=== PATIENT | male | born 1945 | race Caucasian/White ===

== ENCOUNTER 2020-05-05 20:43 | Inpatient (IN) | payer MEDICARE, OTHER, SELFPAY ==
[2020-05-05 20:50] VITALS: BP 176/57; PULSE 72; RESP 20; TEMP 38; O2SAT 95; BMI 30.8
--- NOTE | 2020-05-05 21:05 | CT_ITS ---
EXAMINATION: CT ABDOMEN AND PELVIS WITHOUT CONTRAST CLINICAL INFORMATION: LLQ pain ? diverticulitis with perforation . COMPARISON: Prior studies including the 04/14/2015 CT scan. TECHNIQUE: Multidetector volumetric imaging was performed from the superior aspect of the liver through the pubic symphysis without contrast per request. Sagittal and coronal reformatted images were obtained on the technologist workstation. This CT examination was performed using dose optimization techniques as appropriate, variously including the following: *Automated exposure control *Adjustment of mA and/or kV according to patient size (this includes techniques or standardized protocols for targeted exams where dose is matched to indication/reason for exam; i.e. extremities or head) *Use of iterative reconstruction technique DLP: 688 mGy-cm. FINDINGS: LUNG BASES: The visualized lung bases are unremarkable. Small hiatal hernia LIVER, GALLBLADDER, BILIARY TREE: The non-contrast liver is normal in size, shape, and attenuation. No focal hepatic lesion or biliary ductal dilatation is present. Gallbladder surgically absent PANCREAS: Atrophic SPLEEN: Unremarkable. ADRENAL GLANDS: Unremarkable. KIDNEYS AND URETERS: The kidneys are normal in size, shape, and attenuation. No hydronephrosis, hydroureter, or calculi seen. No perinephric stranding. BLADDER: Decompressed. GASTROINTESTINAL TRACT: Extensive colonic diverticulosis more so in the sigmoid colon. No obstructive changes are noted. There is abnormal appearance to the right lower quadrant/cecum. Although this area is decompressed but does appear to be wall thickening extending to an abnormal appearing thickened appendix that had a more normal appearance on the 2015 study. This appendix is very ill-defined currently measures up to 1.6 cm in diameter with surrounding likely complex fluid. This difficult to assess on this noncontrast study. There is free fluid seen elsewhere in the abdomen and pelvis more so in the dependent portion of the pelvis ABDOMINAL WALL: Small fat-containing hiatal hernia. There is a soft tissue nodule within this hernia possibly representing a Sister Myrtle José nodule. This nodule was not seen on the 2015 study LYMPHOVASCULAR STRUCTURES: Again there is diffuse bulky adenopathy within the root of the mesentery extending to the mesenteric fat. There is also adenopathy in the retroperitoneum periaortic and pericaval locations. The bulk of the adenopathy appears similar to the prior study suggesting a more chronic indolent process. Vascular calcification within the aorta iliac system. PELVIC VISCERA: Incidental prostatic calcifications OSSEUS STRUCTURES: Multiple degenerative changes in the spine. 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 CT/CT abdomen pelvis wo con IMPRESSION: This is an unusual study. There is bulky mesenteric and retroperitoneal adenopathy as noted on the 2015 study. In the acute setting leukemia/lymphoma would be suspected with this appearance and distribution however this has been present since 2015 suggesting possible indolent process although low-grade lymphoma/leukemia would be suspected. Interestingly the spleen does not appear to be enlarged. Although some of the changes in the periappendiceal/right lower quadrant region could be related to the patient's underlying diffuse adenopathy I'm more concerned that there is a ill-defined appendiceal mass now with periappendiceal stranding and complex fluid. This area had a more normal appearance on the 2015 study. This is difficult to define further on this study without intravenous contrast. I would recommend repeating the CT scan of the abdomen and pelvis with both oral and IV contrast to evaluate this further. There is a small fat-containing periumbilical hernia that does contain a new 1 cm nodule which was not present on the 2015 study. This nodule could represent a Sister Myrtle Kumar nodule which can be seen in the setting of underlying abdominal malignancy. Clinical correlation recommended. Likely biopsy of this nodule will be needed. This critical result was discussed with Dr. Copeland at 05/05/2020 10:11 PM and it was ascertained that the content and urgency of the report was understood at the time of direct communication.
--- NOTE | 2020-05-05 21:05 | ECG_ITS ---
Test Reason : AFIB Blood Pressure : / mmHG Vent. Rate : 076 BPM Atrial Rate : 080 BPM P-R Int : 000 ms QRS Dur : 098 ms QT Int : 362 ms P-R-T Axes : 000 -42 046 degrees QTc Int : 407 ms Rhythm shows atrial flutter with variable block with occasional Premature ventricular complexes Left axis deviation Abnormal ECG When compared with ECG of 18-APR-2019 23:18, Rhythm shows atrial flutter with variable block has replaced Atrial fibrillation Premature ventricular complexes are new \ Referred By: Burton Copeland Electronically Signed By:KAYLEN DOHERTY MD
--- NOTE | 2020-05-05 21:06 | ED.ABDPAIN ---
HPI - Abdominal Pain General Chief Complaint: Abdominal Pain Stated Complaint: ABDOMINAL PAIN Time Seen by Provider: 05/05/20 20:55 Source: patient Mode of arrival: ambulatory Limitations: no limitations History of Present Illness HPI narrative: patient with history of diverticulitis in the past on Eliquis for AFib was doing okay until yesterday morning when he woke up and went to bathroom noticed sudden onset of pain in mid abdomen pain stayed throughout the day off and on did not feel hungry feel bloated got better a little bit today and just prior to arrival when she got up from the chair noticed severe pain mostly on the left lower quadrant also radiating to the right lower quadrant that brought to the ER. Patient denied nausea/vomiting did not eat much for last 48 hours MD elicited complaint: abdominal pain Pertinent past history: none Onset (ago): day(s) (2) Location: diffuse, RLQ and LLQ Severity: moderate Quality: dull Radiation: LLQ and RLQ Exacerbating factors: eating and movement Relieving factors: nothing Associated symptoms: anorexia Related Data Previous Rx's Medication Instructions Recorded hydrochlorothiazide 25 mg tablet 25 mg PO DAILY #90 tab 04/02/20 Allergies Allergy/AdvReac Type Severity Reaction Status Date / Time No Known Allergies Allergy Unverified 03/18/20 14:39 [No Known Allergies*] Review of Systems Review of Systems REVIEW OF SYSTEMS: Pertinent positives and negatives are stated above in the history. GEN: no fevers, chills, fatigue HEENT: no nasal congestion, sore throat, ear pain NEURO: no headache, dizziness, focal weakness PULM: no cough, shortness of breath CV: no chest pain, palpitations, LE edema ABD: no nausea, vomiting, diarrhea : no dysuria, urgency, frequency SKIN: no rash ROS otherwise negative x 10 Physical Exam Vital Signs: Vital Signs: Vital Signs Temp Pulse Resp BP Pulse Ox 05/05/20 22:29 80 20 167/64 H 96 05/05/20 20:50 100.4 F 72 20 176/57 H 95 Body Mass Index 30.8 VITAL SIGNS: Reviewed. GENERAL: Well developed, well nourished, in mild distress. HEAD: Normocephalic/atraumatic, EYES: PERRLA No pallor/icterus noted EARS: Ext canals without abnormality NOSE: Nares patent bilateral OROPHARYNX: Oral mucosa moist no oral lesions NECK: Supple, no adenopathy LUNGS: Normal breath sounds. No adventitious sounds or accessory muscle use CARDIOVASCULAR: Regular rate and rhythm without noted murmurs, no JVD or lower extremity edema. ABDOMEN: Soft, deep percussion tenderness LLQ and RLQ. No rigidity. + guarding. No palpable masses or hernias noted MUSCULOSKELETAL: No tenderness, deformities, EXTREMITIES: No cyanosis or edema. SKIN: no rashes, NEUROLOGIC: Alert and oriented x 3. 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 Case discussed with Dr. Leroy surgeon will evaluate the patient in the morning does not think is a surgical case at this time will admit the patient to medical service patient is not septic at this time MDM - Abdominal Pain Differential Diagnosis Differential diagnosis: Likely abdominal pain, acute appendicitis, diverticulitis and pancreatitis Medical Records Attestation: I reviewed the patient's medical records. Lab Data Attestation: I reviewed the patient's lab results. Result diagrams: 05/05/20 21:32 05/05/20 21:32 Labs: Lab Results 05/05/20 05/05/20 05/05/20 Range/Units 21:32 21:32 21:32 WBC 8.5 (4.8-10.8) X10*3/uL RBC 4.66 (4.60-5.80) X10*6/uL Hgb 15.5 (14.0-18.0) g/dl Hct 45.1 (42-52) % MCV 96.8 (80-98) fL MCH 33.3 H (27.0-33.0) pg MCHC 34.4 (31.0-36.0) g/dl RDW 12.9 (11.0-16.0) % Plt Count 165 (160-400) X10*3/uL MPV 9.4 (9.4-12.4) fL Immature Gran % (Auto) 0.2 (0.0-0.4) % Neut % (Auto) 89.7 H (45-73) % Lymph % (Auto) 4.0 L (20-40) % [place] % (Auto) 5.8 (2-11) % Eos % (Auto) 0.1 (0-4) % Baso % (Auto) 0.2 (0-2) % Lymph # (Auto) 0.3 L (1.2-4.9) X10*3/uL [place] # (Auto) 0.5 (0.1-1.2) X10*3/uL Eos # (Auto) 0.0 (0.0-0.4) X10*3/uL Baso # (Auto) 0.0 (0.0-0.2) X10*3/uL Abs Immat Gran (auto) 0.02 (0.00-0.03) X10*3/uL Absolute Neuts (auto) 7.6 (2.0-8.3) X10*3/uL Absolute Nucleated RBC 0.000 (0.0-0.012) X10*3/uL Nucleated RBC % (auto) 0.0 (0.0-0.2) /100WBC Smear Tech's Comments VERIFIED PT (10.8-13.0) SEC INR (0.9-1.1) APTT (24.1-38.0) SEC Sodium 141 (135-145) mmol/L Potassium 3.9 (3.3-5.1) mmol/l Chloride 99 (96-108) mmol/L Carbon Dioxide 31 H (22-29) mmol/L Anion Gap 15 (12-20) BUN 21 H (9-16) mg/dL Creatinine 0.83 (0.5-1.4) mg/dL Estim Creat Clear Calc 79.3 Estimated GFR > 60 Random Glucose 115 (60-115) mg/dL Lactic Acid 2.5 H* (0.5-2.0) mmol/L Calcium 9.4 (8.4-10.2) mg/dL Total Bilirubin 1.7 H (0.0-1.0) mg/dL AST 35 (5-37) U/L ALT 36 (0-40) U/L Alkaline Phosphatase 61 (39-117) U/L Total Protein 7.5 (6.5-8.0) g/dL Albumin 4.6 (3.5-5.0) g/dL Lipase 11 (8-78) U/L Urine Color Urine Appearance Urine pH (5.0-8.0) Ur Specific Louise (1.005-1.025) Urine Protein (NEG-TRACE) MG/DL Urine Glucose (UA) (NEG) MG/DL Urine Ketones (NEG) MG/DL Urine Blood (NEG) Urine Nitrite (NEG) Ur Leukocyte Esterase (NEG) Urine RBC (0) /HPF Urine WBC (0-4) /HPF Ur Squamous Epith Cells /LPF Calcium Oxalate Crystal /LPF Urine Bacteria /LPF 05/05/20 05/05/20 Range/Units 21:59 21:59 WBC (4.8-10.8) X10*3/uL RBC (4.60-5.80) X10*6/uL Hgb (14.0-18.0) g/dl Hct (42-52) % MCV (80-98) fL MCH (27.0-33.0) pg MCHC (31.0-36.0) g/dl RDW (11.0-16.0) % Plt Count (160-400) X10*3/uL MPV (9.4-12.4) fL Immature Gran % (Auto) (0.0-0.4) % Neut % (Auto) (45-73) % Lymph % (Auto) (20-40) % [place] % (Auto) (2-11) % Eos % (Auto) (0-4) % Baso % (Auto) (0-2) % Lymph # (Auto) (1.2-4.9) X10*3/uL [place] # (Auto) (0.1-1.2) X10*3/uL Eos # (Auto) (0.0-0.4) X10*3/uL Baso # (Auto) (0.0-0.2) X10*3/uL Abs Immat Gran (auto) (0.00-0.03) X10*3/uL Absolute Neuts (auto) (2.0-8.3) X10*3/uL Absolute Nucleated RBC (0.0-0.012) X10*3/uL Nucleated RBC % (auto) (0.0-0.2) /100WBC Smear Tech's Comments PT 18.0 H (10.8-13.0) SEC INR 1.5 H (0.9-1.1) APTT 32.1 (24.1-38.0) SEC Sodium (135-145) mmol/L Potassium (3.3-5.1) mmol/l Chloride (96-108) mmol/L Carbon Dioxide (22-29) mmol/L Anion Gap (12-20) BUN (9-16) mg/dL Creatinine (0.5-1.4) mg/dL Estim Creat Clear Calc Estimated GFR Random Glucose (60-115) mg/dL Lactic Acid (0.5-2.0) mmol/L Calcium (8.4-10.2) mg/dL Total Bilirubin (0.0-1.0) mg/dL AST (5-37) U/L ALT (0-40) U/L Alkaline Phosphatase (39-117) U/L Total Protein (6.5-8.0) g/dL Albumin (3.5-5.0) g/dL Lipase (8-78) U/L Urine Color YELLOW Urine Appearance HAZY Urine pH 7.5 (5.0-8.0) Ur Specific Louise 1.020 (1.005-1.025) Urine Protein NEG (NEG-TRACE) MG/DL Urine Glucose (UA) NEG (NEG) MG/DL Urine Ketones NEG (NEG) MG/DL Urine Blood 1+ H (NEG) Urine Nitrite NEG (NEG) Ur Leukocyte Esterase NEG (NEG) Urine RBC 10-14 H (0) /HPF Urine WBC 1-4 (0-4) /HPF Ur Squamous Epith Cells TRACE /LPF Calcium Oxalate Crystal 1+ /LPF Urine Bacteria TRACE /LPF Imaging Data CT scan - abdomen: Radiologist's impression: CT/CT abdomen pelvis wo con IMPRESSION: This is an unusual study. There is bulky mesenteric and retroperitoneal adenopathy as noted on the 2015 study. In the acute setting leukemia/lymphoma would be suspected with this appearance and distribution however this has been present since 2015 suggesting possible indolent process although low-grade lymphoma/leukemia would be suspected. Interestingly the spleen does not appear to be enlarged. Although some of the changes in the periappendiceal/right lower quadrant region could be related to the patient's underlying diffuse adenopathy I'm more concerned that there is a ill-defined appendiceal mass now with periappendiceal stranding and complex fluid. This area had a more normal appearance on the 2015 study. This is difficult to define further on this study without intravenous contrast. I would recommend repeating the CT scan of the abdomen and pelvis with both oral and IV contrast to evaluate this further. There is a small fat-containing periumbilical hernia that does contain a new 1 cm nodule which was not present on the 2015 study. This nodule could represent a Sister Myrtle Kumar nodule which can be seen in the setting of underlying abdominal malignancy. Clinical correlation recommended. Likely biopsy of this nodule will be needed. This critical result was discussed with Dr. Copeland at 05/05/2020 10:11 PM and it was ascertained that the content and urgency of the report was understood at the time of direct communication. Discharge Plan Discharge Clinical Impression: Abdominal pain Qualifiers: Abdominal location: generalized Qualified Code(s): R10.84 - Generalized abdominal pain Lymphoma Qualifiers: Lymphoma type: non-Hodgkin Non-Hodgkin lymphoma type: unspecified type Lymphoma site: intra-abdominal nodes Qualified Code(s): C85.93 - Non-Hodgkin lymphoma, unspecified, intra-abdominal lymph nodes Patient Disposition: Admitted As Inpatient [facility] Social History Social History Alcohol intake: current Alcohol intake frequency: 0-2 drinks per day Alcohol type: hard liquor Smoking Status: Former smoker Smoked in Last 30 Days: No Use of substances other than those prescribed or required for medical reasons: No Advance Directives: No Advance Directives Information Provided: Yes
[2020-05-05 21:44] LABS: Basophils Percent Auto 0.2 % (0-2); Eosinophils Percent Auto 0.1 % (0-4); Hematocrit 45.1 % (42-52); Hemoglobin 15.5 g/dl (14.0-18.0); Imm Gran Abs Auto 0.02 X10*3/uL (0.00-0.03); Imm Gran Pct Auto 0.2 % (0.0-0.4); Lymphocytes Absolute Auto 0.3 X10*3/uL (1.2-4.9); MANUAL DIFF FLAG SCAN; Mean Corpuscular HGB Conc 34.4 g/dl (31.0-36.0); Mean Corpuscular Hemoglobin 33.3 pg (27.0-33.0); Mean Corpuscular Volume 96.8 fL (80-98); Mean Platelet Volume 9.4 fL (9.4-12.4); Monocytes Absolute Auto 0.5 X10*3/uL (0.1-1.2); Monocytes Percent Auto 5.8 % (2-11); Neutrophils Absolute Auto 7.6 X10*3/uL (2.0-8.3); Neutrophils Percent Auto 89.7 % (45-73); Platelet Count 165 X10*3/uL (160-400); Red Blood Count 4.66 X10*6/uL (4.60-5.80); Red Cell Distribution Width 12.9 % (11.0-16.0); SCAN SMEAR FLAG 1; White Blood Count 8.5 X10*3/uL (4.8-10.8)
[2020-05-05 21:49] LABS: SLIDE REVIEW VERIFIED
[2020-05-05 22:03] LABS: Lactic Acid 2.5 mmol/L (0.5-2.0)
[2020-05-05 22:10] LABS: Glucose Urine UA NEG (NEG); Leukocyte Esterase Urine NEG (NEG); Nitrite Urine NEG (NEG); PH 7.5 (5.0-8.0); Urine Blood 1+ (NEG); Urine Ketones NEG (NEG); Urine Protein NEG (NEG-TRACE)
[2020-05-05 22:12] LABS: Appearance Urine HAZY; Color Urine YELLOW
[2020-05-05 22:17] LABS: Bacteria Urine TRACE /LPF; Calcium Oxalate Crystals Urine 1+ /LPF; Squamous Epithelial Cell Urine TRACE /LPF
[2020-05-05] MEDS: 0.9 % Sodium Chloride 1,000 ML 999 ML IVCONT ×2 (22:19)
[2020-05-05] MEDS: Piperacillin Sodium/Tazobactam 3.375 GM in 0.9 % Sodium Chloride 50 ML IV (22:26)
[2020-05-05 22:29] VITALS: BP 167/64; PULSE 80; RESP 20; O2SAT 96
[2020-05-05 22:30] LABS: Alanine Aminotransferase 36 U/L (0-40); Albumin Level 4.6 g/dL (3.5-5.0); Alkaline Phosphatase 61 U/L (39-117); Anion Gap 15 (12-20); Aspartate Amino Transferase 35 U/L (5-37); Bilirubin Total 1.7 mg/dL (0.0-1.0); Blood Urea Nitrogen 21 mg/dL (9-16); Calcium 9.4 mg/dL (8.4-10.2); Carbon Dioxide 31 mmol/L (22-29); Chloride 99 mmol/L (96-108); Creatinine Clr Calc Pharmacy 79.3; Estimated Glomerular Filt Rate > 60; Glucose Random 115 mg/dL (60-115); Lipase 11 U/L (8-78); Potassium 3.9 mmol/l (3.3-5.1); Sodium 141 mmol/L (135-145); Total Protein 7.5 g/dL (6.5-8.0)
[2020-05-05 22:50] LABS: INTERNATIONAL NORM RATIO 1.5 (0.9-1.1)
[2020-05-05 22:53] LABS: Partial Thromboplastin Time 32.1 SEC (24.1-38.0)
[2020-05-05 23:33] LABS: Reflex Lactate? Lactic Acid Added
--- NOTE | 2020-05-05 23:47 | PC.NURSE ---
pt was seen by the hospitalist and pt mentioned he wanted his girlfriend to take his wallet and his sanderson [phone] which was verified with pt with this rn and with [address] way. money and wallet handed over and counted infront of his girlfriend tiago [phone].
[2020-05-06] VITALS: BP 133/46; PULSE 78; RESP 18; O2SAT 98
--- NOTE | 2020-05-06 | CT_ITS ---
EXAMINATION: CT ABDOMEN AND PELVIS WITH CONTRAST CLINICAL INFORMATION: Abdominal mass. COMPARISON: CT abdomen and pelvis 04/14/2015 and 05/05/2020 TECHNIQUE: Multidetector volumetric images were obtained from the superior aspect of the liver through the pubic symphysis following administration 85 mL ofOmnipaque 350 intravenous contrast. Sagittal and coronal reformatted images were obtained on the technologist's workstation. Oral contrast: No This CT examination was performed using dose optimization techniques as appropriate, variously including the following: *Automated exposure control *Adjustment of mA and/or kV according to patient size (this includes techniques or standardized protocols for targeted exams where dose is matched to indication/reason for exam; i.e. extremities or head) *Use of iterative reconstruction technique DLP: 453 mGy-cm FINDINGS: LUNG BASES: The heart size is normal. Lung bases are clear. LIVER, GALLBLADDER, AND BILIARY TREE: The liver is normal in size, shape, and attenuation. There are punctate hypodensities seen in right lobe and right hepatic lobe presumed small cysts there are surgical clips in the right hepatic fossa from previous cholecystectomy. PANCREAS: There is minimal haziness seen surrounding the head and the uncinate process of the pancreas.. SPLEEN: Unremarkable. ADRENAL GLANDS: Unremarkable. KIDNEYS AND URETERS: The kidneys are normal in size, shape, and attenuation. No hydronephrosis, hydroureter, or calculi seen. No perinephric stranding. BLADDER: Unremarkable. GASTROINTESTINAL TRACT: There is colonic diverticulosis without any mural thickening and pericolic fat stranding to suspect any diverticulitis. There is contrast opacified small bowel loops there is mild mural thickening and periileal fluid collection likely from enteritis rest of the small bowel loops are normal caliber. The stomach is nondistended. Appendix measures 1.2 cm is transverse diameter on axial image 59/3. Mild fat stranding and fluid collection seen in the right paracolic gutter and surrounding appendix. ABDOMINAL WALL: Small umbilical hernia containing small nodule and intraperitoneal fat. LYMPH NODES: Again visualized is diffuse bulky retroperitoneal and extensive mesenteric lymphadenopathy seen in the upper airway study from yesterday similar to yesterday's exam. There is diffuse mesenteric haziness as well. VASCULAR: Mild left ischemic calcification of abdominal aorta without aneurysmal dilatation. PELVIC VISCERA: Unremarkable. OSSEOUS STRUCTURES: No lytic or sclerotic process seen. There is degenerative disc changes and vacuum disc phenomena throughout lumbar spine. No lytic process. CT/CT abdomen pelvis w con IMPRESSION: Diffuse bulky and retroperitoneal adenopathy suspicious for leukemic or lymphoma. There is diffuse mesenteric haziness including fluid and fat stranding surrounding the appendix is now measures 1.2 cm in diameter. Also visualized is mild mural thickening involving the distal ileum which could represent inflammatory or infectious etiology. Small umbilical hernia containing fat and nodule within. Consider CT-guided lymph node biopsy for further evaluation.
--- NOTE | 2020-05-06 00:49 | P.HPIM_ITS ---
History of Present Illness Date of Service: 05/06/20 Chief Complaint: abdominal pain 74 y/o male with PMHX of HTN, Non hodking lymphoma and Afib on eliquis who prsented from home c/o abdominal pain. Per history provided by the patient, for the past 1 day has been having intermittent abdominal pain, more located in the LUQ, 10/10 in intensity, that comes and goes, which started suddently with no precipitating events. Patient reports that has been tolerating diet with no problem, denies any chest pain, SOB, nausea, vomiting or fever. Patient is a poor historian but reports having a hx of non hodking lymphoma which is not currently on treatment as it has been stable over the years. On presentation to the ED, initial work up found to be unremarkable except for lactic acidosis of 2.5. CT adomen done shows evidence of periappendiceal mass and periumbilical nodule which are new compared to previous imaging done. General surgery consulted per ED consulted who suggested medicine admission and surgery for management of mass. Patient seen and evaluated at the bedside, laying down in bed in no acute distress. ROS as above otherwise negative. Physical exam elicits tenderness in the RLQ with no guarding. No palpable mass on evaluation. PMHX: HTN, afib on eliquis, non hodking lymphoma PSx: none Toxic habits: no hx of alcohol abuse, smoking or IVDA Review of Systems Gastrointestinal: Gastrointestinal: Reports other (abdominal pain) [facility] Functional capacity: independent ambulation Family history: reviewed and not pertinent Social History Alcohol intake: current Alcohol intake frequency: 0-2 drinks per day Alcohol type: hard liquor Smoking Status: Former smoker Smoked in Last 30 Days: No Use of substances other than those prescribed or required for medical reasons: No Advance Directives: No Advance Directives Information Provided: Yes Meds Allergies Allergy/AdvReac Type Severity Reaction Status Date / Time No Known Allergies Allergy Unverified 03/18/20 14:39 [No Known Allergies*] Home Medications Medication Instructions Recorded Confirmed Type Flonase 1 spray INTRANASAL DAILY PRN 05/05/20 05/06/20 History apixaban [Eliquis] 1 tab PO BID 05/05/20 05/05/20 History latanoprost 1 drp INTRAOCULAR DAILY 05/05/20 05/06/20 History latanoprost 1 drp OPHTHALMIC (EYE) BEDTIME 05/05/20 05/06/20 History lorazepam 0.5 mg PO DAILY PRN 05/05/20 05/06/20 History losartan 100 mg PO DAILY 05/05/20 05/06/20 History turmeric 1,000 mg PO DAILY 05/05/20 05/06/20 History Physical Exam Vital Signs and Narrative: Vital Signs: Last Vital Signs Temp 100.4 F 05/05/20 20:50 Pulse 80 05/05/20 22:29 Resp 20 05/05/20 22:29 BP 167/64 H 05/05/20 22:29 Pulse Ox 96 05/05/20 22:29 Body Mass Index 30.8 Const: General: cooperative, no acute distress and well developed Orientation/consciousness: oriented to person, oriented to place and oriented to time HENMT: Head: Yes normal to inspection Eyes: General: appearance normal, both eyes and all related structures Neck: Yes normal visual inspection Chest: Chest palpation & inspection: normal inspection of the chest Resp: Effort & Inspection: normal respiratory effort Cardio: Jugular venous distension: no JVD Rhythm: abnormal rhythm Heart sounds: S1 normal heart sound present and S2 normal heart sound present GI: Inspection: Yes normal to inspection Palpation (GI): Other GI palpation findings present (RLQ tenderness) Skin: General skin exam: no rashes or lesions noted Neuro: General: oriented to person, oriented to place and oriented to time Cognition (Neuro): normal cognition Results Labs Labs: Laboratory Tests 05/05/20 05/05/20 05/05/20 21:32 21:32 21:32 WBC 8.5 RBC 4.66 Hgb 15.5 Hct 45.1 MCV 96.8 MCH 33.3 H MCHC 34.4 RDW 12.9 Plt Count 165 MPV 9.4 Immature Gran % (Auto) 0.2 Neut % (Auto) 89.7 H Lymph % (Auto) 4.0 L [place] % (Auto) 5.8 Eos % (Auto) 0.1 Baso % (Auto) 0.2 Lymph # (Auto) 0.3 L [place] # (Auto) 0.5 Eos # (Auto) 0.0 Baso # (Auto) 0.0 Abs Immat Gran (auto) 0.02 Absolute Neuts (auto) 7.6 Absolute Nucleated RBC 0.000 Nucleated RBC % (auto) 0.0 Smear Tech's Comments VERIFIED PT INR APTT Sodium 141 Potassium 3.9 Chloride 99 Carbon Dioxide 31 H Anion Gap 15 BUN 21 H Creatinine 0.83 Estim Creat Clear Calc 79.3 Estimated GFR > 60 Random Glucose 115 Lactic Acid 2.5 H* Calcium 9.4 Total Bilirubin 1.7 H AST 35 ALT 36 Alkaline Phosphatase 61 Total Protein 7.5 Albumin 4.6 Lipase 11 Urine Color Urine Appearance Urine pH Ur Specific [place] Urine Protein Urine Glucose (UA) Urine Ketones Urine Blood Urine Nitrite Ur Leukocyte Esterase Urine RBC Urine WBC Ur Squamous Epith Cells Calcium Oxalate Crystal Urine Bacteria 05/05/20 05/05/20 21:59 21:59 WBC RBC Hgb Hct MCV MCH MCHC RDW Plt Count MPV Immature Gran % (Auto) Neut % (Auto) Lymph % (Auto) [place] % (Auto) Eos % (Auto) Baso % (Auto) Lymph # (Auto) [place] # (Auto) Eos # (Auto) Baso # (Auto) Abs Immat Gran (auto) Absolute Neuts (auto) Absolute Nucleated RBC Nucleated RBC % (auto) Smear Tech's Comments PT 18.0 H INR 1.5 H APTT 32.1 Sodium Potassium Chloride Carbon Dioxide Anion Gap BUN Creatinine Estim Creat Clear Calc Estimated GFR Random Glucose Lactic Acid Calcium Total Bilirubin AST ALT Alkaline Phosphatase Total Protein Albumin Lipase Urine Color YELLOW Urine Appearance HAZY Urine pH 7.5 Ur Specific [place] 1.020 Urine Protein NEG Urine Glucose (UA) NEG Urine Ketones NEG Urine Blood 1+ H Urine Nitrite NEG Ur Leukocyte Esterase NEG Urine RBC 10-14 H Urine WBC 1-4 Ur Squamous Epith Cells TRACE Calcium Oxalate Crystal 1+ Urine Bacteria TRACE Assessment and Plan (1) Lymphoma: Qualifiers: Lymphoma site: intra-abdominal nodes Lymphoma type: non-Hodgkin Non-Hodgkin lymphoma type: unspecified type Qualified Code(s): C85.93 - Non- Hodgkin lymphoma, unspecified, intra-abdominal lymph nodes Status: Acute Hx of nonhodking lymphoma. CT findings of periappendiceal mass which raises question for possible malignancy and periumbilical nodule Pain control serial abdominal exam diet as tolerated follow up CT with and without contrast for better evaluation of mass General surgery for evaluation in the am Hematology/Oncology consult in the am (2) Abdominal pain: Qualifiers: Abdominal location: generalized Qualified Code(s): R10.84 - Generalized abdominal pain Status: Acute as above (3) Hypertension: Status: Acute continue with home BP med (4) Afib: Status: Acute continue with eliquis home meds
[2020-05-06 01:20] LABS: ~Lactic Acid-LAB USE ONLY 1.8 mmol/L (0.5-2.0)
[2020-05-06 01:28] LABS: SARS COV2 PCR INHOUSE NEGATIVE (Negative)
--- NOTE | 2020-05-06 01:47 | PC.NURSE ---
pt is sitting in a chair at bedside. pt denies pain unless he is moving around
[2020-05-06 02:27] VITALS: BP 166/67; PULSE 87; RESP 19; TEMP 37; O2SAT 96
[2020-05-06 07:22] VITALS: BP 165/68; PULSE 71; RESP 18; TEMP 36.8; O2SAT 96
--- NOTE | 2020-05-06 09:20 | MHC.CM.PN ---
Addendum entered by Landy Oseguera 05/06/20 09:26: PCP IS JD WILKERSON Original Note: PATIENT LIVES ALONE. HE HAS A CANE THAT HE USES OCCASIONALLY. FULLY INDEPENDENT AND DRIVES SELF WHERE NEEDED. HCP IS ON FILE. A COPY HAS BEEN PRINTED OUT AND IS NOW IN CHART. PATIENT IS HOPING TO RETURN HOME WITH NO SERVICES. HE IS SCHEDULED FOR PROCEDURE TODAY. CASE MANAGEMENT FOLLOWING. IMM 05/06 IN CHART
[2020-05-06] MEDS: 0.9 % Sodium Chloride Flush 3 ML SYRINGE IVFLUSH (09:32)
--- NOTE | 2020-05-06 10:05 | PM.CNGS ---
History of Present Illness Consult details Narrative: 74-year-old male referred for a [place] appendiceal mass. He came in last night because of what he describes as mild abdominal pain diffusely for the past 2 days. He denies any nausea or vomiting. He had a CAT scan showing a nodule on the umbilicus is as well as a [place] appendiceal mass. His history significant for non-Hodgkin's lymphoma. He said he was being seen by an oncologist in [place] about 5 years ago because of this. He is not very good with the details but apparently is not on treatment anymore. He otherwise states has been doing well. He denies any night sweats or fevers. He does have tremors but he says he has had this for many years. Review of Systems Constitutional: Constitutional: Denies chills and Denies fever(s) Cardiovascular: Cardiovascular: Denies chest pain, Denies dyspnea and Denies dyspnea on exertion Respiratory: Respiratory: Denies cough, Denies dyspnea and Denies dyspnea on exertion Gastrointestinal: Gastrointestinal: Reports abdominal pain, Denies hematochezia and Denies change in bowel habits Genitourinary: Genitourinary: Denies hematuria and Denies difficulty urinating Musculoskeletal: Musculoskeletal: Denies back pain and Denies limited range of motion Neurologic: Denies focal weakness, Denies convulsions and Reports tremor(s) Psychiatric: Psychiatric: Denies depression and Denies mood swings PMFSH Past Medical History Medical History (Updated 05/06/20 @ 10:09 by Star Romano MD) Mass of appendix Functional capacity: independent ambulation Family History Family history: reviewed and not pertinent Social History Social History Household Members: None Housing: Apartment Do you presently have visiting nurse or other home services: No Alcohol intake: current Alcohol intake frequency: 0-2 drinks per day Alcohol type: hard liquor Smoking Status: Former smoker Smoked in Last 30 Days: No Use of substances other than those prescribed or required for medical reasons: No Have you been hit, kicked, punched, or otherwise hurt by someone within the past year? If so, by whom?: No Do you feel safe in your current relationship?: No Is there a partner from a previous relationship who is making you feel unsafe now?: No Are you made to feel afraid or neglected: No Advance Directives: Yes (Daughter) Advance Directives Information Provided: Yes Advance Directives on File: No Advance Directives Date on File: 05/06/20 Do you have thoughts of harming others: None Do you have a plan to hurt others: No Plan Recently lost weight without trying: No service: No Current occupational status: retired Meds Allergies Allergy/AdvReac Type Severity Reaction Status Date / Time No Known Allergies Allergy Unverified 03/18/20 14:39 [No Known Allergies*] Home Medications Medication Instructions Recorded Confirmed Type Flonase 1 spray INTRANASAL DAILY PRN 05/05/20 05/06/20 History apixaban [Eliquis] 1 tab PO BID 05/05/20 05/05/20 History latanoprost 1 drp INTRAOCULAR DAILY 05/05/20 05/06/20 History latanoprost 1 drp OPHTHALMIC (EYE) BEDTIME 05/05/20 05/06/20 History lorazepam 0.5 mg PO DAILY PRN 05/05/20 05/06/20 History losartan 100 mg PO DAILY 05/05/20 05/06/20 History turmeric 1,000 mg PO DAILY 05/05/20 05/06/20 History Physical Exam Vital Signs: Vital Signs: Vital Signs Temp Pulse Resp BP Pulse Ox 05/06/20 07:22 98.3 F 71 18 165/68 H 96 05/06/20 02:27 98.6 F 87 19 166/67 H 96 05/06/20 00:00 78 18 133/46 L 98 05/05/20 22:29 80 20 167/64 H 96 05/05/20 20:50 100.4 F 72 20 176/57 H 95 Body Mass Index 30.8 Const: General: comfortable and no acute distress Orientation/consciousness: patient oriented x3 Neck: Neck: Yes no lymphadenopathy Resp: Auscultation: clear to auscultation bilaterally Cardio: Rhythm: regular rhythm GI: Other: Vague mass on the umbilicus, nontender Palpation (GI): Soft to palpation, nontender and no guarding Neuro: General: patient oriented x3 Results Labs Result diagrams: 05/05/20 21:32 05/05/20 21:32 Labs: Abnormal lab results 05/05/20 05/05/20 05/05/20 Range/Units 21:32 21:32 21:32 MCH 33.3 H (27.0-33.0) pg Neut % (Auto) 89.7 H (45-73) % Lymph % (Auto) 4.0 L (20-40) % Lymph # (Auto) 0.3 L (1.2-4.9) X10*3/uL PT (10.8-13.0) SEC INR (0.9-1.1) Carbon Dioxide 31 H (22-29) mmol/L BUN 21 H (9-16) mg/dL Lactic Acid 2.5 H* (0.5-2.0) mmol/L Total Bilirubin 1.7 H (0.0-1.0) mg/dL Urine Blood (NEG) Urine RBC (0) /HPF 05/05/20 05/05/20 Range/Units 21:59 21:59 MCH (27.0-33.0) pg Neut % (Auto) (45-73) % Lymph % (Auto) (20-40) % Lymph # (Auto) (1.2-4.9) X10*3/uL PT 18.0 H (10.8-13.0) SEC INR 1.5 H (0.9-1.1) Carbon Dioxide (22-29) mmol/L BUN (9-16) mg/dL Lactic Acid (0.5-2.0) mmol/L Total Bilirubin (0.0-1.0) mg/dL Urine Blood 1+ H (NEG) Urine RBC 10-14 H (0) /HPF Short CBC 05/05/20 Range/Units 21:32 WBC 8.5 (4.8-10.8) X10*3/uL Hgb 15.5 (14.0-18.0) g/dl Hct 45.1 (42-52) % Plt Count 165 (160-400) X10*3/uL BMP 05/05/20 21:32 Sodium 141 Potassium 3.9 Chloride 99 Carbon Dioxide 31 H BUN 21 H Creatinine 0.83 Calcium 9.4 Liver Function 05/05/20 Range/Units 21:32 Total Bilirubin 1.7 H (0.0-1.0) mg/dL AST 35 (5-37) U/L ALT 36 (0-40) U/L Alkaline Phosphatase 61 (39-117) U/L Albumin 4.6 (3.5-5.0) g/dL Urine 05/05/20 Range/Units 21:59 Urine Color YELLOW Urine Appearance HAZY Urine pH 7.5 (5.0-8.0) Ur Specific [place] 1.020 (1.005-1.025) Urine Protein NEG (NEG-TRACE) MG/DL Urine Glucose (UA) NEG (NEG) MG/DL All other labs normal. Imaging Abdomen CT scan report/results: report reviewed and image reviewed Assessment and Plan (1) Mass of appendix: Status: Acute He has apparently been heel mass as described above. He also has a nodule on the umbilicus. In the light of his history of non-Hodgkin's lymphoma, I recurrence of the disease has to be ruled out. He is to undergo a repeat CAT scan with oral contrast today. I am going to review this with the radiologist. We will then discuss with the patient the next plan in his care. We may need to have a histopathologic diagnosis of the appendiceal mass via Interventional Radiology if need be. I will follow along while he is in the hospital.
--- NOTE | 2020-05-06 11:04 | MHC.CM.PN ---
PER PHYSICIAN ROUNDS, PLAN IS FOR BIOPSY OF ABDOMINAL MASS, FOLLOWED BY ONCOLOGY AND SURGICAL CONSULTS.
[2020-05-06] MEDS: Apixaban 5 MG TABLET PO (11:21)
[2020-05-06 11:22] VITALS: BP 163/63; PULSE 68
[2020-05-06] MEDS: Losartan Potassium 50 MG TABLET 100 MG PO (11:22)
[2020-05-06] MEDS: Barium Sulfate Oral (Vanilla) 450 ML ORAL.SUSP 900 ML PO (11:35)
[2020-05-06] MEDS: iohexoL 350 MG/ML 100 ML INFUS..BTL 85 ML IV (11:36)
--- NOTE | 2020-05-06 15:03 | PM.CNGS ---
History of Present Illness Consult details Consult date: 05/06/20 Reason for consult: abdominal pain Requesting physician: Abhinav Ferguson Narrative: Sean Carreno Jr LidaWilliam is a 74-year-old male patient presented to the emergency department with complaints of abdominal pain. The pain apparently began in the right upper quadrant and then became more diffuse. Pain did not seem to be associated with p.o. intake. Patient subsequently presented to the emergency department was noted to be tender in the right lower quadrant as well. Workup with a WBC was normal. CT of the abdomen however revealed diffuse mesenteric lymphadenopathy with thickening of the appendix apparent dilation of the appendix felt to be possibly due to lymphoma /leukemia. This morning the patient reports his abdominal pain is much improved and he has a appetite. He denies nausea or vomiting. He does have some pain when moving in bed. Review of Systems Constitutional: Constitutional: Denies chills, Denies fever(s), Denies headache(s) and Denies poor appetite ENT: Denies dizziness and Denies headache(s) Cardiovascular: Cardiovascular: Denies chest pain, Denies rapid heart rate, Denies palpitations and Denies slow heart rate Respiratory: Respiratory: Denies chest congestion, Denies cough, Denies pain on inspiration and Denies wheezing Gastrointestinal: Gastrointestinal: Reports abdominal pain, Denies bloating, Denies change in stool character, Denies constipation, Denies diarrhea, Denies nausea, Denies vomiting and Denies hematemesis Musculoskeletal: Musculoskeletal: Denies back pain, Denies arthralgias, Denies joint swelling and Denies numbness Integumentary/Breasts: Skin/Breast: Denies change in pigmentation, Denies erythema and Denies rash Neurologic: Denies confusion, Denies dizziness, Denies headache(s), Denies focal weakness, Denies numbness, Denies convulsions and Reports tremor(s) Psychiatric: Psychiatric: Denies anxiety, Denies confusion and Denies depression Endocrine: Endocrine: Denies palpitations Hematologic/Lymphatic: Hematologic/Lymphatic: Denies easy bleeding, Denies easy bruising and Denies lymphadenopathy Allergic/Immunologic: Allergic/Immunologic: Denies wheezing PMFSH Past Medical History Medical History (Updated 05/06/20 @ 15:07 by Sean Leroy MD) Afib Hypertension Lymphoma Mass of appendix Functional capacity: independent ambulation Family History Family history: reviewed and not pertinent Social History Social History Household Members: None Housing: Apartment Do you presently have visiting nurse or other home services: No Alcohol intake: current Alcohol intake frequency: 0-2 drinks per day Alcohol type: hard liquor Smoking Status: Former smoker Smoked in Last 30 Days: No Use of substances other than those prescribed or required for medical reasons: No Currently Displaying Signs/Symptoms of Drug Intoxication Withdrawal: No Have you been hit, kicked, punched, or otherwise hurt by someone within the past year? If so, by whom?: No Do you feel safe in your current relationship?: No Is there a partner from a previous relationship who is making you feel unsafe now?: No Are you made to feel afraid or neglected: No Advance Directives: Yes (Daughter) Advance Directives Information Provided: Yes Advance Directives on File: No Advance Directives Date on File: 05/06/20 Do you have thoughts of harming others: None Do you have a plan to hurt others: No Plan Recently lost weight without trying: No service: No Current occupational status: retired [employer] Allergies Allergy/AdvReac Type Severity Reaction Status Date / Time No Known Allergies Allergy Unverified 03/18/20 14:39 [No Known Allergies*] Home Medications Medication Instructions Recorded Confirmed Type Flonase 1 spray INTRANASAL DAILY PRN 05/05/20 05/06/20 History apixaban [Eliquis] 1 tab PO BID 05/05/20 05/05/20 History latanoprost 1 drp INTRAOCULAR DAILY 05/05/20 05/06/20 History latanoprost 1 drp OPHTHALMIC (EYE) BEDTIME 05/05/20 05/06/20 History lorazepam 0.5 mg PO DAILY PRN 05/05/20 05/06/20 History losartan 100 mg PO DAILY 05/05/20 05/06/20 History turmeric 1,000 mg PO DAILY 05/05/20 05/06/20 History Physical Exam Vital Signs: Vital Signs: Last Vital Signs Temp 98.3 F 05/06/20 07:22 Pulse 68 05/06/20 11:22 Resp 18 05/06/20 07:22 BP 163/63 H 05/06/20 11:22 Pulse Ox 96 05/06/20 07:22 Body Mass Index 30.8 Const: General: No confusion Nutritional Appearance: well nourished Orientation/consciousness: No confusion Eyes: Sclerae: sclerae normal EOM: EOMs intact bilaterally Neck: Neck: Yes normal visual inspection Resp: Effort & Inspection: normal respiratory effort, no cough and no respiratory distress Cardio: Jugular venous distension: no JVD Rate: regular rate Rhythm: regular rhythm GI: Inspection: Yes normal to inspection Palpation (GI): Soft to palpation, Tenderness to palpation present (GI) in the RLQ ( To deep palpation); with no rebound tenderness, no guarding, not rigid and no masses Percussion: Yes normal to percussion Auscultation: normal bowel sounds Skin: General skin exam: dry skin Rashes: no rashes Neuro: General: No confusion Extrem: General: Yes no clubbing, cyanosis or edema Right upper extremity: normal capillary refill Left upper extremity: full ROM Results Labs Result diagrams: 05/05/20 21:32 05/05/20 21:32 Labs: Abnormal lab results 05/05/20 05/05/20 05/05/20 Range/Units 21:32 21:32 21:32 MCH 33.3 H (27.0-33.0) pg Neut % (Auto) 89.7 H (45-73) % Lymph % (Auto) 4.0 L (20-40) % Lymph # (Auto) 0.3 L (1.2-4.9) X10*3/uL PT (10.8-13.0) SEC INR (0.9-1.1) Carbon Dioxide 31 H (22-29) mmol/L BUN 21 H (9-16) mg/dL Lactic Acid 2.5 H* (0.5-2.0) mmol/L Total Bilirubin 1.7 H (0.0-1.0) mg/dL Urine Blood (NEG) Urine RBC (0) /HPF 05/05/20 05/05/20 Range/Units 21:59 21:59 MCH (27.0-33.0) pg Neut % (Auto) (45-73) % Lymph % (Auto) (20-40) % Lymph # (Auto) (1.2-4.9) X10*3/uL PT 18.0 H (10.8-13.0) SEC INR 1.5 H (0.9-1.1) Carbon Dioxide (22-29) mmol/L BUN (9-16) mg/dL Lactic Acid (0.5-2.0) mmol/L Total Bilirubin (0.0-1.0) mg/dL Urine Blood 1+ H (NEG) Urine RBC 10-14 H (0) /HPF Short CBC 05/05/20 Range/Units 21:32 WBC 8.5 (4.8-10.8) X10*3/uL Hgb 15.5 (14.0-18.0) g/dl Hct 45.1 (42-52) % Plt Count 165 (160-400) X10*3/uL BMP 05/05/20 21:32 Sodium 141 Potassium 3.9 Chloride 99 Carbon Dioxide 31 H BUN 21 H Creatinine 0.83 Calcium 9.4 Liver Function 05/05/20 Range/Units 21:32 Total Bilirubin 1.7 H (0.0-1.0) mg/dL AST 35 (5-37) U/L ALT 36 (0-40) U/L Alkaline Phosphatase 61 (39-117) U/L Albumin 4.6 (3.5-5.0) g/dL Urine 05/05/20 Range/Units 21:59 Urine Color YELLOW Urine Appearance HAZY Urine pH 7.5 (5.0-8.0) Ur Specific [place] 1.020 (1.005-1.025) Urine Protein NEG (NEG-TRACE) MG/DL Urine Glucose (UA) NEG (NEG) MG/DL All other labs normal. CT of abdomen and pelvis with contrast 05/06/2020: IMPRESSION: Diffuse bulky and retroperitoneal adenopathy suspicious for leukemic or lymphoma. There is diffuse mesenteric haziness including fluid and fat stranding surrounding the appendix is now measures 1.2 cm in diameter. Also visualized is mild mural thickening involving the distal ileum which could represent inflammatory or infectious etiology. Small umbilical hernia containing fat and nodule within. Consider CT-guided lymph node biopsy for further evaluation. Assessment and Plan (1) Lymphoma: Qualifiers: Lymphoma site: intra-abdominal nodes Lymphoma type: non-Hodgkin Non-Hodgkin lymphoma type: unspecified type Qualified Code(s): C85.93 - Non-Hodgkin lymphoma, unspecified, intra-abdominal lymph nodes Status: Acute 74-year-old male patient presenting with abdominal pain found to have diffusely enlarged intra-abdominal including mesenteric lymph noted suggestive of lymphoma. Patient also has thickening of the appendix with a fluid-filled appendix which appears to be associated with the lymphadenopathy. Findings were felt to be consistent with lymphoma/leukemia. Patient feels much improved today with minimal abdominal pain. Patient may require further evaluation and treatment of the lymphadenopathy; I would be reluctant to treat the enlarged appendix. Agree with the oncology consultation. (2) Mass of appendix: Status: Acute
--- NOTE | 2020-05-06 16:22 | MHC.CM.PN ---
PATIENT DOES NOT WANT TO REMAIN FOR FURTHER TREATMENT/PROCEDURES/CONSULTS. HE IS STATING THAT HE WILL GO TO SEE HIS ONCOLOGIST. PATIENT IS LEAVING AGAINST MEDICAL ADVICE.
--- NOTE | 2020-05-06 16:23 | P.DS_ITS ---
DS: Providers Provider Date of admission: 05/06/20 00:49 Left AMA on 05/06/20 Primary care physician: Unknown Physician Consults: 05/06/20 02:36 Consult to Hematology / Oncology [place]ine [place] [facility] Reason for consultation: non hodking lymphoma Has provider been notified: No Consult to Physician Routine Consulting [place] [facility] [place] Reason for consultation: peiappendiceal mass Has provider been notified: Yes DS: Diagnosis Discharge Diagnosis (1) Lymphoma: Status: Acute (2) Mass of appendix: Status: Acute DS: Summary Hospital Course Hospital Course: This patient was admitted with abdominal pain and found to have Diffuse bulky and retroperitoneal adenopathy suspicious for leukemic or lymphoma. There is diffuse mesenteric haziness including fluid and fat stranding surrounding the appendix is now measures 1.2 cm in diameter. Also visualized is mild mural thickening involving the distal ileum which could represent inflammatory or infectious etiology. He was admitted for further work and evaluation including surgery and oncology evaluation. Unfortunately before he could be seen by Oncologist for suggestion on how to proceed with mass, he elected to leave citing he has his own oncologist Dr. Millan and prefer to have further evaluation by him. I could not convince to stay otherwise. He was wake, alert and oriented x 3 and had full command of his faculties. He understood that unless he get proper care and further evaluation and work up that he could jeorpardize his health and possibly even . I also advise to follow up with PCP in short period of time. RN Ely juárez was present during the conversation. Time Spent with Patient Time attestation: Total time spent providing and/or coordinating discharge services: Physical Exam Vital Signs: Vital Signs: Last Vital Signs Temp 98.3 F 05/06/20 07:22 Pulse 68 05/06/20 11:22 Resp 18 05/06/20 07:22 BP 163/63 H 05/06/20 11:22 Pulse Ox 96 05/06/20 07:22 Body Mass Index 30.8 DS: Data Data Completed and Pending Labs on day of discharge: 05/05/20 21:03 IV insert/maintain NOW 05/05/20 21:05 ECG 12 lead EKG Stat EKG Documentation DIRECTED CT abdomen pelvis wo con Stat 05/05/20 21:15 0.9 % Sodium Chloride [Ns] 1,000 ml IVCONT 999 mls/hr 05/05/20 21:32 Complete Blood Count Auto Diff Stat Comprehensive Met. Panel Stat Lactic Acid Stat Lipase Stat SLIDE REVIEW Stat 05/05/20 21:59 Partial Thromboplastin Time Stat Prothrombin Time INR Stat 05/05/20 22:15 0.9 % Sodium Chloride [Ns] 1,000 ml IVCONT 999 mls/hr 05/05/20 22:18 Piperacillin Sodium/Tazobactam [Zosyn] 3.375 gm 0.9 % Sodium Chloride [Ns] 50 ml IV ONCE 05/05/20 22:24 Piperacillin Sodium/Tazobactam [Zosyn] 3.375 gm IV .STK-MED ONE 05/05/20 23:11 SARS COV2 PCR INHOUSE Stat 05/05/20 23:33 ~Lactic Acid-LAB USE ONLY Stat 05/06/20 CT abdomen pelvis w con Stat 05/06/20 00:46 Transfer Order Routine 05/06/20 00:47 Code Status Routine 05/06/20 02:36 IV insert/maintain Q4HR Intake and Output QSHIFTE Vital Signs QSHIFT 05/06/20 08:00 0.9 % Sodium Chloride Flush [NS Flush] 3 ml IVFLUSH QSHIFT 05/06/20 09:00 Apixaban [Eliquis] 5 mg PO BID Losartan Potassium [Cozaar] 100 mg PO DAILY 05/06/20 11:35 Barium Sulfate Oral (Vanilla) [Readi-Cat 2 Smoothie (Vanilla)] 900 ml PO ONCE ONE iohexoL 350 MG/ML [Omnipaque 350 MG/ML] 85 ml IV ONCE ONE 05/06/20 21:00 Latanoprost 0.005 % Ophth Jennifer [Xalatan 0.005 % Oph Jennifer] 1 drop EYE-BOTH BEDTIME Laboratory Last Values WBC 8.5 X10*3/uL (4.8-10.8) 05/05/20 21:32 RBC 4.66 X10*6/uL (4.60-5.80) 05/05/20 21:32 Hgb 15.5 g/dl (14.0-18.0) 05/05/20 21:32 Hct 45.1 % (42-52) 05/05/20 21:32 MCV 96.8 fL (80-98) 05/05/20 21: MCH 33.3 pg (27.0-33.0) H 05/05/20 21:32 MCHC 34.4 g/dl (31.0-36.0) 05/05/20 21: RDW 12.9 % (11.0-16.0) 05/05/20 21:32 Plt Count 165 X10*3/uL (160-400) 05/05/20 21:32 MPV 9.4 fL (9.4-12.4) 05/05/20 21: Immature Gran % (Auto) 0.2 % (0.0-0.4) 05/05/20 21: Neut % (Auto) 89.7 % (45-73) H 05/05/20 21: Lymph % (Auto) 4.0 % (20-40) L 05/05/20 21:32 Young % (Auto) 5.8 % (2-11) 05/05/20 21: Eos % (Auto) 0.1 % (0-4) 05/05/20 21: Baso % (Auto) 0.2 % (0-2) 05/05/20 21:32 Lymph # (Auto) 0.3 X10*3/uL (1.2-4.9) L 05/05/20 21:32 Young # (Auto) 0.5 X10*3/uL (0.1-1.2) 05/05/20 21:32 Eos # (Auto) 0.0 X10*3/uL (0.0-0.4) 05/05/20 21:32 Baso # (Auto) 0.0 X10*3/uL (0.0-0.2) 05/05/20 21:32 Abs Immat Gran (auto) 0.02 X10*3/uL (0.00-0.03) 05/05/20 21: Absolute Neuts (auto) 7.6 X10*3/uL (2.0-8.3) 05/05/20 21: Absolute Nucleated RBC 0.000 X10*3/uL (0.0-0.012) 05/05/20 21: Nucleated RBC % (auto) 0.0 /100WBC (0.0-0.2) 05/05/20 21:32 Smear Tech's Comments VERIFIED 05/05/20 21:32 PT 18.0 SEC (10.8-13.0) H 05/05/20 21:59 INR 1.5 (0.9-1.1) H 05/05/20 21:59 APTT 32.1 SEC (24.1-38.0) 05/05/20 21:59 Sodium 141 mmol/L (135-145) 05/05/20 21:32 Potassium 3.9 mmol/l (3.3-5.1) 05/05/20 21:32 Chloride 99 mmol/L (96-108) 05/05/20 21:32 Carbon Dioxide 31 mmol/L (22-29) H 05/05/20 21:32 Anion Gap 15 (12-20) 05/05/20 21:32 BUN 21 mg/dL (9-16) H 05/05/20 21:32 Creatinine 0.83 mg/dL (0.5-1.4) 05/05/20 21:32 Estim Creat Clear Calc 79.3 05/05/20 21:32 Estimated GFR > 60 05/05/20 21:32 Random Glucose 115 mg/dL (60-115) 05/05/20 21:32 Lactic Acid 2.5 mmol/L (0.5-2.0) H* 05/05/20 21:32 Lactic Acid Fup @ 2Hr 1.8 mmol/L (0.5-2.0) 05/06/20 00:54 Calcium 9.4 mg/dL (8.4-10.2) 05/05/20 21:32 Total Bilirubin 1.7 mg/dL (0.0-1.0) H 05/05/20 21:32 AST 35 U/L (5-37) 05/05/20 21:32 ALT 36 U/L (0-40) 05/05/20 21:32 Alkaline Phosphatase 61 U/L (39-117) 05/05/20 21:32 Total Protein 7.5 g/dL (6.5-8.0) 05/05/20 21:32 Albumin 4.6 g/dL (3.5-5.0) 05/05/20 21:32 Lipase 11 U/L (8-78) 05/05/20 21:32 Urine Color YELLOW 05/05/20 21:59 Urine Appearance HAZY 05/05/20 21:59 Urine pH 7.5 (5.0-8.0) 05/05/20 21:59 Ur Specific [place] 1.020 (1.005-1.025) 05/05/20 21:59 Urine Protein NEG MG/DL (NEG-TRACE) 05/05/20 21:59 Urine Glucose (UA) NEG MG/DL (NEG) 05/05/20 21:59 Urine Ketones NEG MG/DL (NEG) 05/05/20 21:59 Urine Blood 1+ (NEG) H 05/05/20 21:59 Urine Nitrite NEG (NEG) 05/05/20 21:59 Ur Leukocyte Esterase NEG (NEG) 05/05/20 21:59 Urine RBC 10-14 /HPF (0) H 05/05/20 21:59 Urine WBC 1-4 /HPF (0-4) 05/05/20 21:59 Ur Squamous Epith Cells TRACE /LPF 05/05/20 21:59 Calcium Oxalate Crystal 1+ /LPF 05/05/20 21:59 Urine Bacteria TRACE /LPF 05/05/20 21:59 Coronavirus (PCR) NEGATIVE (Negative) 05/06/20 Unknown Preliminary micro results at discharge 05/05/20 21:59 Blood Culture - Preliminary Blood - Venous 05/05/20 21:32 Blood Culture - Preliminary Blood - Venous Discharge Plan Discharge Patient Disposition: Left Against Medical Advice Referrals: Physician,Unknown [Primary Care Provider] - Discharge Medications: No Action hydrochlorothiazide 25 mg tablet 25 mg PO DAILY Qty: 90 RF: 2 Eliquis 5 mg tablet 1 tab PO BID RF: 0 latanoprost 0.005 % drops 1 drp ophthalmic (eye) BEDTIME RF: 0 latanoprost drops 1 drp BEDTIME RF: 0 lorazepam 0.5 mg PO DAILY PRN (Reason: Anxiety) RF: 0 losartan 100 mg PO DAILY RF: 0 fluticasone propionate [Flonase] 50 mcg/actuation Brickeys,Suspension INTRANASAL RF: 0 Discharge Orders: Discharge Order (Routine); Ordered 05/06/20 Ordered By: Abhinav Ferguson Discharge Date/Time: 05/06/20 16:40 Care Plan Goals: To have work up of intraabdominal mass Health Concerns: intraabominal mass of unknown nature and concern of malignancy Plan of Treatment: You left against medical advise but advised to follow up with your primary care Doctor and your oncologist Dr. Millan as soon as possible
--- NOTE | 2020-05-06 16:38 | PC.NURSE ---
Pt spoke with Dr. Romano and Dr. Ferguson regarding not wanting to stay. BOth at bedside separate times to make pt aware of risks of leaving AMA> Pt wanted to see his own oncologist, pt to call office tomorrow. This RN further explained leaving AMA to pt and pt's . Pt still adament about leaving. Pt signed AMA form with 2 RN signature. IV removed, no issues.
--- NOTE | 2020-05-07 16:34 | P.DS_ITS ---
DS: Providers Provider Date of admission: 05/06/20 00:49 Primary care physician: Unknown Physician Consults: 05/06/20 02:36 Consult to Hematology / Oncology Routine Consulting Provider: [facility] [place] Oncology/Hematology Reason for consultation: non hodking lymphoma Has provider been notified: No Consult to Physician Routine Consulting Provider: [facility] [place] General Surgeons Reason for consultation: peiappendiceal mass Has provider been notified: Yes DS: Diagnosis Discharge Diagnosis (1) Lymphoma: Status: Acute (2) Mass of appendix: Status: Acute DS: Summary Hospital Course Hospital Course: This patient was admitted with abdominal pain and found to have Diffuse bulky and retroperitoneal adenopathy suspicious for leukemic or lymphoma. There is diffuse mesenteric haziness including fluid and fat stranding surrounding the appendix is now measures 1.2 cm in diameter. Also visualized is mild mural thickening involving the distal ileum which could represent inflammatory or infectious etiology. He was admitted for further work and evaluation including surgery and oncology evaluation. Unfortunately before he could be seen by Oncologist for suggestion on how to proceed with mass, he elected to leave citing he has his own oncologist Dr. Millan and prefer to have further evaluation by him. I could not convince to stay otherwise. He was wake, alert and oriented x 3 and had full command of his faculties. He understood that unless he get proper care and further evaluation and work up that he could jeorpardize his health and possibly even . I also advise to follow up with PCP in short period of time. RN Ely juárez was present during the conversation. Time Spent with Patient Time attestation: Total time spent providing and/or coordinating discharge services: Physical Exam Vital Signs: Vital Signs: Last Vital Signs Temp 98.3 F 05/06/20 07:22 Pulse 68 05/06/20 11:22 Resp 18 05/06/20 07:22 BP 163/63 H 05/06/20 11:22 Pulse Ox 96 05/06/20 07:22 Body Mass Index 30.8 DS: Data Data Completed and Pending Labs on day of discharge: 05/05/20 21:03 IV insert/maintain NOW 05/05/20 21:05 ECG 12 lead EKG Stat EKG Documentation DIRECTED CT abdomen pelvis wo con Stat 05/05/20 21:15 0.9 % Sodium Chloride [Ns] 1,000 ml IVCONT 999 mls/hr 05/05/20 21:32 Complete Blood Count Auto Diff Stat Comprehensive Met. Panel Stat Lactic Acid Stat Lipase Stat SLIDE REVIEW Stat 05/05/20 21:59 Partial Thromboplastin Time Stat Prothrombin Time INR Stat 05/05/20 22:15 0.9 % Sodium Chloride [Ns] 1,000 ml IVCONT 999 mls/hr 05/05/20 22:18 Piperacillin Sodium/Tazobactam [Zosyn] 3.375 gm 0.9 % Sodium Chloride [Ns] 50 ml IV ONCE 05/05/20 22:24 Piperacillin Sodium/Tazobactam [Zosyn] 3.375 gm IV .STK-MED ONE 05/05/20 23:11 SARS COV2 PCR INHOUSE Stat 05/05/20 23:33 ~Lactic Acid-LAB USE ONLY Stat 05/06/20 CT abdomen pelvis w con Stat 05/06/20 00:46 Transfer Order Routine 05/06/20 00:47 Code Status Routine 05/06/20 02:36 IV insert/maintain Q4HR Intake and Output QSHIFTE Vital Signs QSHIFT 05/06/20 08:00 0.9 % Sodium Chloride Flush [NS Flush] 3 ml IVFLUSH QSHIFT 05/06/20 09:00 Apixaban [Eliquis] 5 mg PO BID Losartan Potassium [Cozaar] 100 mg PO DAILY 05/06/20 11:35 Barium Sulfate Oral (Vanilla) [Readi-Cat 2 Smoothie (Vanilla)] 900 ml PO ONCE ONE iohexoL 350 MG/ML [Omnipaque 350 MG/ML] 85 ml IV ONCE ONE 05/06/20 21:00 Latanoprost 0.005 % Ophth Jennifer [Xalatan 0.005 % Oph Jennifer] 1 drop EYE-BOTH BEDTIME Laboratory Last Values WBC 8.5 X10*3/uL (4.8-10.8) 05/05/20 21:32 RBC 4.66 X10*6/uL (4.60-5.80) 05/05/20 21:32 Hgb 15.5 g/dl (14.0-18.0) 05/05/20 21:32 Hct 45.1 % (42-52) 05/05/20 21:32 MCV 96.8 fL (80-98) 05/05/20 21:32 MCH 33.3 pg (27.0-33.0) H 05/05/20 21: MCHC 34.4 g/dl (31.0-36.0) 05/05/20 21: RDW 12.9 % (11.0-16.0) 05/05/20 21:32 Plt Count 165 X10*3/uL (160-400) 05/05/20 21:32 MPV 9.4 fL (9.4-12.4) 05/05/20 21: Immature Gran % (Auto) 0.2 % (0.0-0.4) 05/05/20 21: Neut % (Auto) 89.7 % (45-73) H 05/05/20 21: Lymph % (Auto) 4.0 % (20-40) L 05/05/20 21:32 [place] % (Auto) 5.8 % (2-11) 05/05/20 21: Eos % (Auto) 0.1 % (0-4) 05/05/20 21: Baso % (Auto) 0.2 % (0-2) 05/05/20 21: Lymph # (Auto) 0.3 X10*3/uL (1.2-4.9) L 05/05/20 21: [place] # (Auto) 0.5 X10*3/uL (0.1-1.2) 05/05/20 21:32 Eos # (Auto) 0.0 X10*3/uL (0.0-0.4) 05/05/20 21: Baso # (Auto) 0.0 X10*3/uL (0.0-0.2) 05/05/20 21:32 Abs Immat Gran (auto) 0.02 X10*3/uL (0.00-0.03) 05/05/20 21: Absolute Neuts (auto) 7.6 X10*3/uL (2.0-8.3) 05/05/20 21: Absolute Nucleated RBC 0.000 X10*3/uL (0.0-0.012) 05/05/20 21: Nucleated RBC % (auto) 0.0 /100WBC (0.0-0.2) 11/04/20 21:32 Smear Tech's Comments VERIFIED 05/05/20 21:32 PT 18.0 SEC (10.8-13.0) H 05/05/20 21:59 INR 1.5 (0.9-1.1) H 05/05/20 21:59 APTT 32.1 SEC (24.1-38.0) 05/05/20 21:59 Sodium 141 mmol/L (135-145) 05/05/20 21:32 Potassium 3.9 mmol/l (3.3-5.1) 05/05/20 21:32 Chloride 99 mmol/L (96-108) 05/05/20 21:32 Carbon Dioxide 31 mmol/L (22-29) H 05/05/20 21:32 Anion Gap 15 (12-20) 05/05/20 21:32 BUN 21 mg/dL (9-16) H 05/05/20 21:32 Creatinine 0.83 mg/dL (0.5-1.4) 05/05/20 21:32 Estim Creat Clear Calc 79.3 05/05/20 21:32 Estimated GFR > 60 05/05/20 21:32 Random Glucose 115 mg/dL (60-115) 05/05/20 21:32 Lactic Acid 2.5 mmol/L (0.5-2.0) H* 05/05/20 21:32 Lactic Acid Fup @ 2Hr 1.8 mmol/L (0.5-2.0) 05/06/20 00:54 Calcium 9.4 mg/dL (8.4-10.2) 05/05/20 21:32 Total Bilirubin 1.7 mg/dL (0.0-1.0) H 05/05/20 21:32 AST 35 U/L (5-37) 05/05/20 21:32 ALT 36 U/L (0-40) 05/05/20 21:32 Alkaline Phosphatase 61 U/L (39-117) 05/05/20 21:32 Total Protein 7.5 g/dL (6.5-8.0) 05/05/20 21:32 Albumin 4.6 g/dL (3.5-5.0) 05/05/20 21:32 Lipase 11 U/L (8-78) 05/05/20 21:32 Urine Color YELLOW 05/05/20 21:59 Urine Appearance HAZY 05/05/20 21:59 Urine pH 7.5 (5.0-8.0) 05/05/20 21:59 Ur Specific [place] 1.020 (1.005-1.025) 05/05/20 21:59 Urine Protein NEG MG/DL (NEG-TRACE) 05/05/20 21:59 Urine Glucose (UA) NEG MG/DL (NEG) 05/05/20 21:59 Urine Ketones NEG MG/DL (NEG) 05/05/20 21:59 Urine Blood 1+ (NEG) H 05/05/20 21:59 Urine Nitrite NEG (NEG) 05/05/20 21:59 Ur Leukocyte Esterase NEG (NEG) 05/05/20 21:59 Urine RBC 10-14 /HPF (0) H 05/05/20 21:59 Urine WBC 1-4 /HPF (0-4) 05/05/20 21:59 Ur Squamous Epith Cells TRACE /LPF 05/05/20 21:59 Calcium Oxalate Crystal 1+ /LPF 05/05/20 21:59 Urine Bacteria TRACE /LPF 05/05/20 21:59 Coronavirus (PCR) NEGATIVE (Negative) 05/06/20 Unknown Preliminary micro results at discharge 05/05/20 21:59 Blood Culture - Preliminary Blood - Venous 05/05/20 21:32 Blood Culture - Preliminary Blood - Venous Discharge Plan Discharge Patient Disposition: Left Against Medical Advice Referrals: Physician,Unknown [Primary Care Provider] - Discharge Medications: No Action hydrochlorothiazide 25 mg tablet 25 mg PO DAILY Qty: 90 RF: 2 Eliquis 5 mg tablet 1 tab PO BID RF: 0 latanoprost 0.005 % drops 1 drp ophthalmic (eye) BEDTIME RF: 0 latanoprost drops 1 drp BEDTIME RF: 0 lorazepam 0.5 mg PO DAILY PRN (Reason: Anxiety) RF: 0 losartan 100 mg PO DAILY RF: 0 fluticasone propionate [Flonase] 50 mcg/actuation [place],Suspension INTRANASAL RF: 0 Discharge Orders: Discharge Order (Routine); Ordered 05/06/20 Ordered By: Abhinav Ferguson Discharge Date/Time: 05/06/20 16:40 Care Plan Goals: To have work up of intraabdominal mass Health Concerns: intraabominal mass of unknown nature and concern of malignancy Plan of Treatment: You left against medical advise but advised to follow up with your primary care Doctor and your oncologist Dr. Millan as soon as possible
== END 2020-05-06 16:40 | disposition left against medical advice (07) | DRG 842 ==
LOC: HO.ED 05-06 00:40 → HO.S3 05-06 01:30
PROVIDERS: Admitting Provider Internal Medicine; Emergency Provider Internal Medicine; Visit Provider Internal Medicine
DX: C85.93 Non-Hodgkin lymphoma, unspecified, intra-abdominal lymph nodes (principal); I10 Essential (primary) hypertension; I48.91 Unspecified atrial fibrillation; Z87.891 Personal history of nicotine dependence; Z20.828 Contact with and (suspected) exposure to other viral communicable diseases; Z79.01 Long term (current) use of anticoagulants; Z79.899 Other long term (current) drug therapy
CPT/HCPCS: 36415; 74176; 74177; 80053; 81001; 83605; 83690; 85025; 85610; 85730; 87040; 87076; 87185; 93005; 96361; 96365; 99285; J2543; Q9967; U0003

== ENCOUNTER 2020-05-07 07:39 | Inpatient (IN) | payer MEDICARE, OTHER, SELFPAY ==
[2020-05-07] VITALS (7 sets, daily range): BP systolic 109–188; BP diastolic 62–82; PULSE 72–98; RESP 12–22; TEMP 36.8–37.3; O2SAT 96–100; BMI 30.9
--- NOTE | 2020-05-07 07:42 | ED.WEAKNESS ---
HPI - Weakness General Chief complaint: Weakness Stated complaint: weakness Time Seen by Provider: 05/07/20 07:40 Source: patient, EMS and old records reviewed Mode of arrival: EMS Limitations: no limitations History of Present Illness HPI Narrative: admitted on 05/[address] scan of the abdomen revealed diffuse mesenteric lymphadenopathy with thickening of the appendix apparent dilation of the appendix felt to be possibly due to lymphoma /leukemia was seen by Medicine and Gen Surgery - DC yesterday given pain improved and referral to oncology MD Complaint: generalized weakness Onset (ago): day(s) (1) Duration: constant Location: generalized Migration: none Severity: moderate Quality: dull Relieving factors: none Exacerbating factors: movement Context: recent illness Associated symptoms: other (tried to get out of bed and just slipped down the side of the bed, no injury, did not strike head, was unable to get up, also c/o diffuse diarrhea since last night) Related Data Home Medications Medication Instructions Recorded Confirmed Flonase 1 spray INTRANASAL DAILY PRN 05/05/20 05/06/20 apixaban [Eliquis] 1 tab PO BID 05/05/20 05/05/20 latanoprost 1 drp INTRAOCULAR DAILY 05/05/20 05/06/20 latanoprost 1 drp OPHTHALMIC (EYE) BEDTIME 05/05/20 05/06/20 lorazepam 0.5 mg PO DAILY PRN 05/05/20 05/06/20 losartan 100 mg PO DAILY 05/05/20 05/06/20 turmeric 1,000 mg PO DAILY 05/05/20 05/06/20 Previous Rx's Medication Instructions Recorded hydrochlorothiazide 25 mg tablet 25 mg PO DAILY #90 tab 04/02/20 Allergies Allergy/AdvReac Type Severity Reaction Status Date / Time No Known Allergies Allergy Unverified 03/18/20 14:39 [No Known Allergies*] Review of Systems Review of Systems: Constitutional : No Weight loss, No Fever, No Chills ENT/Mouth : No sore throat, No Rhinorrhea Eyes: No Swelling, No Redness Cardiovascular : No Chest Pain, No SOB, NoEdema Respiratory : No Cough, No Sputum, No Wheezing Gastrointestinal : no Nausea, noVomiting, positive Diarrhea, positive abdominal Pain, No Hematochezia, No Melena Genitourinary : No Dysuria, No Urinary Frequency, No Hematuria, No Urgency Musculoskeletal : No joint pain, No Myalgias, No Joint Swelling Skin : No Skin Lesions, No rash Neuro : pos diffuse Weakness, No Numbness, No Dizziness, No Headache Psych : No Anxiety/Panic, No Depression Heme/Lymph: No Bruising, No Lymphadenopathy Endocrine : No Polyuria, No Polydipsia All other systems reviewed and are negative. [facility] Past Medical History Attestation statement: The following information was validated with the patient. Medical History (Updated 05/07/20 @ 10:34 by Rosemary Zuniga DO) Afib Hypertension Lymphoma Mass of appendix Social History Social History Household Members: None Housing: Apartment Alcohol intake: never Smoking Status: Former smoker Smoked in Last 30 Days: No Use of substances other than those prescribed or required for medical reasons: No Advance Directives: Yes Advance Directives on File: Yes Advance Directives Date on File: 05/06/20 service: No Current occupational status: retired Physical Exam Vital Signs: Vital Signs: Last Vital Signs Temp 98.9 F 05/07/20 07:43 Pulse 98 05/07/20 10:15 Resp 18 05/07/20 10:15 BP 109/72 05/07/20 10:15 Pulse Ox 100 05/07/20 10:15 Body Mass Index 30.9 Appearance: Alert. Oriented X3. No acute distress. Eyes: Pupils equal, round and reactive to light. ENT: Pharynx normal. Neck: Normal inspection. Neck supple. CVS: Normal heart rate and rhythm. Pulses normal. Respiratory: No respiratory distress. Breath sounds normal. Abdomen: Soft and nontender. Skin: Skin warm and dry. Normal skin color. Normal skin turgor. Extremities: No lower extremity edema. No calf ttp Neuro: Oriented X 3. No motor deficit. No sensory deficit. Course Course Course Narrative: will CT scan patient given increased WBC for any signs of actual appendiceal infection call from [place] - 05/05 08/03 cultures GNR will start on cefepime and admit to hospitalist MDM - Weakness MDM Narrative Medical decision making narrative: 74 yo male with hx of afib, HTN, recent CT scan on 05/05 for pain showing lymphadenopathy as well as appedix dilation felt that these changes were related to lymphoma at this time will need labs, EKG, denies GIB symptoms, dispo per results and findings Lab Data Result diagrams: 05/07/20 08:18 05/07/20 08:18 Labs: Lab Results 05/07/20 05/07/20 05/07/20 Range/Units 08:18 08:18 08:18 WBC 11.6 H (4.8-10.8) X10*3/uL RBC 4.38 L (4.60-5.80) X10*6/uL Hgb 14.5 (14.0-18.0) g/dl Hct 42.6 (42-52) % MCV 97.3 (80-98) fL MCH 33.1 H (27.0-33.0) pg MCHC 34.0 (31.0-36.0) g/dl RDW 12.9 (11.0-16.0) % Plt Count 127 L (160-400) X10*3/uL MPV 9.2 L (9.4-12.4) fL Immature Gran % (Auto) 0.8 H (0.0-0.4) % Neut % (Auto) 94.1 H (45-73) % Lymph % (Auto) 0.9 L (20-40) % [place] % (Auto) 4.0 (2-11) % Eos % (Auto) 0.0 (0-4) % Baso % (Auto) 0.2 (0-2) % Lymph # (Auto) 0.1 L (1.2-4.9) X10*3/uL [place]shaw # (Auto) 0.5 (0.1-1.2) X10*3/uL Eos # (Auto) 0.0 (0.0-0.4) X10*3/uL Baso # (Auto) 0.0 (0.0-0.2) X10*3/uL Abs Immat Gran (auto) 0.09 H (0.00-0.03) X10*3/uL Absolute Neuts (auto) 10.9 H (2.0-8.3) X10*3/uL Absolute Nucleated RBC 0.000 (0.0-0.012) X10*3/uL Nucleated RBC % (auto) 0.0 (0.0-0.2) /100WBC Smear Tech's Comments VERIFIED PT 23.0 H D (10.8-13.0) SEC INR 1.9 H (0.9-1.1) APTT 31.4 (24.1-38.0) SEC Sodium 137 (135-145) mmol/L Potassium 3.8 (3.3-5.1) mmol/l Chloride 99 (96-108) mmol/L Carbon Dioxide 26 (22-29) mmol/L Anion Gap 16 (12-20) BUN 21 H (9-16) mg/dL Creatinine 0.78 (0.5-1.4) mg/dL Estim Creat Clear Calc 84.6 Estimated GFR > 60 Random Glucose 123 H (60-115) mg/dL Lactic Acid (0.5-2.0) mmol/L Calcium 8.4 D (8.4-10.2) mg/dL Magnesium 2.0 (1.6-2.6) mg/dL Total Bilirubin 1.9 H (0.0-1.0) mg/dL Direct Bilirubin 0.7 H (0.0-0.5) mg/dL AST 43 H (5-37) U/L ALT 32 (0-40) U/L Alkaline Phosphatase 58 (39-117) U/L Troponin I High Sens (<3.5-35.0) ng/L Total Protein 7.1 (6.5-8.0) g/dL Albumin 4.1 (3.5-5.0) g/dL Lipase 8 (8-78) U/L 05/07/20 05/07/20 Range/Units 08:18 08:18 WBC (4.8-10.8) X10*3/uL RBC (4.60-5.80) X10*6/uL Hgb (14.0-18.0) g/dl Hct (42-52) % MCV (80-98) fL MCH (27.0-33.0) pg MCHC (31.0-36.0) g/dl RDW (11.0-16.0) % Plt Count (160-400) X10*3/uL MPV (9.4-12.4) fL Immature Gran % (Auto) (0.0-0.4) % Neut % (Auto) (45-73) % Lymph % (Auto) (20-40) % [place] % (Auto) (2-11) % Eos % (Auto) (0-4) % Baso % (Auto) (0-2) % Lymph # (Auto) (1.2-4.9) X10*3/uL [place] # (Auto) (0.1-1.2) X10*3/uL Eos # (Auto) (0.0-0.4) X10*3/uL Baso # (Auto) (0.0-0.2) X10*3/uL Abs Immat Gran (auto) (0.00-0.03) X10*3/uL Absolute Neuts (auto) (2.0-8.3) X10*3/uL Absolute Nucleated RBC (0.0-0.012) X10*3/uL Nucleated RBC % (auto) (0.0-0.2) /100WBC Smear Tech's Comments PT (10.8-13.0) SEC INR (0.9-1.1) APTT (24.1-38.0) SEC Sodium (135-145) mmol/L Potassium (3.3-5.1) mmol/l Chloride (96-108) mmol/L Carbon Dioxide (22-29) mmol/L Anion Gap (12-20) BUN (9-16) mg/dL Creatinine (0.5-1.4) mg/dL Estim Creat Clear Calc Estimated GFR Random Glucose (60-115) mg/dL Lactic Acid 2.0 (0.5-2.0) mmol/L Calcium (8.4-10.2) mg/dL Magnesium (1.6-2.6) mg/dL Total Bilirubin (0.0-1.0) mg/dL Direct Bilirubin (0.0-0.5) mg/dL AST (5-37) U/L ALT (0-40) U/L Alkaline Phosphatase (39-117) U/L Troponin I High Sens 51.0 H (<3.5-35.0) ng/L Total Protein (6.5-8.0) g/dL Albumin (3.5-5.0) g/dL Lipase (8-78) U/L ECG Data Attestation: I personally reviewed and interpreted this ECG as follows: ECG interpretation date: 05/07/20 ECG interpretation time: 08:08 Interpretation: Rate: 74 Rhythm: narrow regular [place]: left Normal QRS complex. ST T wave : nonspecific qTC: normal prior studies: artifact noted The study has been interpreted contemporaneously by me. . Discharge Plan Discharge Clinical Impression: Bacteremia Patient Disposition: Admitted As Inpatient Prescriptions: No Action hydrochlorothiazide 25 mg tablet 25 mg PO DAILY Qty: 90 RF: 2 Eliquis 5 mg tablet 1 tab PO BID RF: 0 Flonase 1 spray intranasal DAILY PRN (Reason: Allergy Symptoms) RF: 0 latanoprost 0.005 % drops 1 drp ophthalmic (eye) BEDTIME RF: 0 latanoprost drops 1 drp intraocular DAILY RF: 0 lorazepam 0.5 mg PO DAILY PRN (Reason: Anxiety) RF: 0 losartan 100 mg PO DAILY RF: 0 turmeric 1,000 mg PO DAILY RF: 0
--- NOTE | 2020-05-07 07:49 | ECG_ITS ---
Test Reason : WEAKNESS Blood Pressure : / mmHG Vent. Rate : 074 BPM Atrial Rate : 300 BPM P-R Int : 000 ms QRS Dur : 082 ms QT Int : 364 ms P-R-T Axes : 000 -28 009 degrees QTc Int : 404 ms Poor data quality Normal sinus rhythm Nonspecific T wave abnormality Left axis deviation Abnormal ECG When compared with ECG of 05-MAY-2020 22:05, Normal sinus rhythm has replaced Rhythm shows atrial flutter with variable block Premature ventricular complexes is no longer Present Referred By: Rosemary Zuniga Electronically Signed By:KAYLEN DOHERTY MD
--- NOTE | 2020-05-07 07:50 | XR_ITS ---
EXAMINATION: XR CHEST CLINICAL INFORMATION: Weakness COMPARISON: Previous chest x-ray January 2018 TECHNIQUE: Frontal view of the chest was obtained. FINDINGS: The cardiac and mediastinal contours are stable. The lung volumes are low. The lungs are clear. There is no pleural effusion or pneumothorax. There are degenerative changes of the spine and left shoulder. XR/XR chest 1V IMPRESSION: Low lung volumes. No evidence for acute disease in the chest.
[2020-05-07 08:33] LABS: Basophils Percent Auto 0.2 % (0-2); Hematocrit 42.6 % (42-52); Hemoglobin 14.5 g/dl (14.0-18.0); Imm Gran Abs Auto 0.09 X10*3/uL (0.00-0.03); Imm Gran Pct Auto 0.8 % (0.0-0.4); Lymphocytes Absolute Auto 0.1 X10*3/uL (1.2-4.9); Lymphocytes Percent Auto 0.9 % (20-40); MANUAL DIFF FLAG SCAN; Mean Corpuscular Hemoglobin 33.1 pg (27.0-33.0); Mean Corpuscular Volume 97.3 fL (80-98); Monocytes Absolute Auto 0.5 X10*3/uL (0.1-1.2); Neutrophils Absolute Auto 10.9 X10*3/uL (2.0-8.3); Neutrophils Percent Auto 94.1 % (45-73); Platelet Count 127 X10*3/uL (160-400); Red Blood Count 4.38 X10*6/uL (4.60-5.80); Red Cell Distribution Width 12.9 % (11.0-16.0); SCAN SMEAR FLAG 1; White Blood Count 11.6 X10*3/uL (4.8-10.8)
[2020-05-07 08:38] LABS: Mean Platelet Volume 9.2 fL (9.4-12.4)
--- NOTE | 2020-05-07 08:40 | CT_ITS ---
EXAMINATION: CT ABDOMEN AND PELVIS WITH CONTRAST CLINICAL INFORMATION: Worsening weakness/diarrhea and elevated white blood cell count. Evaluate appendix. COMPARISON: CT abdomen and pelvis 05/06/2020 and 05/05/2020. TECHNIQUE: Multidetector volumetric images were obtained from the superior aspect of the liver through the pubic symphysis following administration 85 mL of Omnipaque 350 intravenous contrast. Sagittal and coronal reformatted images were obtained on the technologist's workstation. Oral contrast: No This CT examination was performed using dose optimization techniques as appropriate, variously including the following: *Automated exposure control *Adjustment of mA and/or kV according to patient size (this includes techniques or standardized protocols for targeted exams where dose is matched to indication/reason for exam; i.e. extremities or head) *Use of iterative reconstruction technique DLP: 718 mGy-cm FINDINGS: LUNG BASES: There is bibasilar dependent atelectasis. The heart size is normal. LIVER, GALLBLADDER, AND BILIARY TREE: The liver is normal in size, shape, and attenuation. There are punctate hypodense, nonenhancing lesions in the caudate lobe measuring 8 mm and a right hepatic lobe lesion measuring 6 mm. The gallbladder has been surgically removed. PANCREAS: Unremarkable. SPLEEN: Unremarkable. ADRENAL GLANDS: Unremarkable. KIDNEYS AND URETERS: The kidneys are normal in size, shape, and attenuation. No hydronephrosis, hydroureter, or calculi are seen. No perinephric stranding. BLADDER: Unremarkable. GASTROINTESTINAL TRACT: There is diffuse colonic diverticulosis with mild mural thickening, prominent pericolic fat stranding suspicious for diverticulitis. There is a periileal fluid collection in the right lower quadrant with mild mural thickening of the terminal ileum similar to the previous study, likely enteritis or terminal ileitis. This results in mild proximal dilation of the jejunal loops. The stomach is nondistended. The appendix is not seen. ABDOMINAL WALL: Small umbilical hernia containing fat and a small nodule, similar to the last 2 exams. LYMPH NODES: There are diffuse mesenteric, retroperitoneal large lymph nodes. There are small retrocrural lymph nodes visualized as well. VASCULAR: Mild atherosclerotic changes of the abdominal aorta without aneurysmal dilatation. PELVIC VISCERA: The prostate gland is enlarged with peripheral prostate gland calcifications. OSSEOUS STRUCTURES: There are degenerative disc changes throughout the lumbar spine as described previously. There is mild spondylosis. No lytic process. CT/CT abdomen pelvis w con IMPRESSION: Abnormal mesenteric, retroperitoneal and retrocrural lymphadenopathy. Differential diagnosis may include infectious or inflammatory etiology. Diffuse sigmoid diverticulosis and mild mural thickening, slightly more obvious than the last exam, which could represent diverticulitis. No free air or free fluid is seen. There is a larger mesenteric haziness and fat seen extending from the right lower quadrant to the mid abdomen including thickening of the terminal ileum better seen on the previous study. This could represent enteritis. There is mild proximal small bowel prominence without significant distention. The composite findings of small bowel, colon, and mesenteric lymph nodes, mesenteric haziness likely represent inflammatory or infectious etiology such as Crohn's, enterocolitis, diverticulitis, lymphoma or carcinoid syndrome. Recommend clinical correlation. Results were discussed with Dr. Rosemary Zuniga in the ER at 10:25 AM.
[2020-05-07 08:47] LABS: INTERNATIONAL NORM RATIO 1.9 (0.9-1.1)
[2020-05-07 08:50] LABS: Partial Thromboplastin Time 31.4 SEC (24.1-38.0)
[2020-05-07 08:54] LABS: SLIDE REVIEW VERIFIED
[2020-05-07 09:10] LABS: Alanine Aminotransferase 32 U/L (0-40); Albumin Level 4.1 g/dL (3.5-5.0); Alkaline Phosphatase 58 U/L (39-117); Anion Gap 16 (12-20); Aspartate Amino Transferase 43 U/L (5-37); Bilirubin Direct 0.7 mg/dL (0.0-0.5); Bilirubin Total 1.9 mg/dL (0.0-1.0); Blood Urea Nitrogen 21 mg/dL (9-16); Calcium 8.4 mg/dL (8.4-10.2); Carbon Dioxide 26 mmol/L (22-29); Chloride 99 mmol/L (96-108); Creatinine Clr Calc Pharmacy 84.6; Estimated Glomerular Filt Rate > 60; Glucose Random 123 mg/dL (60-115); Lipase 8 U/L (8-78); Potassium 3.8 mmol/l (3.3-5.1); Sodium 137 mmol/L (135-145); Total Protein 7.1 g/dL (6.5-8.0)
[2020-05-07] MEDS: iohexoL 350 MG/ML 100 ML INFUS..BTL IV (09:59)
[2020-05-07] MEDS: cefEPime HCl 1 GM in 0.9 % Sodium Chloride 50 ML IV ×2 (10:56→21:36)
--- NOTE | 2020-05-07 11:13 | P.HPIM_ITS ---
History of Present Illness Date of Service: 05/07/20 Chief Complaint: lethargy, abdominal pain a 74 years old male with PMH of non-Hodgkin lymphoma, AFib on Eliquis, HTN among others who presented to the hospital complaining of increased weakness and abdominal pain. The patient was admitted yesterday to the hospital for the same problem but left AMA as he felt very overwhelmed and concerned. He came back to the hospital today complaining of increased weakness and a fall at home which was mechanical. He did not injure his head. Denies any fever, chills, chest pain, difficulty breathing or change in urine habits. A repeated CT scan of the abdomen showing periappendicular mass with lymph nodules. blood cultures reported to be growing gram-negative rods in 2 bottles Admitted for further evaluation treatment Review of Systems Review of Systems: No fever, chills , reports significant weakness No chest pain, palpitation No shortness of breath or coughing Mild generalized abdominal pain, nonausea or vomiting, no change in bowel habit No urinary symptoms No any rash or wounds PMFSH Medical History (Updated 05/07/20 @ 11:22 by Garth Ortiz MD) Afib Hypertension Lymphoma Mass of appendix Social History Household Members: None Housing: Apartment Alcohol intake: never Smoking Status: Former smoker Smoked in Last 30 Days: No Use of substances other than those prescribed or required for medical reasons: No Advance Directives: Yes Advance Directives on File: Yes Advance Directives Date on File: 05/06/20 service: No Current occupational status: retired Meds Allergies Allergy/AdvReac Type Severity Reaction Status Date / Time No Known Allergies Allergy Unverified 03/18/20 14:39 [No Known Allergies*] Home Medications Medication Instructions Recorded Confirmed Type apixaban [Eliquis] 1 tab PO BID 05/05/20 05/07/20 History latanoprost 1 drp BEDTIME 05/05/20 05/07/20 History latanoprost 1 drp OPHTHALMIC (EYE) BEDTIME 05/05/20 05/07/20 History lorazepam 0.5 mg PO DAILY PRN 05/05/20 05/07/20 History losartan 100 mg PO DAILY 05/05/20 05/07/20 History fluticasone propionate [Flonase] INTRANASAL 05/07/20 History Physical Exam Vital Signs and Narrative: Vital Signs: Last Vital Signs Temp 98.9 F 05/07/20 07:43 Pulse 98 05/07/20 10:15 Resp 18 05/07/20 10:15 BP 109/72 05/07/20 10:15 Pulse Ox 100 05/07/20 10:15 Body Mass Index 30.9 Constitutional : Alert, oriented, not in distress Neck : Normal inspection, Supple Cardiovascular : RRR, S1 S2, no lower extremity edema Respiratory : Good bilateral air entry, no crackles, wheezes or rhonchi Gastrointestinal: soft, lax, Normal bowel sounds, mild generalized tenderness more noted in the right lower quadrant, no surgical signs Skin : Warm/Dry, No rash Neurological : Alert & oriented x3, No focal deficit Results Labs Labs: Laboratory Tests 05/07/20 05/07/20 05/07/20 08:18 08:18 08:18 WBC 11.6 H RBC 4.38 L Hgb 14.5 Hct 42.6 MCV 97.3 MCH 33.1 H MCHC 34.0 RDW 12.9 Plt Count 127 L MPV 9.2 L Immature Gran % (Auto) 0.8 H Neut % (Auto) 94.1 H Lymph % (Auto) 0.9 L [place] % (Auto) 4.0 Eos % (Auto) 0.0 Baso % (Auto) 0.2 Lymph # (Auto) 0.1 L [place] # (Auto) 0.5 Eos # (Auto) 0.0 Baso # (Auto) 0.0 Abs Immat Gran (auto) 0.09 H Absolute Neuts (auto) 10.9 H Absolute Nucleated RBC 0.000 Nucleated RBC % (auto) 0.0 Smear Tech's Comments VERIFIED PT 23.0 H D INR 1.9 H APTT 31.4 Sodium 137 Potassium 3.8 Chloride 99 Carbon Dioxide 26 Anion Gap 16 BUN 21 H Creatinine 0.78 Estim Creat Clear Calc 84.6 Estimated GFR > 60 Random Glucose 123 H Lactic Acid Calcium 8.4 D Magnesium 2.0 Total Bilirubin 1.9 H Direct Bilirubin 0.7 H AST 43 H ALT 32 Alkaline Phosphatase 58 Troponin I High Sens Total Protein 7.1 Albumin 4.1 Lipase 8 05/07/20 05/07/20 08:18 08:18 WBC RBC Hgb Hct MCV MCH MCHC RDW Plt Count MPV Immature Gran % (Auto) Neut % (Auto) Lymph % (Auto) [place] % (Auto) Eos % (Auto) Baso % (Auto) Lymph # (Auto) [place] # (Auto) Eos # (Auto) Baso # (Auto) Abs Immat Gran (auto) Absolute Neuts (auto) Absolute Nucleated RBC Nucleated RBC % (auto) Smear Tech's Comments PT INR APTT Sodium Potassium Chloride Carbon Dioxide Anion Gap BUN Creatinine Estim Creat Clear Calc Estimated GFR Random Glucose Lactic Acid 2.0 Calcium Magnesium Total Bilirubin Direct Bilirubin AST ALT Alkaline Phosphatase Troponin I High Sens 51.0 H Total Protein Albumin Lipase Imaging Radiologist's Impressions: Impressions Chest X-Ray 05/07/20 07:50 IMPRESSION: Low lung volumes. No evidence for acute disease in the chest. Assessment and Plan (1) Bacteremia: Status: Acute (2) Afib: Status: Acute (3) Mass of appendix: Status: Acute (4) Lymphoma: Qualifiers: Lymphoma site: intra-abdominal nodes Lymphoma type: non-Hodgkin Non- Hodgkin lymphoma type: unspecified type Qualified Code(s): C85.93 - Non-Hodgkin lymphoma, unspecified, intra-abdominal lymph nodes Status: Acute (5) Hypertension: Status: Acute a 74 years old male with PMH of non-Hodgkin lymphoma, AFib on Eliquis, HTN among others who presented to the hospital complaining of increased weakness and abdominal pain. abdominal pain Suspected to be secondary to pancreatic mass concerning for lymphoma Pain medication is needed To get Oncology team for evaluation Consider biopsy the, might need to Hold anticoagulation bacteremia Two 2 bottles growing gram-negative rods possible source from the appendical her mass repeat blood cultures To give cefepime for now Physical deconditioning Fall Likely secondary to worsening illness, bacteremia To get physical therapy evaluation Atrial fibrillation Continue apixaban Hypertension continue losartan DVT PPX Eliquis
[2020-05-07 11:49] LABS: Glucose Urine UA NEG (NEG); Leukocyte Esterase Urine NEG (NEG); Nitrite Urine NEG (NEG); Specific Gravity - Urine <= 1.005 (1.005-1.025); Urine Blood 3+ (NEG); Urine Ketones 40 MG/DL (NEG); Urine Protein 2+ MG/DL (NEG-TRACE)
[2020-05-07 11:50] LABS: Appearance Urine HAZY; Color Urine YELLOW
[2020-05-07 11:54] LABS: WBC Urine 0 /HPF (0-4)
[2020-05-07 11:56] LABS: B Type Natriuretic Peptide 177 pg/mL (<100)
[2020-05-07 12:03] LABS: UACC CULT NO
[2020-05-07 12:22] LABS: SARS COV2 PCR INHOUSE NEGATIVE (Negative)
--- NOTE | 2020-05-07 12:38 | PC.NURSE ---
called to [facility] [place] for report
--- NOTE | 2020-05-07 12:56 | PM.HEMONCCN ---
Subjective - Subjective Primary Care Provider: Jeff Arreola MD HPI - Consult Narrative Reason for consult: concern for lymphoma. Narrative: Sean Hilton JR is a pleasant 74 year old gentleman, who was admitted here on 05/[address] scan of the abdomen revealed: Diffuse mesenteric lymphadenopathy with thickening of the appendix, apparent dilation of the appendix, felt to be possibly due to lymphoma /leukemia. He was seen by Medicine and Gen Surgery. He signed out AMA yesterday, given pain improved, even before seeing me. He presented to the ER again, today. He tried to get out of bed and just slipped down the side of the bed. No injury, did not strike head, was unable to get up. He complains of abdominal pain. Onset (ago): day(s) (1) Duration: constant Location: generalized Migration: none Severity: moderate Quality: dull Relieving factors: none Exacerbating factors: movement Context: recent illness Also c/o diffuse diarrhea since last night. Has had generalized weakness. Review of Systems - Constitutional Reports body ache(s), Reports fatigue, Reports lack of energy, Reports malaise, Reports weight loss, Denies fever(s) - Eyes Denies bulging eyes - Cardiovascular Denies chest pain at rest - Respiratory Denies chest congestion - Gastrointestinal Reports abdominal pain, Reports change in bowel habits - Musculoskeletal Reports back pain - Integumentary/Breasts Skin/Breast: Denies bleeding lesions - Neurologic Reports system reviewed and no additional complaints, except as documented - Psychiatric Reports anxiety - Endocrine Denies excessive sweating - Hematologic/Lymphatic Denies easy bruising - Allergic/Immunologic Denies GI upset with certain foods PMFSH Medical History: Medical History (Last Reviewed 05/10/20 @ 08:08 by Niesha Hernandez, PT) Afib Hypertension Lymphoma Mass of appendix Home Medications and Allergies Current Medications: Current Medications Generic Name Dose Route Start Last Admin Trade Name Freq PRN Reason Stop Dose Admin Pharmacy Consult 1 each 05/07/20 10:32 Consult Rx Perform Med Rec MISCELLANE ONCE PRN Consult order Home Medications Medication Instructions Recorded Confirmed Type Eliquis 1 tab PO BID 05/05/20 05/07/20 History latanoprost 1 drp BEDTIME 05/05/20 05/07/20 History latanoprost 1 drp OPHTHALMIC (EYE) BEDTIME 05/05/20 05/07/20 History lorazepam 0.5 mg PO DAILY PRN 05/05/20 05/07/20 History losartan 100 mg PO DAILY 05/05/20 05/07/20 History fluticasone propionate INTRANASAL 05/07/20 History Allergies Allergy/AdvReac Type Severity Reaction Status Date / Time No Known Allergies Allergy Unverified 03/18/20 14:39 [No Known Allergies*] Physical Exam Vital signs: Vital Signs Temp 98.3 F 05/07/20 12:39 Pulse 78 05/07/20 12:39 Resp 12 05/07/20 12:39 BP 162/62 H 05/07/20 12:39 Pulse Ox 96 05/07/20 12:39 Intake & Output 05/06/20 05/07/20 05/07/20 18:59 06:59 18:59 Intake Total 50 / 50 Balance 50 / 50 Intake: Intake, IV Amount 50 / 50 cefEPime HCl 1 gm In 0.9 % 50 / 50 Sodium Chloride 50 ml @ 100 mls /hr IV ONCE ONE Rx#:[id number] Other: Weight 87.09 kg Weight 87.09 kg - Constitutional Present: mild distress - Routine HEENT Exam Head: Present: normal inspection ENT: Present: mucous membranes moist - Routine Neck Exam Present: supple - Routine Respiratory Exam Present: CTAB - Routine Cardiovascular Exam Cardiovascular: Present: RRR, S1, S2 - Routine Abdominal Exam Present: soft, nontender - Routine Rectal Exam Patient deferred: digital exam - Routine Extremities Exam Present: nontender - Routine Skin Exam Present: intact - Routine Neurological Exam Present: alert, oriented X3 - Detailed Neurological Exam: Coma Scale Eye Opening: Spontaneous (4) Verbal Response: Oriented (5) Motor Response: Obeys commands (6) [place] Coma Scale Total: 15 - Routine Psychiatric Exam Present: depressed Hem/Onc Consult Result - Labs CBC & Chem 7: 05/11/20 05:43 05/11/20 05:43 Labs: Short CBC 05/07/20 Range/Units 08:18 WBC 11.6 H (4.8-10.8) X10*3/uL Hgb 14.5 (14.0-18.0) g/dl Hct 42.6 (42-52) % Plt Count 127 L (160-400) X10*3/uL BMP 05/07/20 08:18 Sodium 137 Potassium 3.8 Chloride 99 Carbon Dioxide 26 BUN 21 H Creatinine 0.78 Calcium 8.4 D Liver Function 05/07/20 Range/Units 08:18 Total Bilirubin 1.9 H (0.0-1.0) mg/dL Direct Bilirubin 0.7 H (0.0-0.5) mg/dL AST 43 H (5-37) U/L ALT 32 (0-40) U/L Alkaline Phosphatase 58 (39-117) U/L Albumin 4.1 (3.5-5.0) g/dL Urine 05/07/20 Range/Units 11:23 Urine Color YELLOW Urine Appearance HAZY Urine pH 7.0 (5.0-8.0) Ur Specific [place] <= 1.005 (1.005-1.025) Urine Protein 2+ H (NEG-TRACE) MG/DL Urine Glucose (UA) NEG (NEG) MG/DL Assessment and Plan (1) Lymphoma Status: Acute A 74 years old male with PMH of non-Hodgkin lymphoma, AFib on Eliquis, HTN, presented to the hospital, complaining of increased weakness and abdominal pain. He has been noted to have mesenteric thickening especially around the appendix and retroperitoneal adenopathy. DIFFERENTIAL DIAGNOSIS: 1. Lymphoma site: intra-abdominal nodes Lymphoma type: non-Hodgkin Non-Hodgkin lymphoma type: unspecified type Qualified Code(s): C85.93 - Non-Hodgkin lymphoma, unspecified, intra-abdominal lymph nodes Status: Acute 2. Carcinoma, involving appendix/colon. In addition, the patient has Bacteremia: Two 2 bottles growing gram-negative rods. Possible source from the appendiceal mass. He is on cefepime. To repeat blood cultures. DVT PPX Eliquis. PLAN: l reviewed the Cat scan images with the radiologist. There is retroperitoneal adenopathy and thickening of the omentum, especially around the appendix. The plan is to proceed with a biopsy of one of the retroperitoneal nodes. Will hold the Eliquis over the weekend. Further plan will be made based upon the exact finding and pathology. in the meantime I will check tumor markers including LDH and a CEA: 6.2. Thank you, cc: (2) Mass of appendix Status: Acute
--- NOTE | 2020-05-07 13:59 | PC.NURSE ---
report given to kathy on c
[2020-05-07] MEDS: 0.9 % Sodium Chloride Flush 3 ML SYRINGE IVFLUSH (15:24)
[2020-05-07] MEDS: 0.9 % Sodium Chloride 1,000 ML 60 ML IVCONT (15:24)
[2020-05-07] MEDS: Losartan Potassium 50 MG TABLET PO (16:36)
[2020-05-07] MEDS: hydroCHLOROthiazide 25 MG TABLET PO (16:36)
[2020-05-08] VITALS (8 sets, daily range): BP systolic 119–173; BP diastolic 67–84; PULSE 62–91; RESP 18–19; TEMP 36.1–37.3; O2SAT 93–98
[2020-05-08] MEDS: 0.9 % Sodium Chloride 1,000 ML 60 ML IVCONT (06:49)
[2020-05-08 07:15] LABS: Basophils Percent Auto 0.1 % (0-2); Hematocrit 42.7 % (42-52); Hemoglobin 14.5 g/dl (14.0-18.0); Imm Gran Abs Auto 0.07 X10*3/uL (0.00-0.03); Imm Gran Pct Auto 0.7 % (0.0-0.4); Lymphocytes Absolute Auto 0.3 X10*3/uL (1.2-4.9); Lymphocytes Percent Auto 3.1 % (20-40); MANUAL DIFF FLAG SCAN; Mean Corpuscular Hemoglobin 32.9 pg (27.0-33.0); Mean Corpuscular Volume 96.8 fL (80-98); Mean Platelet Volume 10.2 fL (9.4-12.4); Monocytes Absolute Auto 0.9 X10*3/uL (0.1-1.2); Monocytes Percent Auto 8.9 % (2-11); Neutrophils Absolute Auto 8.5 X10*3/uL (2.0-8.3); Neutrophils Percent Auto 87.2 % (45-73); Platelet Count 141 X10*3/uL (160-400); Red Blood Count 4.41 X10*6/uL (4.60-5.80); Red Cell Distribution Width 12.7 % (11.0-16.0); SCAN SMEAR FLAG 1; White Blood Count 9.8 X10*3/uL (4.8-10.8)
[2020-05-08 07:43] LABS: Anion Gap 15 (12-20); Blood Urea Nitrogen 25 mg/dL (9-16); Carbon Dioxide 24 mmol/L (22-29); Chloride 99 mmol/L (96-108); Creatinine Clr Calc Pharmacy 85.7; Estimated Glomerular Filt Rate > 60; Glucose Random 113 mg/dL (60-115); Potassium 3.2 mmol/l (3.3-5.1); Sodium 135 mmol/L (135-145)
[2020-05-08 08:01] LABS: SLIDE REVIEW VERIFIED
[2020-05-08] MEDS: 0.9 % Sodium Chloride Flush 3 ML SYRINGE IVFLUSH ×3 (08:28→23:23)
--- NOTE | 2020-05-08 09:21 | MHC.CM.PN ---
CM met with Patient.Patient lives alone in an apartment and he uses a cane PRN to assist with mobility.Patient's goal is to return home and CM has initiated and will follow for dc planning. IMM addressed with Patient and the original has been given to him and a copy has been placed on the chart. Patient's Daughter/Yamini Yuan is his HCP and PCP is Dr. Jeff Arreola.
[2020-05-08] MEDS: hydroCHLOROthiazide 25 MG TABLET PO (09:37)
[2020-05-08] MEDS: cefEPime HCl 1 GM in 0.9 % Sodium Chloride 50 ML IV (09:38)
[2020-05-08] MEDS: Losartan Potassium 50 MG TABLET 100 MG PO (09:38)
--- NOTE | 2020-05-08 16:36 | P.PNIM_ITS ---
Subjective Subjective Date of Service: 05/08/20 Interval History: the patient was seen and evaluated this morning Laying in bed, feels comfortable Denies any fever, chills or shortness of breath No reported other overnight events. Physical Exam Vital Signs: Vital Signs: Last Vital Signs Temp 98.3 F 05/08/20 15:29 Pulse 62 05/08/20 15:29 Resp 18 05/08/20 15:29 BP 154/80 H 05/08/20 15:29 Pulse Ox 94 05/08/20 15:29 Body Mass Index 30.9 Constitutional : Alert, oriented, not in distress Neck : Normal inspection, Supple Cardiovascular : RRR, S1 S2, no lower extremity edema Respiratory : Good bilateral air entry, no crackles, wheezes or rhonchi Gastrointestinal: soft, lax, Normal bowel sounds, mild generalized tenderness more noted in the right lower quadrant, no surgical signs Skin : Warm/Dry, No rash Neurological : Alert & oriented x3, No focal deficit Objective Data Current Medications Generic Name Dose Route Start Last Admin Trade Name Finnq PRN Reason Stop Dose Admin Acetaminophen 650 mg 05/07/20 20:06 Acetaminophen 325 Mg Tablet PO Q6H PRN fever Al Hydroxide/Mg Hydroxide 30 ml 05/07/20 13:57 Magnesium Hydrox/Alum Hydrox 30 Ml Oral.Susp PO Q4H PRN Heartburn/Nausea Hydrochlorothiazide 25 mg 05/07/20 15:40 05/08/20 09:37 Hydrochlorothiazide 25 Mg Tablet PO 25 mg DAILY AMY Administration Protocol Cefepime HCl 1 gm/ Sodium 50 mls @ 100 mls/hr 05/07/20 22:00 05/08/20 10:08 Chloride IV Infused BID@1000,2200 [facility] Infusion Latanoprost 1 drop 05/07/20 21:00 05/07/20 21:42 Latanoprost 0.005 % Ophth Jennifer 2.5 Ml Drops EYE-BOTH Not Given BEDTIME [facility] Losartan Potassium 100 mg 05/08/20 09:00 05/08/20 09:38 Losartan Potassium 50 Mg Tablet PO 100 mg DAILY AMY Administration Protocol Morphine Sulfate 2 mg 05/07/20 13:57 Morphine Sulfate 4 Mg/Ml Cartridge IVPUSH Q4H PRN Pain, Severe (Pain Scale 7-10) Ondansetron HCl 4 mg 05/07/20 13:57 Ondansetron Hcl 4 Mg/2 Ml Vial IVPUSH Q8H PRN Nausea and Vomiting Pharmacy Consult 1 each 05/07/20 10:32 Consult Rx Perform Med Rec MISCELLANE ONCE PRN Consult order Sodium Chloride 3 ml 05/07/20 16:00 05/08/20 15:22 0.9 % Sodium Chloride Flush 3 Ml Syringe IVFLUSH 3 ml QSHIFT AMY Administration Labs CBC & Chem 7: 05/08/20 06:11 05/08/20 06:11 Microbiology Microbiology Results: Microbiology 05/07/20 08:22 Blood - Venous Blood Culture - Preliminary No growth after 24 hours. 05/07/20 08:18 Blood - Venous Blood Culture - Preliminary No growth after 24 hours. Assessment and Plan (1) Bacteremia: Status: Acute (2) Afib: Status: Acute (3) Mass of appendix: Status: Acute (4) Lymphoma: Status: Acute (5) Hypertension: Status: Acute Assessment and Plan: a 74 years old male with PMH of non-Hodgkin lymphoma, AFib on Eliquis, HTN among others who presented to the hospital complaining of increased weakness and abdominal pain. abdominal pain Suspected to be secondary to pancreatic mass concerning for lymphoma Has a history of follicular lymphoma per his oncologist Dr. Millan Pain medication is needed Oncology team input appreciated, to do biopsy Sunday to Hold anticoagulation bacteremia Two 2 bottles growing gram-negative rods possible source from the appendical her mass repeat blood cultures To give cefepime for now Id input pending Physical deconditioning Fall Likely secondary to worsening illness, bacteremia To get physical therapy evaluation Atrial fibrillation Continue apixaban Hypertension continue losartan DVT PPX Eliquis
--- NOTE | 2020-05-08 21:58 | W.PM.IDCN ---
History of Present Illness Data of Consult Service Date: 05/08/20 Requesting physician: Garth Ortiz Primary Care Provider: Jeff Arreola MD [facility] Reason for consult: bacteremia He came back to hospital after leaving AMA yesterday He had generalized abdominal pain 01/08 and lymphadenopathy in abdomen and around appendix He has NHL He has gram negative bacteremia Review of Systems Gastrointestinal: Gastrointestinal: Reports abdominal pain Neurologic: Reports system reviewed and no additional complaints, except as documented [facility] Past Medical History Medical History Afib Hypertension Lymphoma Mass of appendix Family History Family history: reviewed and not pertinent Social History Social History Household Members: None Housing: Apartment Alcohol intake: never Smoking Status: Never smoker Advance Directives Date on File: 05/06/20 service: Yes Current occupational status: retired [employer] Allergies Allergy/AdvReac Type Severity Reaction Status Date / Time No Known Allergies Allergy Unverified 03/18/20 14:39 [No Known Allergies*] Home Medications Medication Instructions Recorded Confirmed Type Eliquis 1 tab PO BID 05/05/20 05/07/20 History latanoprost 1 drp BEDTIME 05/05/20 05/07/20 History latanoprost 1 drp OPHTHALMIC (EYE) BEDTIME 05/05/20 05/07/20 History lorazepam 0.5 mg PO DAILY PRN 05/05/20 05/07/20 History losartan 100 mg PO DAILY 05/05/20 05/07/20 History fluticasone propionate INTRANASAL 05/07/20 History Physical Exam Vital Signs: Vital Signs: Last Vital Signs Temp 98.4 F 05/08/20 18:52 Pulse 62 05/08/20 18:52 Resp 18 05/08/20 18:52 BP 166/79 H 05/08/20 18:52 Pulse Ox 98 05/08/20 18:52 Body Mass Index 30.9 Const: General: cooperative HENMT: Head: Yes normal to inspection Mouth: oropharynx normal Eyes: General: appearance normal, both eyes and all related structures Resp: Effort & Inspection: normal respiratory effort Cardio: Rate: regular rate Rhythm: regular rhythm GI: Inspection: Yes normal to inspection Palpation (GI): Soft to palpation and not firm : General: Yes no CVA tenderness Back/Spine/Pelvis: Back: no CVA tenderness Skin: General skin exam: no rashes or lesions noted Extrem: General: Yes normal to inspection Assessment and Plan (1) Bacteremia: Status: Acute Would give Zosyn Possible appendix removal Duration antibiotics to be determined (2) Lymphoma: Status: Acute Results Labs CBC & Chem 7: 05/11/20 05:43 05/11/20 05:43 Labs: Short CBC 05/08/20 Range/Units 06:11 WBC 9.8 (4.8-10.8) X10*3/uL Hgb 14.5 (14.0-18.0) g/dl Hct 42.7 (42-52) % Plt Count 141 L (160-400) X10*3/uL BMP 05/08/20 06:11 Sodium 135 Potassium 3.2 L Chloride 99 Carbon Dioxide 24 BUN 25 H Creatinine 0.77 Calcium 8.0 L Microbiology Microbiology Results: Microbiology 05/07/20 08:22 Blood - Venous Blood Culture - Preliminary No growth after 24 hours. 05/07/20 08:18 Blood - Venous Blood Culture - Preliminary No growth after 24 hours.
[2020-05-08] MEDS: Piperacillin Sodium/Tazobactam 3.375 GM in 0.9 % Sodium Chloride 50 ML IV (22:53)
[2020-05-08] MEDS: Latanoprost 0.005 % Ophth Sol 2.5 ML DROPS 1 DROP EYE-BOTH (22:54)
[2020-05-09] VITALS (7 sets, daily range): BP systolic 124–157; BP diastolic 60–84; PULSE 51–65; RESP 18; TEMP 36.1–36.9; O2SAT 92–100
[2020-05-09] MEDS: Piperacillin Sodium/Tazobactam 3.375 GM in 0.9 % Sodium Chloride 50 ML IV ×3 (06:43→22:52)
[2020-05-09 07:26] LABS: Basophils Percent Auto 0.2 % (0-2); Eosinophils Absolute Auto 0.1 X10*3/uL (0.0-0.4); Eosinophils Percent Auto 0.7 % (0-4); Hematocrit 39.4 % (42-52); Hemoglobin 13.6 g/dl (14.0-18.0); Imm Gran Abs Auto 0.04 X10*3/uL (0.00-0.03); Imm Gran Pct Auto 0.4 % (0.0-0.4); Lymphocytes Absolute Auto 0.3 X10*3/uL (1.2-4.9); Lymphocytes Percent Auto 3.4 % (20-40); MANUAL DIFF FLAG SCAN; Mean Corpuscular HGB Conc 34.5 g/dl (31.0-36.0); Mean Corpuscular Hemoglobin 33.1 pg (27.0-33.0); Mean Corpuscular Volume 95.9 fL (80-98); Mean Platelet Volume 10.1 fL (9.4-12.4); Monocytes Absolute Auto 1.4 X10*3/uL (0.1-1.2); Monocytes Percent Auto 15.7 % (2-11); Neutrophils Absolute Auto 7.3 X10*3/uL (2.0-8.3); Neutrophils Percent Auto 79.6 % (45-73); Platelet Count 156 X10*3/uL (160-400); Red Blood Count 4.11 X10*6/uL (4.60-5.80); Red Cell Distribution Width 12.4 % (11.0-16.0); SCAN SMEAR FLAG 1; White Blood Count 9.2 X10*3/uL (4.8-10.8)
[2020-05-09] MEDS: 0.9 % Sodium Chloride Flush 3 ML SYRINGE IVFLUSH ×2 (07:36→14:05)
[2020-05-09 07:50] LABS: Anion Gap 12 (12-20); Blood Urea Nitrogen 28 mg/dL (9-16); Calcium 7.8 mg/dL (8.4-10.2); Carbon Dioxide 26 mmol/L (22-29); Chloride 101 mmol/L (96-108); Creatinine Clr Calc Pharmacy 90.4; Estimated Glomerular Filt Rate > 60; Glucose Random 114 mg/dL (60-115); Potassium 2.9 mmol/l (3.3-5.1); Sodium 136 mmol/L (135-145)
[2020-05-09 09:09] LABS: SLIDE REVIEW VERIFIED
[2020-05-09] MEDS: Losartan Potassium 50 MG TABLET 100 MG PO (09:10)
[2020-05-09] MEDS: hydroCHLOROthiazide 25 MG TABLET PO (09:10)
--- NOTE | 2020-05-09 09:53 | P.PNGS_ITS ---
Subjective Subjective Interval history: Mr. Hilton is sitting up in bed eating breakfast. He reports diarrhea yesterday but feels much improved today. He denies any abdominal pain, nausea, vomiting or fever. Physical Exam Vital Signs: Vital Signs: Last Vital Signs Temp 97.9 F 05/09/20 07:45 Pulse 60 05/09/20 09:10 Resp 18 05/09/20 07:45 BP 155/75 H 05/09/20 09:10 Pulse Ox 97 05/09/20 07:45 Body Mass Index 30.9 Const: General: cooperative, healthy appearing, comfortable, no acute distress and well developed Orientation/consciousness: patient oriented x3 GI: Inspection: Yes normal to inspection and No distended Palpation (GI): nontender, no guarding and not rigid Skin: General skin exam: no rashes or lesions noted and dry skin Neuro: General: patient oriented x3 Progress Note: A&P Assessment and plan (1) Bacteremia: Problem details: There is concern over lymphadenopathy causing obstruction to appendix and appendicitis Gram negative can be accompanied by anerobes Status: Acute Assessment and Plan: Mr. Hilton presents with initial onset of abdominal pain in the right lower quadrant found to have a thickened appendix wall with diffuse mesenteric lymphadenopathy. Patient has a prior history of lymphoma which was treated expectantly had remained stable for approximately 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 Patient now has positive blood cultures for Gram-negative organisms suggestive of appendicitis due to the lymphoma. Clinically the patient looks great with no tenderness and normal laboratories. He is scheduled for a CT-guided biopsy tomorrow to confirm the diagnosis. Appendectomy may be necessary although it is certainly possible that given the extent of the disease and the presence of the mesenteric lymphoma that a more extensive procedure would be necessary, possibly right colectomy, if tumor is noted extending up the cecum. I discussed this possibility with the patient and his daughter ( Yamini) this morning. They wish to wait until the results of the biopsy before deciding on any surgery. (2) Lymphoma: Status: Acute (3) Mass of appendix: Status: Acute Fall Risk Details Current Medications: Current Medications Generic Name Dose Route Start Last Admin Trade Name Freq PRN Reason Stop Dose Admin Acetaminophen 650 mg 05/07/20 20:06 Acetaminophen 325 Mg Tablet PO Q6H PRN fever Al Hydroxide/Mg Hydroxide 30 ml 05/07/20 13:57 Magnesium Hydrox/Alum Hydrox 30 Ml Oral.Susp PO Q4H PRN Heartburn/Nausea Hydrochlorothiazide 25 mg 05/07/20 15:40 05/09/20 09:10 Hydrochlorothiazide 25 Mg Tablet PO 25 mg DAILY AMY Administration Protocol Piperacillin Sod/Tazobactam 50 mls @ 100 mls/hr 05/08/20 23:00 05/09/20 07:33 Sod 3.375 gm/ Sodium Chloride IV Infused Q8H AMY Infusion Latanoprost 1 drop 05/07/20 21:00 05/08/20 22:54 Latanoprost 0.005 % Ophth Jennifer 2.5 Ml Drops EYE-BOTH 1 drop BEDTIME AMY Administration Losartan Potassium 100 mg 05/08/20 09:00 05/09/20 09:10 Losartan Potassium 50 Mg Tablet PO 100 mg DAILY AMY Administration Protocol Morphine Sulfate 2 mg 05/07/20 13:57 Morphine Sulfate 4 Mg/Ml Cartridge IVPUSH Q4H PRN Pain, Severe (Pain Scale 7-10) Ondansetron HCl 4 mg 05/07/20 13:57 Ondansetron Hcl 4 Mg/2 Ml Vial IVPUSH Q8H PRN Nausea and Vomiting Pharmacy Consult 1 each 05/07/20 10:32 Consult Rx Perform Med Rec MISCELLANE ONCE PRN Consult order Sodium Chloride 3 ml 05/07/20 16:00 05/09/20 07:36 0.9 % Sodium Chloride Flush 3 Ml Syringe IVFLUSH 3 ml QSHIFT AMY Administration Time Spent With Patient Time: Total time spent is greater than 50% in coordination of care (as documented) at patient's floor/unit and/or counseling patient:20 min Time with patient: 15 - 24 minutes Results Laboratory Findings Labs: Laboratory Results - last 24 hr 05/09/20 05/09/20 06:07 06:07 WBC 9.2 RBC 4.11 L Hgb 13.6 L Hct 39.4 L MCV 95.9 MCH 33.1 H MCHC 34.5 RDW 12.4 Plt Count 156 L MPV 10.1 Immature Gran % (Auto) 0.4 Neut % (Auto) 79.6 H Lymph % (Auto) 3.4 L [place] % (Auto) 15.7 H Eos % (Auto) 0.7 Baso % (Auto) 0.2 Lymph # (Auto) 0.3 L [place] # (Auto) 1.4 H Eos # (Auto) 0.1 Baso # (Auto) 0.0 Abs Immat Gran (auto) 0.04 H Absolute Neuts (auto) 7.3 Absolute Nucleated RBC 0.000 Nucleated RBC % (auto) 0.0 Smear Tech's Comments VERIFIED Sodium 136 Potassium 2.9 L Chloride 101 Carbon Dioxide 26 Anion Gap 12 BUN 28 H Creatinine 0.73 Estim Creat Clear Calc 90.4 Estimated GFR > 60 Random Glucose 114 Calcium 7.8 L
[2020-05-09 12:23] LABS: Leukocytes Stool Qualitative NEGATIVE (NEGATIVE)
[2020-05-09 12:40] LABS: CDIFF Ag Negative (Negative); CDIFF Internal ctrl Dots and bkg OK (V); CDiff Toxin Negative (Negative)
--- NOTE | 2020-05-09 13:53 | HO.PM.IMPN ---
Subjective Subjective Date of Service: 05/09/20 Interval History: the patient was seen and evaluated this morning Laying in bed, feels comfortable Denies any fever, chills or shortness of breath No reported other overnight events. Constitutional No fever, chills or weakness No chest pain, palpitation No shortness of breath or coughing No abdominal pain, nausea or vomiting No urinary symptoms No any rash or wounds Physical Exam Vital Signs: Vital Signs: Last Vital Signs Temp 97 F 05/09/20 11: Pulse 65 05/09/20 11:21 Resp 18 05/09/20 11:21 BP 155/81 H 05/09/20 11:21 Pulse Ox 98 05/09/20 11:21 Body Mass Index 30.9 Constitutional : Alert, oriented, not in distress Neck : Normal inspection, Supple Cardiovascular : RRR, S1 S2, no lower extremity edema Respiratory : Good bilateral air entry, no crackles, wheezes or rhonchi Gastrointestinal: soft, lax, Normal bowel sounds, mild generalized tenderness more noted in the right lower quadrant, no surgical signs Skin : Warm/Dry, No rash Neurological : Alert & oriented x3, No focal deficit Objective Data Current Medications Generic Name Dose Route Start Last Admin Trade Name Freq PRN Reason Stop Dose Admin Acetaminophen 650 mg 05/07/20 20:06 Acetaminophen 325 Mg Tablet PO Q6H PRN fever Al Hydroxide/Mg Hydroxide 30 ml 05/07/20 13:57 Magnesium Hydrox/Alum Hydrox 30 Ml Oral.Susp PO Q4H PRN Heartburn/Nausea Hydrochlorothiazide 25 mg 05/07/20 15:40 05/09/20 09:10 Hydrochlorothiazide 25 Mg Tablet PO 25 mg DAILY AMY Administration Protocol Piperacillin Sod/Tazobactam 50 mls @ 100 mls/hr 05/08/20 23:00 05/09/20 07:33 Sod 3.375 gm/ Sodium Chloride IV Infused Q8H AMY Infusion Latanoprost 1 drop 05/07/20 21:00 05/08/20 22:54 Latanoprost 0.005 % Ophth Jennifer 2.5 Ml Drops EYE-BOTH 1 drop BEDTIME AMY Administration Losartan Potassium 100 mg 05/08/20 09:00 05/09/20 09:10 Losartan Potassium 50 Mg Tablet PO 100 mg DAILY AMY Administration Protocol Morphine Sulfate 2 mg 05/07/20 13:57 Morphine Sulfate 4 Mg/Ml Cartridge IVPUSH Q4H PRN Pain, Severe (Pain Scale 7-10) Ondansetron HCl 4 mg 05/07/20 13:57 Ondansetron Hcl 4 Mg/2 Ml Vial IVPUSH Q8H PRN Nausea and Vomiting Pharmacy Consult 1 each 05/07/20 10:32 Consult Rx Perform Med Rec MISCELLANE ONCE PRN Consult order Sodium Chloride 3 ml 05/07/20 16:00 05/09/20 07:36 0.9 % Sodium Chloride Flush 3 Ml Syringe IVFLUSH 3 ml QSHIFT AMY Administration Labs CBC & Chem 7: 05/09/20 06:07 05/09/20 06:07 Microbiology Microbiology Results: Microbiology 05/07/20 08:22 Blood - Venous Blood Culture - Preliminary No growth after 48 hours. 05/07/20 08:18 Blood - Venous Blood Culture - Preliminary No growth after 48 hours. Assessment and Plan (1) Bacteremia: Status: Acute (2) Afib: Status: Acute (3) Mass of appendix: Status: Acute (4) Lymphoma: Status: Acute (5) Hypertension: Status: Acute Assessment and Plan: a 74 years old male with PMH of non-Hodgkin lymphoma, AFib on Eliquis, HTN among others who presented to the hospital complaining of increased weakness and abdominal pain. abdominal pain Suspected to be secondary to pancreatic mass concerning for lymphoma Has a history of follicular lymphoma per his oncologist Dr. Millan Pain medication is needed Oncology team input appreciated, to do biopsy tomorrow morning to Hold anticoagulation Bacteremia Two 2 bottles growing gram-negative rods possible source from the appendical her mass repeat blood cultures Antibiotic changed to IV Zosyn by ID Id input pending Diarrhea Likely secondary to 0 antibiotics To check WBCs in stool and C diff Consider Imodium if needed if they are negative Physical deconditioning Fall Improving Likely secondary to worsening illness, bacteremia physical therapy evaluation Atrial fibrillation Continue apixaban Hypertension continue losartan DVT PPX Eliquis
[2020-05-09] MEDS: Potassium Chloride ER 20 MEQ TAB.ER.PRT 40 MEQ PO (15:51)
[2020-05-09] MEDS: Latanoprost 0.005 % Ophth Sol 2.5 ML DROPS 1 DROP EYE-BOTH (20:52)
[2020-05-10] VITALS (9 sets, daily range): BP systolic 134–188; BP diastolic 62–90; PULSE 52–66; RESP 18–20; TEMP 36.4–36.8; O2SAT 95–99; BMI 30.9
--- NOTE | 2020-05-10 | CT_ITS ---
PROCEDURE: CT GUIDED BIOPSY, ABDOMINAL MASS CLINICAL INFORMATION: Non-Hodgkin's lymphoma. Retroperitoneal and mesenteric lymphadenopathy COMPARISON: Previous CT scans most recent May [address] April 2015 TECHNIQUE: Procedure and risks and benefits including bleeding and infection were discussed with the patient and informed consent was obtained. The patient was positioned in the right decubitus position. Limited axial images through the abdomen were performed. The left flank was prepped and draped in the usual sterile fashion. The skin and soft tissues were anesthetized with 1% lidocaine plain. Using CT guidance and a coaxial system, access to a left periaortic retroperitoneal lymph node was obtained. 5 20-gauge core biopsies were obtained, 2 specimens placed in formalin for pathology and 3 specimens placed in flow cytometry solution. The patient received Versed 1.5 mg and fentanyl 75 mcg intravenously during the procedure. Total sedation time was 30 minutes. Patient dose 3 1 1 mg/cm. This CT examination was performed using dose optimization techniques as appropriate, variously including the following: *Automated exposure control *Adjustment of mA and/or kV according to patient size (this includes techniques or standardized protocols for targeted exams where dose is matched to indication/reason for exam; i.e. extremities or head) *Use of iterative reconstruction technique DLP: 311 mGy-cm FINDINGS: There are retroperitoneal and small bowel mesentery lymph nodes. A left periaortic lymph node inferior to the renal hilum was targeted for biopsy. CT/CT biopsy abdomen percutaneous IMPRESSION: CT-guided left retroperitoneal lymph node biopsy.
[2020-05-10] MEDS: 0.9 % Sodium Chloride Flush 3 ML SYRINGE IVFLUSH ×3 (00:06→15:06)
[2020-05-10] MEDS: Piperacillin Sodium/Tazobactam 3.375 GM in 0.9 % Sodium Chloride 50 ML IV ×3 (06:02→23:13)
[2020-05-10 06:23] LABS: Hemoglobin 13.5 g/dl (14.0-18.0); Mean Corpuscular HGB Conc 34.6 g/dl (31.0-36.0); Mean Corpuscular Hemoglobin 32.5 pg (27.0-33.0); Mean Platelet Volume 9.8 fL (9.4-12.4); Platelet Count 153 X10*3/uL (160-400); Red Blood Count 4.15 X10*6/uL (4.60-5.80); Red Cell Distribution Width 12.2 % (11.0-16.0); White Blood Count 7.4 X10*3/uL (4.8-10.8)
[2020-05-10 06:57] LABS: Anion Gap 12 (12-20); Blood Urea Nitrogen 23 mg/dL (9-16); Calcium 8.2 mg/dL (8.4-10.2); Carbon Dioxide 25 mmol/L (22-29); Chloride 101 mmol/L (96-108); Estimated Glomerular Filt Rate > 60; Glucose Random 107 mg/dL (60-115); Potassium 3.1 mmol/l (3.3-5.1); Sodium 135 mmol/L (135-145)
[2020-05-10] MEDS: Losartan Potassium 50 MG TABLET 100 MG PO (07:48)
[2020-05-10] MEDS: hydroCHLOROthiazide 25 MG TABLET PO (07:49)
[2020-05-10 10:01] LABS: INTERNATIONAL NORM RATIO 1.3 (0.9-1.1); Prothrombin Time 14.9 SEC (10.8-13.0)
--- NOTE | 2020-05-10 11:49 | P.PNIM_ITS ---
Subjective Subjective Date of Service: 05/10/20 Interval History: the patient was seen and evaluated this morning Laying in bed, feels comfortable Denies any fever, chills or shortness of breath No reported other overnight events. Review of Systems Review of Systems: Yes all other systems are reviewed and are negative Constitutional No fever, chills or weakness No chest pain, palpitation No shortness of breath or coughing No abdominal pain, nausea or vomiting No urinary symptoms No any rash or wounds Physical Exam Vital Signs: Vital Signs: Last Vital Signs Temp 97.6 F 05/10/20 10:56 Pulse 66 05/10/20 10:56 Resp 20 05/10/20 10:56 BP 151/72 H 05/10/20 10:56 Pulse Ox 98 05/10/20 10:56 Body Mass Index 30.9 Constitutional : Alert, oriented, not in distress Neck : Normal inspection, Supple Cardiovascular : RRR, S1 S2, no lower extremity edema Respiratory : Good bilateral air entry, no crackles, wheezes or rhonchi Gastrointestinal: soft, lax, Normal bowel sounds, no tenderness, no surgical signs Skin : Warm/Dry, No rash Neurological : Alert & oriented x3, No focal deficit Objective Data Current Medications Generic Name Dose Route Start Last Admin Trade Name Freq PRN Reason Stop Dose Admin Acetaminophen 650 mg 05/07/20 20:06 Acetaminophen 325 Mg Tablet PO Q6H PRN fever Al Hydroxide/Mg Hydroxide 30 ml 05/07/20 13:57 Magnesium Hydrox/Alum Hydrox 30 Ml Oral.Susp PO Q4H PRN Heartburn/Nausea Hydrochlorothiazide 25 mg 05/07/20 15:40 05/10/20 07:49 Hydrochlorothiazide 25 Mg Tablet PO 25 mg DAILY AMY Administration Protocol Piperacillin Sod/Tazobactam 50 mls @ 100 mls/hr 05/08/20 23:00 05/10/20 06:38 Sod 3.375 gm/ Sodium Chloride IV Infused Q8H AMY Infusion Latanoprost 1 drop 05/07/20 21:00 05/09/20 20:52 Latanoprost 0.005 % Ophth Jennifer 2.5 Ml Drops EYE-BOTH 1 drop BEDTIME AMY Administration Loperamide HCl 2 mg 05/09/20 13:58 Loperamide Hcl 2 Mg Capsule PO Q4H PRN Diarrhea Losartan Potassium 100 mg 05/08/20 09:00 05/10/20 07:48 Losartan Potassium 50 Mg Tablet PO 100 mg DAILY [facility] Administration Protocol Morphine Sulfate 2 mg 05/07/20 13:57 Morphine Sulfate 4 Mg/Ml Cartridge IVPUSH Q4H PRN Pain, Severe (Pain Scale 7-10) Ondansetron HCl 4 mg 05/07/20 13:57 Ondansetron Hcl 4 Mg/2 Ml Vial IVPUSH Q8H PRN Nausea and Vomiting Pharmacy Consult 1 each 05/07/20 10:32 Consult Rx Perform Med Rec MISCELLANE ONCE PRN Consult order Sodium Chloride 3 ml 05/07/20 16:00 05/10/20 07:51 0.9 % Sodium Chloride Flush 3 Ml Syringe IVFLUSH 3 ml QSHIFT [facility] Administration Labs CBC & Chem 7: 05/10/20 05:39 05/10/20 05:39 Microbiology Microbiology Results: Microbiology 05/07/20 08:22 Blood - Venous Blood Culture - Preliminary No growth after 48 hours. 05/07/20 08:18 Blood - Venous Blood Culture - Preliminary No growth after 48 hours. Assessment and Plan (1) Bacteremia: Status: Acute (2) Afib: Status: Acute (3) Mass of appendix: Status: Acute (4) Lymphoma: Status: Acute (5) Hypertension: Status: Acute Assessment and Plan: a 74 years old male with PMH of non-Hodgkin lymphoma, AFib on Eliquis, HTN among others who presented to the hospital complaining of increased weakness and abdominal pain. Abdominal pain 2/2 pancreatic mass concerning for lymphoma Has a history of follicular lymphoma per his oncologist Dr. Millan Pain medication as needed Oncology team input appreciated, to do biopsy today to Hold anticoagulation Bacteremia Two 2 bottles growing Bacteroids possible source from the appendical mass repeat blood cultures negative to this point Continue IV Zosyn D3/14 Id input appreciated Diarrhea Likely secondary to antibiotics -ve WBCs in stool and C diff Imodium if needed Physical deconditioning Fall Improving Likely secondary to worsening illness, bacteremia physical therapy evaluation Atrial fibrillation Continue apixaban Hypertension continue losartan DVT PPX Eliquis, on hold for procedure today
[2020-05-10 13:02] LABS: Carbohydrate Antigen 19-9 29 U/mL (<34)
--- NOTE | 2020-05-10 13:53 | MHC.CM.PN ---
Patient is having a biopsy of lymph nodes today and continues on IV MS and IV Zosyn. Possible discharge tomorrow, home no services. Girlfriend will provide transportation. PT has cleared patient to return home no services. CM will continue to follow patient for discharge needs.
--- NOTE | 2020-05-10 14:03 | HO.RADPN ---
RADIOLOGY Narrative Narrative: Left retroperitoneal lymph node core biopsy performed using coaxial system and CT guidance. No complication.
[2020-05-10] MEDS: Lidocaine HCl 1 % MPF 5 ML VIAL 10 ML SUBCUT (14:16)
[2020-05-10] MEDS: Latanoprost 0.005 % Ophth Sol 2.5 ML DROPS 1 DROP EYE-BOTH (21:59)
[2020-05-11] MEDS: 0.9 % Sodium Chloride Flush 3 ML SYRINGE IVFLUSH ×2 (00:28→08:12)
[2020-05-11 04:00] VITALS: BP 164/77; PULSE 54; RESP 20; TEMP 36.6; O2SAT 98
[2020-05-11] MEDS: Piperacillin Sodium/Tazobactam 3.375 GM in 0.9 % Sodium Chloride 50 ML IV (06:23)
[2020-05-11 07:10] LABS: Hematocrit 40.5 % (42-52); Hemoglobin 14.1 g/dl (14.0-18.0); Mean Corpuscular HGB Conc 34.8 g/dl (31.0-36.0); Mean Corpuscular Volume 94.8 fL (80-98); Mean Platelet Volume 9.9 fL (9.4-12.4); Platelet Count 169 X10*3/uL (160-400); Red Blood Count 4.27 X10*6/uL (4.60-5.80); Red Cell Distribution Width 12.3 % (11.0-16.0); White Blood Count 9.9 X10*3/uL (4.8-10.8)
[2020-05-11 07:39] LABS: Anion Gap 13 (12-20); Blood Urea Nitrogen 19 mg/dL (9-16); Calcium 8.1 mg/dL (8.4-10.2); Carbon Dioxide 26 mmol/L (22-29); Chloride 100 mmol/L (96-108); Creatinine Clr Calc Pharmacy 98.5; Estimated Glomerular Filt Rate > 60; Glucose Random 117 mg/dL (60-115); Potassium 2.8 mmol/l (3.3-5.1); Sodium 136 mmol/L (135-145)
[2020-05-11 07:48] VITALS: BP 134/70; PULSE 58; RESP 20; TEMP 36.6; O2SAT 100
[2020-05-11 08:11] VITALS: BP 134/70; PULSE 58
[2020-05-11] MEDS: Losartan Potassium 50 MG TABLET 100 MG PO (08:11)
[2020-05-11] MEDS: hydroCHLOROthiazide 25 MG TABLET PO (08:12)
[2020-05-11] MEDS: Potassium Chloride ER 20 MEQ TAB.ER.PRT 40 MEQ PO (09:53)
--- NOTE | 2020-05-11 10:59 | MHC.CM.PN ---
Patient will be discharged home today no services. Girlfriend will provide transportation.
--- NOTE | 2020-05-11 13:36 | P.DS_ITS ---
DS: Providers Provider Date of admission: 05/07/20 11:12 Primary care physician: Jeff Arreola MD Consults: 05/07/20 11:12 Consult to Hematology / Oncology Routine Consulting Provider: Raffaele Funes Reason for consultation: Evaluation for weakness, appendicular mass, suspected Lymphoma. 05/08/20 08:32 Consult to Infectious Diseases Routine Consulting Provider: Charlotte Means Reason for consultation: Gram negative bacteremia, appendicular mass\suspected lymphoma for eval 05/09/20 07:58 Consult to General Surgery Routine Consulting Provider: [facility] [place] [facility] Reason for consultation: Evaluation for appendicular mass\bacteremia\suggested appendectomy by ID DS: Diagnosis Discharge Diagnosis (1) Bacteremia: Status: Acute (2) Afib: Status: Acute (3) Mass of appendix: Status: Acute (4) Lymphoma: Status: Acute (5) Hypertension: Status: Acute (6) Abdominal pain: Status: Acute DS: Summary Hospital Course Hospital Course: admission note HPI a 74 years old male with PMH of non-Hodgkin lymphoma, AFib on Eliquis, HTN among others who presented to the hospital complaining of increased weakness and abdominal pain. The patient was admitted yesterday to the hospital for the same problem but left AMA as he felt very overwhelmed and concerned. He came back to the hospital today complaining of increased weakness and a fall at home which was mechanical. He did not injure his head. Denies any fever, chills, chest pain, difficulty breathing or change in urine habits. A repeated CT scan of the abdomen showing periappendicular mass with lymph nodules. blood cultures reported to be growing gram-negative rods in 2 bottles Admitted for further evaluation treatment Hospital course The patient was admitted to the hospital for evaluation of worsening weakness and abdominal pain. A CT scan of the abdomen and pelvis was consistent with pancreatic mass for concerning for possible lymphoma given his previous history of liquor lymphoma. He was evaluated by Dr. Funes from Oncology and a biopsy was done pending results From the area surrounding the appendix. Blood cultures from previous admission when he left AMA showed a Gram-negative cocci that in supp to be Bacteroides. He was covered with IV Zosyn per ID evaluation. Repeated blood cultures remain negative during the hospital stay. He was discharged home on Augmentin for 10 days to finish total of 14 days of antibiotics. Presented with a fall. Evaluated by Physical therapy and recommended to be discharged home. He did much better as the weakness was likely result of the bacteremia at the time of presentation. Time Spent with Patient Time attestation: Total time spent providing and/or coordinating discharge services: Physical Exam Vital Signs: Vital Signs: Last Vital Signs Temp 97.9 F 05/11/20 07:48 Pulse 58 05/11/20 08:11 Resp 20 05/11/20 07:48 BP 134/70 05/11/20 08:11 Pulse Ox 100 05/11/20 07:48 Body Mass Index 30.9 Constitutional : Alert, oriented, not in distress Neck : Normal inspection, Supple Cardiovascular : RRR, S1 S2, no lower extremity edema Respiratory : Good bilateral air entry, no crackles, wheezes or rhonchi Gastrointestinal: soft, lax, Normal bowel sounds, no tenderness, no surgical signs Skin : Warm/Dry, No rash Neurological : Alert & oriented x3, No focal deficit DS: Data Data Completed and Pending Pending studies at discharge: Pending at discharge 05/10/20 14:05 Surgical [PTH] Routine Labs on day of discharge: 05/07/20 07:49 ECG 12 lead EKG Stat EKG Documentation DIRECTED 05/07/20 07:50 XR chest 1V Stat 05/07/20 08:18 B Type Natriuretic Peptide Stat Basic Metabolic Panel Stat Carbohydrate Antigen 19-9 Stat Carcinoembryonic Antigen Stat Complete Blood Count Auto Diff Stat Lactic Acid Stat Lipase Stat Liver Panel Stat Magnesium Stat Partial Thromboplastin Time Stat Prothrombin Time INR Stat SLIDE REVIEW Stat Troponin-I High Sensitivity Stat 05/07/20 08:40 CT abdomen pelvis w con Stat 05/07/20 09:58 iohexoL 350 MG/ML [Omnipaque 350 MG/ML] 100 ml IV ONCE ONE 05/07/20 Breakfast Low Sodium Diet 05/07/20 10:32 Consult Rx Perform Med Rec 1 each MISCELLANE ONCE PRN cefEPime HCl [Maxipime] 1 gm 0.9 % Sodium Chloride [Ns] 50 ml IV ONCE 05/07/20 10:54 cefEPime HCl [Maxipime] 1 gm IV .STK-MED ONE 05/07/20 11:02 Code Status Routine Transfer Order Routine 05/07/20 11:21 SARS COV2 PCR INHOUSE Stat 05/07/20 13:57 0.9 % Sodium Chloride [Ns] 1,000 ml IVCONT 60 mls/hr Acetaminophen Supp [Tylenol Supp] 650 mg [place] Q6H PRN Magnesium Hydrox/Alum Hydrox [Maalox] 30 ml PO Q4H PRN Morphine Sulfate 2 mg IVPUSH Q4H PRN ondansetron HCL [Zofran] 4 mg IVPUSH Q8H PRN 05/07/20 13:57 Bedrest w/bedside commode .as directed Cont. Telemetry w/Vital Sign limit Q4HR IV insert/maintain Q4HR Intake and Output QSHIFTE Pulse Oximetry Q4HR Vital Signs Q4HR Physical Therapy Eval & Treat NEEDED 05/07/20 14:14 Add Laboratory Test Routine 05/07/20 14:43 Transfer Order Routine 05/07/20 15:39 Losartan Potassium [Cozaar] 50 mg PO ONCE ONE 05/07/20 15:40 hydroCHLOROthiazide [Microzide] 25 mg PO DAILY 05/07/20 16:00 0.9 % Sodium Chloride Flush [NS Flush] 3 ml IVFLUSH QSHIFT 05/07/20 20:06 Acetaminophen [Tylenol] 650 mg PO Q6H PRN 05/07/20 20:30 Apixaban [Eliquis] 5 mg PO BID@0830,2030 05/07/20 21:00 Latanoprost 0.005 % Ophth Jennifer [Xalatan 0.005 % Oph Jennifer] 1 drop EYE-BOTH BEDTIME 05/07/20 21:23 cefEPime HCl [Maxipime] 1 gm IV .STK-MED ONE 05/07/20 22:00 cefEPime HCl [Maxipime] 1 gm 0.9 % Sodium Chloride [Ns] 50 ml IV BID@1000,2200 05/08/20 06:11 Basic Metabolic Panel DAILY@0600 Complete Blood Count Auto Diff DAILY@0600 SLIDE REVIEW Routine 05/08/20 09:00 Losartan Potassium [Cozaar] 100 mg PO DAILY 05/08/20 09:28 cefEPime HCl [Maxipime] 1 gm IV .STK-MED ONE 05/08/20 22:30 Piperacillin Sodium/Tazobactam [Zosyn] 3.375 gm IV .STK-MED ONE 05/08/20 23:00 Piperacillin Sodium/Tazobactam [Zosyn] 3.375 gm 0.9 % Sodium Chloride [Ns] 50 ml IV Q8H 05/09/20 06:07 Basic Metabolic Panel DAILY@0600 Complete Blood Count Auto Diff DAILY@0600 SLIDE REVIEW Routine 05/09/20 06:38 Piperacillin Sodium/Tazobactam [Zosyn] 3.375 gm IV .STK-MED ONE 05/09/20 09:50 CDiff with Reflex to PCR Routine 05/09/20 11:34 Leukocytes Stool Qualitative Routine 05/09/20 13:58 Loperamide HCl [Imodium] 2 mg PO Q4H PRN Piperacillin Sodium/Tazobactam [Zosyn] 3.375 gm IV .STK-MED ONE 05/09/20 15:44 Potassium Chloride ER [Klor-con] 40 meq PO ONCE ONE 05/09/20 22:42 Piperacillin Sodium/Tazobactam [Zosyn] 3.375 gm IV .STK-MED ONE 05/10/20 CT biopsy abdomen percutaneous Routine 05/10/20 05:39 Basic Metabolic Panel DAILY@0600 Complete Blood Count no Diff DAILY@0600 05/10/20 05:42 Piperacillin Sodium/Tazobactam [Zosyn] 3.375 gm IV .STK-MED ONE 05/10/20 09:40 Prothrombin Time INR Routine 05/10/20 Breakfast NPO Diet 05/10/20 12:48 fentaNYL citrate/PF [Sublimaze] 50 mcg .ROUTE .STK-MED ONE 05/10/20 12:49 Lidocaine HCl 1 % MPF [Xylocaine 1 % MPF] 5 ml .ROUTE .STK-MED ONE Midazolam HCl/PF [Versed] 2 mg IVPUSH .STK-MED ONE Naloxone HCl [Narcan] 0.4 mg .ROUTE .STK-MED ONE flumazeniL [Romazicon] 0.05 mg .ROUTE .STK-MED ONE 05/10/20 14:12 Bedrest ONGOING 05/10/20 14:13 Vital Signs Q4HR 05/10/20 14:15 Lidocaine HCl 1 % MPF [Xylocaine 1 % MPF] 10 ml SUBCUT ONCE ONE 05/10/20 14:57 Piperacillin Sodium/Tazobactam [Zosyn] 3.375 gm IV .STK-MED ONE 05/10/20 22:57 Piperacillin Sodium/Tazobactam [Zosyn] 3.375 gm IV .STK-MED ONE 05/11/20 05:43 Basic Metabolic Panel DAILY@0600 Complete Blood Count no Diff DAILY@0600 05/11/20 05:56 Piperacillin Sodium/Tazobactam [Zosyn] 3.375 gm IV .STK-MED ONE 05/11/20 09:39 Potassium Chloride ER [Klor-con] 40 meq PO ONCE ONE Laboratory Last Values WBC 9.9 X10*3/uL (4.8-10.8) 05/11/20 05:43 RBC 4.27 X10*6/uL (4.60-5.80) L 05/11/20 05:43 Hgb 14.1 g/dl (14.0-18.0) 05/11/20 05:43 Hct 40.5 % (42-52) L 05/11/20 05:43 MCV 94.8 fL (80-98) 05/11/20 05:43 MCH 33.0 pg (27.0-33.0) 05/11/20 05:43 MCHC 34.8 g/dl (31.0-36.0) 05/11/20 05:43 RDW 12.3 % (11.0-16.0) 05/11/20 05:43 Plt Count 169 X10*3/uL (160-400) 05/11/20 05:43 MPV 9.9 fL (9.4-12.4) 05/11/20 05:43 Immature Gran % (Auto) 0.4 % (0.0-0.4) 05/09/20 06:07 Neut % (Auto) 79.6 % (45-73) H 05/09/20 06:07 Lymph % (Auto) 3.4 % (20-40) L 05/09/20 06:07 [place] % (Auto) 15.7 % (2-11) H 05/09/20 06:07 Eos % (Auto) 0.7 % (0-4) 05/09/20 06:07 Baso % (Auto) 0.2 % (0-2) 05/09/20 06:07 Lymph # (Auto) 0.3 X10*3/uL (1.2-4.9) L 05/09/20 06:07 [place] # (Auto) 1.4 X10*3/uL (0.1-1.2) H 05/09/20 06:07 Eos # (Auto) 0.1 X10*3/uL (0.0-0.4) 05/09/20 06:07 Baso # (Auto) 0.0 X10*3/uL (0.0-0.2) 05/09/20 06:07 Abs Immat Gran (auto) 0.04 X10*3/uL (0.00-0.03) H 05/09/20 06:07 Absolute Neuts (auto) 7.3 X10*3/uL (2.0-8.3) 05/09/20 06:07 Absolute Nucleated RBC 0.000 X10*3/uL (0.0-0.012) 05/11/20 05:43 Nucleated RBC % (auto) 0.0 /100WBC (0.0-0.2) 05/11/20 05:43 Smear Tech's Comments VERIFIED 05/09/20 06:07 PT 14.9 SEC (10.8-13.0) H D 05/10/20 09:40 INR 1.3 (0.9-1.1) H 05/10/20 09:40 APTT 31.4 SEC (24.1-38.0) 05/07/20 08:18 Sodium 136 mmol/L (135-145) 05/11/20 05:43 Potassium 2.8 mmol/l (3.3-5.1) L 05/11/20 05:43 Chloride 100 mmol/L (96-108) 05/11/20 05:43 Carbon Dioxide 26 mmol/L (22-29) 05/11/20 05:43 Anion Gap 13 (12-20) 05/11/20 05:43 BUN 19 mg/dL (9-16) H 05/11/20 05:43 Creatinine 0.67 mg/dL (0.5-1.4) 05/11/20 05:43 Estim Creat Clear Calc 98.5 05/11/20 05:43 Estimated GFR > 60 05/11/20 05:43 Random Glucose 117 mg/dL (60-115) H 05/11/20 05:43 Lactic Acid 2.0 mmol/L (0.5-2.0) 05/07/20 08:18 Calcium 8.1 mg/dL (8.4-10.2) L 05/11/20 05:43 Magnesium 2.0 mg/dL (1.6-2.6) 05/07/20 08:18 Total Bilirubin 1.9 mg/dL (0.0-1.0) H 05/07/20 08:18 Direct Bilirubin 0.7 mg/dL (0.0-0.5) H 05/07/20 08:18 AST 43 U/L (5-37) H 05/07/20 08:18 ALT 32 U/L (0-40) 05/07/20 08:18 Alkaline Phosphatase 58 U/L (39-117) 05/07/20 08:18 Lactate Dehydrogenase Cancelled 05/07/20 08:18 Troponin I High Sens 51.0 ng/L (<3.5-35.0) H 05/07/20 08:18 B-Natriuretic Peptide 177 pg/mL (<100) H 05/07/20 08:18 Total Protein 7.1 g/dL (6.5-8.0) 05/07/20 08:18 Albumin 4.1 g/dL (3.5-5.0) 05/07/20 08:18 Lipase 8 U/L (8-78) 05/07/20 08:18 Carcinoembryonic Ag 6.20 mg/mL 05/07/20 08:18 CA 19-9 Antigen 29 U/mL (<34) 05/07/20 08:18 Urine Color YELLOW 05/07/20 11:23 Urine Appearance HAZY 05/07/20 11:23 Urine pH 7.0 (5.0-8.0) 05/07/20 11:23 Ur Specific [place] <= 1.005 (1.005-1.025) 05/07/20 11:23 Urine Protein 2+ MG/DL (NEG-TRACE) H 05/07/20 11:23 Urine Glucose (UA) NEG MG/DL (NEG) 05/07/20 11:23 Urine Ketones 40 MG/DL (NEG) 05/07/20 11:23 Urine Blood 3+ (NEG) H 05/07/20 11:23 Urine Nitrite NEG (NEG) 05/07/20 11:23 Ur Leukocyte Esterase NEG (NEG) 05/07/20 11:23 Urine RBC 15-29 /HPF (0) H 05/07/20 11:23 Urine WBC 0 /HPF (0-4) 05/07/20 11:23 Ur Squamous Epith Cells NONE /LPF 05/07/20 11:23 Urine Bacteria NONE /LPF 05/07/20 11:23 Stool Leukocytes, Qual NEGATIVE (NEGATIVE) 05/09/20 11:34 C. difficile Toxin A&B Negative (Negative) 05/09/20 11:34 C. difficile Antigen Negative (Negative) 05/09/20 11:34 C. difficile Interpret SEE NOTE 05/09/20 11:34 Coronavirus (PCR) NEGATIVE (Negative) 05/07/20 11:21 Preliminary micro results at discharge 05/07/20 08:22 Blood Culture - Preliminary Blood - Venous No growth after 48 hours. 05/07/20 08:18 Blood Culture - Preliminary Blood - Venous No growth after 48 hours. Discharge Plan Discharge Patient Disposition: Home, Self-Care Referrals: Jeff Arreola MD [Primary Care Provider] - 1 Week (05/26/2020 @2:45pm) Discharge Medications: New amoxicillin-pot clavulanate [Augmentin] 875-125 mg tablet 1 tab PO Q12H Qty: 20 RF: 0 Continued hydrochlorothiazide 25 mg tablet 25 mg PO DAILY Qty: 90 RF: 2 Eliquis 5 mg tablet 1 tab PO BID RF: 0 latanoprost 0.005 % drops 1 drp ophthalmic (eye) BEDTIME RF: 0 latanoprost drops 1 drp BEDTIME RF: 0 lorazepam 0.5 mg PO DAILY PRN (Reason: Anxiety) RF: 0 losartan 100 mg PO DAILY RF: 0 fluticasone propionate 50 mcg/actuation [place],Suspension INTRANASAL RF: 0 Discharge Orders: Discharge Order (Routine); Ordered 05/11/20 Ordered By: Garth Ortiz Diet: advance to your usual diet Activity on Discharge: As tolerated Discharge Date/Time: 05/11/20 11:28 Visit Report Forms: Patient Portal Discharge page Care Plan Goals: Read Below Health Concerns: REad below Plan of Treatment: you were admitted to the hospital for evaluation of abdominal pain. Images for your abdomen CT scan showed appendix mass suspected for lymphoma or infection. Your blood cultures came back positive for Bacteroides. You were evaluated by Oncology and Infectious Disease specialist during the hospital stay. Surgery recommended no need for intervention at this point. Infectious Disease recommended 14 days of antibiotics. To continue with Augmentin for 10 more days. Oncology recommended biopsy for the lymph nodes in the mass surrounding the ap pendix which was done. Results should be back within a week. To follow-up with Dr. Millan or Dr. Funes as outpatient
[2020-05-11 17:02] LABS: LLE Markers 16
--- NOTE | 2020-05-25 18:29 | MHC.HEMONC ---
Heme/Onc Navigator - This NN spoke with patient s/p discharge. He has follow up w Dr. Arreola, PCP tomorrow. Has appt w his Hem/Onc, Dr. Reid after Thanksgiving holiday to f/up re: Non-Hodgkins Lymphoma/Follicular Lymphoma. Dr. bean has all of the records from his visit, including CT and Pathology report. Pt has personally spoken w Dr. Reid over the telephone since d/c
== END 2020-05-11 11:28 | disposition home or self-care (01) | DRG 841 ==
LOC: HO.ED 10:35 → HO.IMC 12:39
PROVIDERS: Internal Medicine Medical Oncology; Admitting Provider Student in an Organized Health Care Education/Training Program; Emergency Provider Emergency Medicine; PCP Internal Medicine; Visit Provider Student in an Organized Health Care Education/Training Program
DX: C85.93 Non-Hodgkin lymphoma, unspecified, intra-abdominal lymph nodes (principal); K52.1 Toxic gastroenteritis and colitis; R78.81 Bacteremia; I48.91 Unspecified atrial fibrillation; Z20.828 Contact with and (suspected) exposure to other viral communicable diseases; I10 Essential (primary) hypertension; T36.95XA Adverse effect of unspecified systemic antibiotic, initial encounter; Y92.9 Unspecified place or not applicable; Z79.51 Long term (current) use of inhaled steroids; Z79.899 Other long term (current) drug therapy
CPT/HCPCS: 36415; 49180; 71045; 74176; 74177; 77012; 80048; 80053; 80076; 81001; 82378; 83605; 83690; 83735; 83880; 84484; 85025; 85027; 85610; 85730; 86301; 87040; 87076; 87185; 87324; 87449; 88184; 88185; 88189; 88271; 88275; 88300; 88305; 88341; 88342; 88360; 89055; 93005; 96361; 96365; 97162; 99152; 99153; 99285; J0692; J2543; Q9967; U0003

== ENCOUNTER → 2020-06-14 12:34 | Outpatient (BNVA) | payer MEDICARE, OTHER, SELFPAY | PROVIDERS: PCP Internal Medicine; Visit Provider Internal Medicine Cardiovascular Disease | DX: Z79.899 Other long term (current) drug therapy (principal); R00.1 Bradycardia, unspecified | CPT/HCPCS: 99212 ==

== ENCOUNTER 2020-08-30 14:30 | Inpatient (IN) | payer MEDICARE, OTHER, SELFPAY ==
[2020-08-30] VITALS (8 sets, daily range): BP systolic 113–139; BP diastolic 48–60; PULSE 48–67; RESP 18–20; TEMP 36.4–37.2; O2SAT 90–97; BMI 30.2; BMI 29.2
--- NOTE | ~2020-08-30 | CT_ITS ---
EXAMINATION: CT HEAD WITHOUT CONTRAST CLINICAL INFORMATION: Fall. On Eliquis COMPARISON: CT head 04/19/2019 TECHNIQUE: Contiguous axial imaging was performed from the skull base to vertex without intravenous administration of contrast. This CT examination was performed using dose optimization techniques as appropriate, variously including the following: *Automated exposure control *Adjustment of mA and/or kV according to patient size (this includes techniques or standardized protocols for targeted exams where dose is matched to indication/reason for exam; i.e. extremities or head) *Use of iterative reconstruction technique DLP: 1063 mGy-cm FINDINGS: There is no evidence of acute intracranial hemorrhage or territorial infarction. No abnormal mass effect or midline shift is seen. Godoy to white matter differentiation is well preserved. No extra-axial fluid collections are identified. There is atrophy with prominence of the ventricles and the sulci and hypodensity of the periventricular white matter due to chronic small vessel ischemic disease. There are vascular calcifications of the internal carotid arteries bilaterally. The osseous structures and soft tissues are normal. The mastoid air cells and middle ear cavities are normally aerated. Bilateral lobular density at the anterior right and left nasal passage which may be polyps. There is no occlusion of the nasal passages. CT/CT head/brain wo con IMPRESSION: No acute intracranial pathology.
--- NOTE | ~2020-08-30 | CT_ITS ---
EXAMINATION: CT ANGIOGRAM OF THE CHEST WITH AND WITHOUT CONTRAST (CT PULMONARY ANGIOGRAM FOR PE) CLINICAL INFORMATION: Reason for Exam hemoptysis COMPARISON: Chest radiograph 08/30/2020, CT abdomen with contrast 05/07/2020, CTA chest 04/06/2015. TECHNIQUE: Prior to contrast administration, noncontrast localization images were obtained. Subsequently, multidetector volumetric imaging was performed from the thoracic inlet to below the diaphragms following the administration of 65 mL Omnipaque 350 intravenous contrast. Sagittal, coronal, and MIP oblique sagittal reformatted images were obtained on the CT workstation, uploaded to PACS, and reviewed. This CT examination was performed using dose optimization techniques as appropriate, variously including the following: *Automated exposure control *Adjustment of mA and/or kV according to patient size (this includes techniques or standardized protocols for targeted exams where dose is matched to indication/reason for exam; i.e. extremities or head) *Use of iterative reconstruction technique Total exam dose-length product 157 mGy-cm FINDINGS: QUALITY OF STUDY/CONTRAST BOLUS: Satisfactory. PULMONARY ARTERIES: No central or segmental pulmonary emboli. THORACIC AORTA: No aneurysm or dissection. LUNG: The central airways are clear. There is no endobronchial lesion or bronchiectasis. There are diffuse bilateral patchy predominantly groundglass opacities upper, mid, and lower zones with geographic areas of confluence throughout both lungs. No pneumothorax or pneumomediastinum. PLEURA: No pleural mass or pleural thickening. No effusion. MEDIASTINUM: Normal heart size. No pericardial effusion. No evidence of septal bowing or right heart strain. There is moderate mediastinal adenopathy including superior mediastinum around origin great vessels, precarinal, right paratracheal, prevascular, and subcarinal spaces. Largest node left of aortic arch 2.2 cm short axis and a subcarinal node 1.8 cm short axis. Adenopathy also noted subcarinal space on CT abdomen 05/07/2020. CHEST WALL/AXILLA: No axillary or internal mammary lymphadenopathy. OSSEOUS STRUCTURES: No acute or suspicious osseous abnormality. UPPER ABDOMEN: Prior cholecystectomy. Trace reflux of contrast into the upper hepatic veins. CT/CT angio chest PE protocol IMPRESSION: 1. No pulmonary embolism or thoracic aortic dissection. 2. Diffuse patchy bilateral groundglass opacities with confluence upper, mid, and lower zones. 3. No pneumothorax or pneumomediastinum. No effusion. 4. Mediastinal adenopathy. VTE: negative
--- NOTE | ~2020-08-30 | XR_ITS ---
EXAMINATION: XR CHEST CLINICAL INFORMATION: Shortness of breath COMPARISON: 09/02/2020 TECHNIQUE: Frontal view of the chest was obtained. FINDINGS: Lung volumes are symmetric. There is redemonstration of diffuse heterogeneous airspace opacities bilaterally, similar to prior. No pneumothorax or significant pleural effusion. The cardiomediastinal silhouette is stable. No acute osseous findings are seen. XR/XR chest 1V IMPRESSION: Redemonstrated diffuse heterogeneous airspace opacities, similar to recent prior.
--- NOTE | ~2020-08-30 | XR_ITS ---
EXAMINATION: XR CHEST CLINICAL INFORMATION: Weakness COMPARISON: Previous chest x-ray May 2020 TECHNIQUE: Frontal view of the chest was obtained. FINDINGS: The cardiac and mediastinal contours are stable. The lung volumes are low. There are bilateral lower lung infiltrates. There is no pleural effusion or pneumothorax. There are degenerative changes of the spine. XR/XR chest 1V IMPRESSION: Low lung volumes and bilateral infiltrates. Covid infection should be excluded.
--- NOTE | ~2020-08-30 | US_ITS ---
EXAMINATION: US ABDOMEN LIMITED CLINICAL INFORMATION: Transaminitis. COMPARISON: None TECHNIQUE: Real-time imaging of the liver. Exam was performed portably. FINDINGS: Evaluation of the liver is limited due to patient body habitus. Liver echotexture appears increased. Liver appears normal in size and contour. There are several small echogenic foci in the left lobe of the liver. No calcifications are seen on recent CT scan. It is uncertain whether this represents calcifications or could represent air in the liver. There is no biliary duct dilatation. No ascites in the right upper quadrant is seen. US/US abdomen limited IMPRESSION: Limited exam. Increased liver echotexture. Small echogenic densities seen in the left lobe of the liver questionable for calcifications versus air. No corresponding finding seen on recent abdominal CT scan May 2020
--- NOTE | ~2020-08-30 | CT_ITS ---
EXAMINATION: CT HEAD WITHOUT CONTRAST (STROKE PROTOCOL) INDICATION INFORMATION: Bilateral eye deviated to right COMPARISON: 08/30/2020 TECHNIQUE: Noncontrast CT of the head was performed. DLP: 1546 mGy-cm DOSE LOWERING TECHNIQUES: This CT examination was performed using dose optimization techniques as appropriate, variously including the following: - Automated exposure control - Adjustment of mA and/or kV according to patient size (this includes techniques or standardized protocols for targeted exams were dose is matched to indication/reason for exam; i.e. extremities or head) - Use of iterative reconstruction technique FINDINGS: Suboptimal assessment due to motion artifact. There is no appreciable evidence of acute intracranial hemorrhage or territorial infarction. No abnormal mass-effect or midline shift is seen. Godoy to white matter differentiation is well preserved. No extra-axial fluid collections are identified. The ventricles are normal in size. There is moderate periventricular white matter hypoattenuation consistent with chronic small vessel ischemic disease. Mild volume loss is noted. The osseous structures and soft tissues are normal. Redemonstrated focal density at the anterior right and left nasal passages. The mastoid air cells and visualized portions of the paranasal sinuses are well-aerated. CT/CT head for stroke IMPRESSION: Suboptimal assessment due to motion artifact. No acute findings identified. This critical result was discussed with Dr. Serra on 09/03/2020 12:02 AM, and it was ascertained that the content and urgency of the report was understood at the time of direct communication.
--- NOTE | 2020-08-30 14:36 | ED.WEAKNESS ---
HPI - Weakness General Chief complaint: Weakness Stated complaint: WEAKNESS W/FALL, +COVID SUNDAY Time Seen by Provider: 08/30/20 14:31 Source: patient, EMS and old records reviewed Mode of arrival: EMS Limitations: no limitations History of Present Illness HPI Narrative: 74 yo male with hx of afib on eliquis, HTN, non hodkins lymphoma not on chemo comes in with c/o weakness from COVID but no CP/SOB, states he slid out of bed 13 hours ago and was weak so he couldn't get off the floor, lives alone, his girlfriend couldn't get a hold of him so a check was done, no trauma reported MD Complaint: generalized weakness Onset (ago): day(s) (2) Duration: constant Location: generalized Migration: none Severity: moderate Quality: aching Relieving factors: none Exacerbating factors: none Context: recent illness (dx with COVID on Sunday ) Associated symptoms: loss of appetite Related Data Home Medications Medication Instructions Recorded Confirmed Eliquis 1 tab PO BID 05/05/20 08/30/20 latanoprost 1 drp OPHTHALMIC (EYE) BEDTIME 05/05/20 08/30/20 fluticasone propionate INTRANASAL 05/07/20 08/30/20 losartan 100 mg tablet 100 mg PO DAILY 05/26/20 08/30/20 acetaminophen 500 mg tablet 500 mg PO Q6H PRN 06/14/20 08/30/20 [id number] tablet 1 tab PO DAILY 06/14/20 08/30/20 Previous Rx's Medication Instructions Recorded hydrochlorothiazide 25 mg tablet 25 mg PO DAILY #90 tab 04/02/20 amoxicillin-pot clavulanate 1 tab PO Q12H #20 tab 05/11/20 [Augmentin] lorazepam 0.5 mg tablet 0.5 mg PO BEDTIME PRN #90 tab 08/26/20 Allergies Allergy/AdvReac Type Severity Reaction Status Date / Time No Known Allergies Allergy Verified 08/30/20 13:51 [No Known Allergies*] Review of Systems Review of Systems: Constitutional : No Weight loss, No Fever, No Chills, pos Fatigue, pos Malaise ENT/Mouth : No sore throat, No Rhinorrhea Eyes: No Eye Pain, No Swelling, No Redness Cardiovascular : No Chest Pain, No SOB, No Dyspnea on Exertion, No Orthopnea, No Edema, No Palpitations Respiratory : No Cough, No Sputum, No Wheezing Gastrointestinal : No Nausea, No Vomiting, No Diarrhea, No Constipation, No abdominal Pain, No Hematochezia, No Melena Genitourinary : No Dysuria, No Urinary Frequency, No Hematuria, Musculoskeletal : No joint pain, pos Myalgias, No Joint Swelling Skin : No Skin Lesions, No rash Neuro : pos Weakness, No Numbness, No Dizziness, No Headache Psych : No Anxiety/Panic, No Depression Heme/Lymph: No Bruising, No Bleeding,No Lymphadenopathy Endocrine : No Polyuria, No Polydipsia All other systems reviewed and are negative [facility] Past Medical History Attestation statement: The following information was validated with the patient. Medical History Afib Hypertension Hypertension Lymphoma Mass of appendix Surgical History History of biopsy History of cholecystectomy History of surgery Family History Family History Father Medical history unknown Mother Medical history unknown Social History Social History Household Members: None Housing: Apartment Alcohol intake: current Alcohol intake frequency: 0-2 drinks per day Alcohol type: hard liquor Smoking Status: Former smoker Advance Directives: Yes Advance Directives on File: Yes Advance Directives Date on File: 05/06/20 service: Yes Current occupational status: retired Physical Exam Vital Signs: Vital Signs: Last Vital Signs Temp 98.9 F 08/30/20 14:43 Pulse 56 08/30/20 15:32 Resp 18 08/30/20 15:32 BP 113/49 L 08/30/20 15:32 Pulse Ox 93 08/30/20 15:32 Body Mass Index 30.2 Appearance: Alert. Oriented X3. No acute distress. Eyes: Pupils equal, round and reactive to light. ENT: Pharynx normal. Neck: Normal inspection. Neck supple. CVS: irregular heart rate and rhythm. Pulses normal. Respiratory: No respiratory distress. Breath sounds normal. Abdomen: Soft and nontender. Skin: Skin warm and dry. Normal skin color. Normal skin turgor. Extremities: No lower extremity edema. No calf ttp Neuro: Oriented X 3. No motor deficit. No sensory deficit. Course Course Course Narrative: signed out to Dr. Nowak pending workup 1L of NS over 2 hours MDM - Weakness MDM Narrative Medical decision making narrative: 74 yo male with afib on eliquis dx with COVID on Sunday felt weak and slid out of bed denies injury was on the floor x 13 hours - at this time denies complaints will need labs, EKG, CT head given AC therapy, CPK, fluid bolus over 1 hour 1L NS - dispo per results and findings. ECG Data Attestation: I personally reviewed and interpreted this ECG as follows: ECG interpretation date: 08/30/20 ECG interpretation time: 15:39 Interpretation: Rate: 57 Rhythm: afib [place]: left Normal QRS complex. ST T wave : nonspecific, no RYDER qTC: normal prior studies: no acute ischemia The study has been interpreted contemporaneously by me. . Discharge Plan Discharge Clinical Impression: Pneumonia due to 2019-nCoV, Weakness Prescriptions: No Action hydrochlorothiazide 25 mg tablet 25 mg PO DAILY Qty: 90 RF: 2 lorazepam 0.5 mg tablet 0.5 mg PO BEDTIME PRN (Reason: anxiety) Qty: 90 RF: 5 Eliquis 5 mg tablet 1 tab PO BID RF: 0 latanoprost 0.005 % drops 1 drp ophthalmic (eye) BEDTIME RF: 0 fluticasone propionate 50 mcg/actuation [place],Suspension INTRANASAL RF: 0 amoxicillin-pot clavulanate [Augmentin] 875-125 mg tablet 1 tab PO Q12H Qty: 20 RF: 0 losartan 100 mg tablet 100 mg PO DAILY RF: 0 [id number] Tablet 1 tab PO DAILY RF: 0 acetaminophen [Tylenol Extra Strength] 500 mg tablet 500 mg PO Q6H PRNRF: 0
--- NOTE | 2020-08-30 14:46 | ECG_ITS ---
Test Reason : SOB Blood Pressure : / mmHG Vent. Rate : 057 BPM Atrial Rate : 061 BPM P-R Int : 000 ms QRS Dur : 086 ms QT Int : 542 ms P-R-T Axes : 000 -25 -05 degrees QTc Int : 527 ms Atrial fibrillation Prolonged QT Abnormal ECG When compared with ECG of 07-MAY-2020 07:44, QT has lengthened Referred By: Rosemary Zuniga Electronically Signed By:MARCELINO BATISTA
[2020-08-30 16:49] LABS: Basophils Percent Auto 0.1 % (0-2); Hematocrit 43.6 % (42-52); Hemoglobin 15.5 g/dl (14.0-18.0); Imm Gran Abs Auto 0.04 X10*3/uL (0.00-0.03); Imm Gran Pct Auto 0.4 % (0.0-0.4); Lymphocytes Absolute Auto 0.4 X10*3/uL (1.2-4.9); Lymphocytes Percent Auto 3.9 % (20-40); MANUAL DIFF FLAG SCAN; Mean Corpuscular HGB Conc 35.6 g/dl (31.0-36.0); Mean Corpuscular Volume 90.1 fL (80-98); Mean Platelet Volume 9.9 fL (9.4-12.4); Monocytes Absolute Auto 0.8 X10*3/uL (0.1-1.2); Monocytes Percent Auto 8.7 % (2-11); Neutrophils Absolute Auto 8.4 X10*3/uL (2.0-8.3); Neutrophils Percent Auto 86.9 % (45-73); Platelet Count 172 X10*3/uL (160-400); Red Blood Count 4.84 X10*6/uL (4.60-5.80); SCAN SMEAR FLAG 1; White Blood Count 9.7 X10*3/uL (4.8-10.8)
[2020-08-30] MEDS: 0.9 % Sodium Chloride 500 ML IV (16:57)
[2020-08-30] MEDS: 0.9 % Sodium Chloride 1,000 ML 999 ML IVCONT (16:57)
[2020-08-30 17:03] LABS: INTERNATIONAL NORM RATIO 2.1 (0.9-1.1); Prothrombin Time 25.4 SEC (10.8-13.0)
[2020-08-30 17:24] LABS: SLIDE REVIEW VERIFIED
[2020-08-30 17:36] LABS: Lactic Acid 2.1 mmol/L (0.5-2.0); Troponin-I High Sensitivity 273.5 ng/L (<3.5-35.0)
[2020-08-30 17:58] LABS: Aspartate Amino Transferase 396 U/L (5-37); Lactate Dehydrogenase 1215 U/L (118-273)
[2020-08-30 17:59] LABS: Alanine Aminotransferase 145 U/L (0-40); Alkaline Phosphatase 82 U/L (39-117); Anion Gap 15 (12-20); Bilirubin Direct 0.9 mg/dL (0.0-0.5); Bilirubin Total 2.2 mg/dL (0.0-1.0); Calcium 8.9 mg/dL (8.4-10.2); Carbon Dioxide 26 mmol/L (22-29); Chloride 98 mmol/L (96-108); Creatinine Clr Calc Pharmacy 70.8; Estimated Glomerular Filt Rate > 60; Glucose Random 118 mg/dL (60-115); Magnesium 2.1 mg/dL (1.6-2.6); Potassium 3.2 mmol/L (3.3-5.1); Sodium 136 mmol/L (135-145)
[2020-08-30 18:00] LABS: Blood Urea Nitrogen 36 mg/dL (9-16); Total Protein 6.9 g/dL (6.5-8.0)
--- NOTE | 2020-08-30 18:24 | PC.NURSE ---
Pt sleeping in bed at this time. respirations even/unlabored bilaterally. no sign of distress noted. will continue to monitor.
[2020-08-30 18:33] LABS: COVID-19 Test Positive (Negative)
[2020-08-30 18:35] LABS: Ferritin 3430 ng/mL (20-250)
[2020-08-30 18:47] LABS: Reflex Lactate? Lactic Acid Added
[2020-08-30 19:48] LABS: ~Lactic Acid-LAB USE ONLY 2.1 mmol/L (0.5-2.0)
--- NOTE | 2020-08-30 20:37 | PC.NURSE ---
from ed arrival patient has had approximately 250ml of red colored urine. patient is extremely weak and is 2+ assist. Patient desats with position change and talking. Patient O2 increased from 2 to 3 L post repositioning in bed. pt remains afib in rate from 40s to high 60s. vss remain stable.
[2020-08-30 20:59] LABS: Troponin-I High Sensitivity 216.4 ng/L (<3.5-35.0)
--- NOTE | 2020-08-30 21:00 | P.HPHOSP_ITS ---
History of Present Illness Date of Service: 08/30/20 Chief Complaint: Fall 74-year-old male with a past medical history of hypertension, hyperlipidemia, AFib on Eliquis, history of non-Hodgkin's lymphoma presented to the hospital with a chief complaint of fall. Patient reported that he went to the bathroom and subsequently when he is trying to come back he has slipped as he was wearing socks and fell on the floor and was not able to get up because he felt weak all over. Denies any pain in the hips or back. Denies any numbness tingling. Denies any headaches. Denies any head strike or loss of consciousness. Denies any seizure-like activity. Patient denied any chest pain palpitations lightheadedness or dizziness at the time of the episode. Denied any of these symptoms at the time of interview as well. Denies any urinary complaints. Review of all other systems is negative except mentioned above ER course: Per ER team patient exam was nonfocal CT head showed no acute findings lab showed rhabdomyolysis, normal renal function, also noted to have elevated troponins and liver enzymes presumed to be in the setting of rhabdomyolysis. Patient came back positive for COVID-19 pneumonia saturating at 92% on room air and subsequently placed on 2 L of oxygen. Per RN in the ER patient was desaturating to 86% with minimal like activity. Subsequently placed on nasal cannula. Patient appears comfortable breathing comfortably. No evidence of respiratory distress. No leukocytosis or fevers. Admitted to the hospital for further management. [facility] Medical History Afib Hypertension Hypertension Lymphoma Mass of appendix Family History Father Medical history unknown Mother Medical history unknown Surgical History History of biopsy History of cholecystectomy History of surgery Social History Household Members: None Housing: Apartment Alcohol intake: unknown Smoking Status: Never smoker Smoked in Last 30 Days: No Use of substances other than those prescribed or required for medical reasons: No Advance Directives: Yes Advance Directives on File: Yes Advance Directives Date on File: 05/06/20 service: Yes Current occupational status: retired [employer] Allergies Allergy/AdvReac Type Severity Reaction Status Date / Time No Known Allergies Allergy Verified 08/30/20 13:51 [No Known Allergies*] Active Medications: Current Medications Generic Name Dose Route Start Last Admin Trade Name Freq PRN Reason Stop Dose Admin Acetaminophen 650 mg 08/30/20 20:55 Acetaminophen 325 Mg Tablet PO Q6H PRN Pain, Mild (Pain Scale 1-3) Apixaban 5 mg 08/30/20 21:00 Apixaban 5 Mg Tablet PO BID AMY Sodium Chloride 1,000 mls @ 100 mls/hr 08/30/20 21:00 Ns IVCONT .Q10H AMY Latanoprost 1 drop 08/30/20 21:00 Latanoprost 0.005 % Ophth Jennifer 2.5 Ml Drops EYE-BOTH BEDTIME [facility] Lorazepam 0.5 mg 08/30/20 20:58 Lorazepam 0.5 Mg Tablet PO BEDTIME PRN anxiety Losartan Potassium 100 mg 08/31/20 09:00 Losartan Potassium 50 Mg Tablet PO DAILY [facility] Protocol Multivitamins/Minerals 1 tab 08/31/20 09:00 Multivitamin With Minerals Tablet PO DAILY [facility] Sodium Chloride 3 ml 08/31/20 00:00 0.9 % Sodium Chloride Flush 3 Ml Syringe IVFLUSH QSHIFT [facility] Home Medications Medication Instructions Recorded Confirmed Last Taken Type Eliquis 1 tab PO BID 05/05/20 08/30/20 1 Day Ago History ~08/29/20 latanoprost 1 drp OPHTHALMIC (EYE) BEDTIME 05/05/20 08/30/20 1 Day Ago History ~08/29/20 losartan 100 mg tablet 100 mg PO DAILY 05/26/20 08/30/20 1 Day Ago History ~08/29/20 acetaminophen 500 mg tablet 500 mg PO Q6H PRN 06/14/20 08/30/20 1 Day Ago History ~08/29/20 [id number] tablet 1 tab PO DAILY 06/14/20 08/30/20 1 Day Ago History ~08/29/20 Physical Exam Vital Signs and Narrative: Vital Signs: Last Vital Signs Temp 97.5 F 08/30/20 19:47 Pulse 65 08/30/20 20:00 Resp 18 08/30/20 20:00 BP 120/48 L 08/30/20 20:00 Pulse Ox 97 08/30/20 20:00 Body Mass Index 30.2 Gen: Appears be in no acute distress. Speaks in full sentences HEENT: NCAT, Moist mucosa. Pulmonary: Mildly coarse breath sounds, fair air entry CVS: Normal S1-S2 Abdomen: BS+, Soft, Nontender Extremities: Warm well perfused; benign musculoskeletal exam. No spinal tenderness noticed. Neuro: Alert and awake. Grossly nonfocal. Results Labs CBC and Chem 7: 08/30/20 16:42 08/30/20 16:42 Labs: Laboratory Results - last 24 hr 08/30/20 08/30/20 08/30/20 16:42 16:42 16:42 MCV 90.1 MCH 32.0 MCHC 35.6 RDW 13.0 Plt Count 172 MPV 9.9 Immature Gran % (Auto) 0.4 Neut % (Auto) 86.9 H Lymph % (Auto) 3.9 L Cache % (Auto) 8.7 Eos % (Auto) 0.0 Baso % (Auto) 0.1 Lymph # (Auto) 0.4 L Cache # (Auto) 0.8 Eos # (Auto) 0.0 Baso # (Auto) 0.0 Abs Immat Gran (auto) 0.04 H Absolute Neuts (auto) 8.4 H Absolute Nucleated RBC 0.000 Nucleated RBC % (auto) 0.0 Smear Tech's Comments VERIFIED PT INR APTT Anion Gap 15 Estim Creat Clear Calc 70.8 Estimated GFR > 60 Random Glucose 118 H Lactic Acid 2.1 H* Lactic Acid Fup @ 2Hr Calcium 8.9 D Magnesium 2.1 Ferritin 3430 H Total Bilirubin 2.2 H Direct Bilirubin 0.9 H AST 396 H ALT 145 H Alkaline Phosphatase 82 D Lactate Dehydrogenase 1215 H Total Creatine Kinase 85420 H Troponin I High Sens Total Protein 6.9 Albumin 4.0 COVID-19 ([facility]) COVID-19 Clin Com 08/30/20 08/30/20 08/30/20 16:42 16:42 18:03 MCV MCH MCHC RDW Plt Count MPV Immature Gran % (Auto) Neut % (Auto) Lymph % (Auto) Cache % (Auto) Eos % (Auto) Baso % (Auto) Lymph # (Auto) Cache # (Auto) Eos # (Auto) Baso # (Auto) Abs Immat Gran (auto) Absolute Neuts (auto) Absolute Nucleated RBC Nucleated RBC % (auto) Smear Tech's Comments PT 25.4 H D INR 2.1 H APTT 30.0 Anion Gap Estim Creat Clear Calc Estimated GFR Random Glucose Lactic Acid Lactic Acid Fup @ 2Hr Calcium Magnesium Ferritin Total Bilirubin Direct Bilirubin AST ALT Alkaline Phosphatase Lactate Dehydrogenase Total Creatine Kinase Troponin I High Sens 273.5 H D Total Protein Albumin COVID-19 ([facility]) Positive A COVID-19 Clin Com See Note 08/30/20 08/30/20 19:14 20:13 MCV MCH MCHC RDW Plt Count MPV Immature Gran % (Auto) Neut % (Auto) Lymph % (Auto) Cache % (Auto) Eos % (Auto) Baso % (Auto) Lymph # (Auto) Cache # (Auto) Eos # (Auto) Baso # (Auto) Abs Immat Gran (auto) Absolute Neuts (auto) Absolute Nucleated RBC Nucleated RBC % (auto) Smear Tech's Comments PT INR APTT Anion Gap Estim Creat Clear Calc Estimated GFR Random Glucose Lactic Acid Lactic Acid Fup @ 2Hr 2.1 H* Calcium Magnesium Ferritin Total Bilirubin Direct Bilirubin AST ALT Alkaline Phosphatase Lactate Dehydrogenase Total Creatine Kinase Troponin I High Sens 216.4 H Total Protein Albumin COVID-19 ([facility]) COVID-19 Clin Com Imaging Radiologist's Impressions: Impressions Head CT 08/30/20 14:46 IMPRESSION: No acute intracranial pathology. Chest X-Ray 08/30/20 14:47 IMPRESSION: Low lung volumes and bilateral infiltrates. Covid infection should be excluded. Assessment and Plan (1) Pneumonia due to 2019-nCoV: Status: Acute 74-year-old male with a past medical history of hypertension, hyperlipidemia, history of non-Hodgkin's lymphoma, AFib on Eliquis presented to the hospital with a chief complaint of fall. Noted to have COVID-19 pneumonia/rhabdomyolysis/transaminitis. Admitted for further management. COVID-19 pneumonia: Patient was saturating 92% on room air at rest and with minimal movement saturating 86% on room air. Placed on supplemental oxygen via nasal cannula. Will keep the patient on dexamethasone 6 mg p.o. Hold off antibiotics given patient is afebrile and has no leukocytosis. ID consult for further recommendations. Fall: Mechanical nature. Denies any head strike or loss of consciousness. Denies any lightheadedness or dizziness. Exam nonfocal. CT head showed no acute findings. Fall precautions. PT/OT eventually. Rhabdomyolysis: Secondary to the fall. Patient was on the ground for 13 hours. Subsequently family called in and will be spending too found him on the floor. IV fluids. Monitor CPK levels. Monitor respiratory status while on IV fluids given COVID-19 pneumoniae. Monitor renal function. Elevated troponins: EKG nonischemic. Patient denies any chest pain. Will follow the troponins. Cardiology consult. Presumed to be in the setting of rhabdomyolysis. Transaminitis: Again presumed to be in the setting of rhabdomyolysis. Will also check for acute hepatitis panel and right upper quadrant ultrasound to rule out any other pathology. History of hypertension/hyperlipidemia: Continue home medications including losartan given normal renal function. History of AFib: Rate controlled. Continue Eliquis. DVT prophylaxis: Patient on Eliquis Code status: DNR/DNI.
[2020-08-30 21:18] LABS: Reflex Lactate? 2 Y
--- NOTE | 2020-08-30 21:31 | PC.NURSE ---
attempted to call for report. rn unavailable.
--- NOTE | 2020-08-30 21:56 | PC.NURSE ---
attempted to call [facility] with no answer.
[2020-08-30] MEDS: Apixaban 5 MG TABLET PO (21:59)
[2020-08-30] MEDS: 0.9 % Sodium Chloride 1,000 ML 100 ML IVCONT (21:59)
[2020-08-30] MEDS: Latanoprost 0.005 % Ophth Sol 2.5 ML DROPS 1 DROP EYE-BOTH (22:57)
[2020-08-30 23:24] LABS: ~Lactic Acid-LAB USE ONLY 2.6 mmol/L (0.5-2.0)
[2020-08-31] VITALS (7 sets, daily range): BP systolic 121–175; BP diastolic 55–98; PULSE 60–92; RESP 14–65; TEMP 36.1–36.9; O2SAT 89–96
[2020-08-31] MEDS: 0.9 % Sodium Chloride Flush 3 ML SYRINGE IVFLUSH ×2 (03:43→07:27)
[2020-08-31 06:22] LABS: Basophils Percent Auto 0.1 % (0-2); Hematocrit 39.7 % (42-52); Imm Gran Abs Auto 0.03 X10*3/uL (0.00-0.03); Imm Gran Pct Auto 0.3 % (0.0-0.4); Lymphocytes Absolute Auto 0.4 X10*3/uL (1.2-4.9); Lymphocytes Percent Auto 3.2 % (20-40); MANUAL DIFF FLAG SCAN; Mean Corpuscular HGB Conc 35.3 g/dl (31.0-36.0); Mean Corpuscular Hemoglobin 31.8 pg (27.0-33.0); Mean Corpuscular Volume 90.2 fL (80-98); Mean Platelet Volume 10.3 fL (9.4-12.4); Monocytes Absolute Auto 0.8 X10*3/uL (0.1-1.2); Monocytes Percent Auto 6.8 % (2-11); Neutrophils Absolute Auto 9.8 X10*3/uL (2.0-8.3); Neutrophils Percent Auto 89.6 % (45-73); Platelet Count 149 X10*3/uL (160-400); SCAN SMEAR FLAG 1
[2020-08-31 06:43] LABS: Anion Gap 16 (12-20); Blood Urea Nitrogen 31 mg/dL (9-16); Calcium 8.4 mg/dL (8.4-10.2); Carbon Dioxide 24 mmol/L (22-29); Chloride 104 mmol/L (96-108); Creatinine Clr Calc Pharmacy 80.2; Estimated Glomerular Filt Rate > 60; Glucose Random 104 mg/dL (60-115); Potassium 3.7 mmol/L (3.3-5.1); Sodium 140 mmol/L (135-145)
[2020-08-31 06:49] LABS: SLIDE REVIEW VERIFIED
[2020-08-31] MEDS: 0.9 % Sodium Chloride 1,000 ML 100 ML IVCONT ×2 (07:30→16:49)
[2020-08-31] MEDS: Losartan Potassium 50 MG TABLET 100 MG PO (09:07)
[2020-08-31] MEDS: dexAMETHasone 6 MG TABLET PO (09:07)
[2020-08-31] MEDS: Apixaban 5 MG TABLET PO ×2 (09:07→21:11)
--- NOTE | 2020-08-31 09:47 | PM.CNCAR ---
History of Present Illness History of Present Illness Date of Service: 08/31/20 Consult reason: troponin elevation Chief complaint: Covid-19 pneumonia/rhabdomyolysis Narrative: This is a consult regarding elevated troponins. Patient of . He has history of chronic atrial fibrillation. It appears that he was admitted mainly for a fall. Seems mechanical. He slipped on his way back from the bathroom. No dizziness or syncopal episode. In this setting, he was tested for COVID and that was positive. He was also slightly hypoxic. He was admitted. Troponins were elevated and hence we have been asked to see him. Patient does not have any chest pain or any other cardiac symptoms at this time. He states he is feeling okay. Review of Systems Review of Systems: Yes all other systems are reviewed and are negative Cardiovascular: Cardiovascular: Reports as per HPI, Reports no additional cardiovascular complaints, Denies acrocyanosis, Denies cool extremities, Denies painful fingertips, Denies chest pain, Denies chest pain at rest, Denies diaphoresis, Denies syncope, Denies irregular heart rhythm, Denies claudication, Denies leg edema, Denies lightheadedness, Denies palpitations and Denies dyspnea Respiratory: Respiratory: Denies dyspnea Neurologic: Denies syncope Endocrine: Endocrine: Denies palpitations PMF Past Medical History Medical History (Updated 08/31/20 @ 09:53 by Willian Garland MD) Afib Hypertension Hypertension Lymphoma Mass of appendix Persistent atrial fibrillation Family History Family History Father Medical history unknown Mother Medical history unknown Surgical History Surgical History History of biopsy History of cholecystectomy History of surgery Social History Social History Household Members: None Housing: Apartment Alcohol intake: unknown Smoking Status: Never smoker Smoked in Last 30 Days: No Use of substances other than those prescribed or required for medical reasons: No Have you been hit, kicked, punched, or otherwise hurt by someone within the past year? If so, by whom?: No Do you feel safe in your current relationship?: Yes Is there a partner from a previous relationship who is making you feel unsafe now?: No Are you made to feel afraid or neglected: No Advance Directives: Yes Advance Directives on File: Yes Advance Directives Date on File: 05/06/20 Do you have thoughts of harming others: None Do you have a plan to hurt others: No Plan Recently lost weight without trying: Unsure service: Yes Current occupational status: retired Meds Allergies Allergy/AdvReac Type Severity Reaction Status Date / Time No Known Allergies Allergy Verified 08/30/20 13:51 [No Known Allergies*] Active Medications: Current Medications Generic Name Dose Route Start Last Admin Trade Name Freq PRN Reason Stop Dose Admin Acetaminophen 650 mg 08/30/20 20:55 Acetaminophen 325 Mg Tablet PO Q6H PRN Pain, Mild (Pain Scale 1-3) Apixaban 5 mg 08/30/20 21:00 08/31/20 09:07 Apixaban 5 Mg Tablet PO 5 mg BID AMY Administration Dexamethasone 6 mg 08/31/20 09:00 08/31/20 09:07 Dexamethasone 6 Mg Tablet PO 6 mg DAILY AMY Administration Sodium Chloride 1,000 mls @ 100 mls/hr 08/30/20 21:00 08/31/20 07:30 Ns IVCONT 100 mls/hr .Q10H AMY Administration Latanoprost 1 drop 08/30/20 21:00 08/30/20 22:57 Latanoprost 0.005 % Ophth Jennifer 2.5 Ml Drops EYE-BOTH 1 drop BEDTIME AMY Administration Lorazepam 0.5 mg 08/30/20 20:58 Lorazepam 0.5 Mg Tablet PO BEDTIME PRN anxiety Losartan Potassium 100 mg 08/31/20 09:00 08/31/20 09:07 Losartan Potassium 50 Mg Tablet PO 100 mg DAILY AMY Administration Protocol Multivitamins/Minerals 1 tab 08/31/20 09:00 08/31/20 09:07 Multivitamin With Minerals Tablet PO 1 tab DAILY AMY Administration Sodium Chloride 3 ml 08/31/20 00:00 08/31/20 07:27 0.9 % Sodium Chloride Flush 3 Ml Syringe IVFLUSH 3 ml QSHIFT AMY Administration Home Medications Medication Instructions Recorded Confirmed Last Taken Type Eliquis 1 tab PO BID 05/05/20 08/30/20 1 Day Ago History ~08/29/20 latanoprost 1 drp OPHTHALMIC (EYE) BEDTIME 05/05/20 08/30/20 1 Day Ago History ~08/29/20 losartan 100 mg tablet 100 mg PO DAILY 05/26/20 08/30/20 1 Day Ago History ~08/29/20 acetaminophen 500 mg tablet 500 mg PO Q6H PRN 06/14/20 08/30/20 1 Day Ago History ~08/29/20 [id number] tablet 1 tab PO DAILY 06/14/20 08/30/20 1 Day Ago History ~08/29/20 Physical Exam Vital Signs: Vital Signs: Last Vital Signs Temp 97.9 F 08/31/20 07:12 Pulse 92 08/31/20 07:12 Resp 18 08/31/20 07:12 BP 175/98 H 08/31/20 07:12 Pulse Ox 90 L 08/31/20 07:18 Body Mass Index 29.2 Const: General: cooperative, comfortable and no acute distress Orientation/consciousness: patient oriented x3 HENMT: Other: Unremarkable Neck: Neck: Yes normal visual inspection Chest: Chest palpation & inspection: normal inspection of the chest Resp: Auscultation: clear to auscultation bilaterally, no crackles and no wheezes Cardio: Jugular venous distension: no JVD Palpation: normal PMI Heart sounds: S1 normal heart sound present, S2 normal heart sound present, no gallops, no murmurs and no rubs GI: Palpation (GI): Soft to palpation Back/Spine/Pelvis: Other: unremarkable Skin: General skin exam: no rashes or lesions noted Neuro: General: patient oriented x3 Extrem: General: Yes no clubbing, cyanosis or edema Psych: Mental Status: mental status grossly normal Results Labs and Meds Result diagrams: 08/31/20 05:44 08/31/20 05:44 Lab results: Laboratory Results - last 24 hr 08/30/20 08/30/20 08/30/20 16:42 16:42 16:42 WBC 9.7 RBC 4.84 Hgb 15.5 Hct 43.6 MCV 90.1 MCH 32.0 MCHC 35.6 RDW 13.0 Plt Count 172 MPV 9.9 Immature Gran % (Auto) 0.4 Neut % (Auto) 86.9 H Lymph % (Auto) 3.9 L [place] % (Auto) 8.7 Eos % (Auto) 0.0 Baso % (Auto) 0.1 Lymph # (Auto) 0.4 L [place] # (Auto) 0.8 Eos # (Auto) 0.0 Baso # (Auto) 0.0 Abs Immat Gran (auto) 0.04 H Absolute Neuts (auto) 8.4 H Absolute Nucleated RBC 0.000 Nucleated RBC % (auto) 0.0 Smear Tech's Comments VERIFIED PT INR APTT Sodium 136 Potassium 3.2 L Chloride 98 Carbon Dioxide 26 Anion Gap 15 BUN 36 H D Creatinine 0.92 Estim Creat Clear Calc 70.8 Estimated GFR > 60 Random Glucose 118 H Lactic Acid 2.1 H* Lactic Acid Fup @ 2Hr Lactic Acid Fup @ 4Hr Calcium 8.9 D Magnesium 2.1 Ferritin 3430 H Total Bilirubin 2.2 H Direct Bilirubin 0.9 H AST 396 H ALT 145 H Alkaline Phosphatase 82 D Lactate Dehydrogenase 1215 H Total Creatine Kinase 51923 H Troponin I High Sens Total Protein 6.9 Albumin 4.0 COVID-19 ([facility]) [employer] 08/30/20 08/30/20 08/30/20 16:42 16:42 18:03 WBC RBC Hgb Hct MCV MCH MCHC RDW Plt Count MPV Immature Gran % (Auto) Neut % (Auto) Lymph % (Auto) [place] % (Auto) Eos % (Auto) Baso % (Auto) Lymph # (Auto) [place] # (Auto) Eos # (Auto) Baso # (Auto) Abs Immat Gran (auto) Absolute Neuts (auto) Absolute Nucleated RBC Nucleated RBC % (auto) Smear Tech's Comments PT 25.4 H D INR 2.1 H APTT 30.0 Sodium Potassium Chloride Carbon Dioxide Anion Gap BUN Creatinine Estim Creat Clear Calc Estimated GFR Random Glucose Lactic Acid Lactic Acid Fup @ 2Hr Lactic Acid Fup @ 4Hr Calcium Magnesium Ferritin Total Bilirubin Direct Bilirubin AST ALT Alkaline Phosphatase Lactate Dehydrogenase Total Creatine Kinase Troponin I High Sens 273.5 H D Total Protein Albumin COVID-19 ([facility]) Positive A COVID-19 [facility] See Note 08/30/20 08/30/20 08/30/20 19:14 20:13 22:58 WBC RBC Hgb Hct MCV MCH MCHC RDW Plt Count MPV Immature Gran % (Auto) Neut % (Auto) Lymph % (Auto) [place] % (Auto) Eos % (Auto) Baso % (Auto) Lymph # (Auto) [place] # (Auto) Eos # (Auto) Baso # (Auto) Abs Immat Gran (auto) Absolute Neuts (auto) Absolute Nucleated RBC Nucleated RBC % (auto) Smear Tech's Comments PT INR APTT Sodium Potassium Chloride Carbon Dioxide Anion Gap BUN Creatinine Estim Creat Clear Calc Estimated GFR Random Glucose Lactic Acid Lactic Acid Fup @ 2Hr 2.1 H* Lactic Acid Fup @ 4Hr 2.6 H* Calcium Magnesium Ferritin Total Bilirubin Direct Bilirubin AST ALT Alkaline Phosphatase Lactate Dehydrogenase Total Creatine Kinase Troponin I High Sens 216.4 H Total Protein Albumin COVID-19 ([facility]) [employer] 08/31/20 08/31/20 05:44 05:44 WBC 11.0 H RBC 4.40 L Hgb 14.0 Hct 39.7 L MCV 90.2 MCH 31.8 MCHC 35.3 RDW 13.0 Plt Count 149 L MPV 10.3 Immature Gran % (Auto) 0.3 Neut % (Auto) 89.6 H Lymph % (Auto) 3.2 L [place] % (Auto) 6.8 Eos % (Auto) 0.0 Baso % (Auto) 0.1 Lymph # (Auto) 0.4 L [place] # (Auto) 0.8 Eos # (Auto) 0.0 Baso # (Auto) 0.0 Abs Immat Gran (auto) 0.03 Absolute Neuts (auto) 9.8 H Absolute Nucleated RBC 0.000 Nucleated RBC % (auto) 0.0 Smear Tech's Comments VERIFIED PT INR APTT Sodium 140 Potassium 3.7 Chloride 104 Carbon Dioxide 24 Anion Gap 16 BUN 31 H Creatinine 0.80 Estim Creat Clear Calc 80.2 Estimated GFR > 60 Random Glucose 104 Lactic Acid Lactic Acid Fup @ 2Hr Lactic Acid Fup @ 4Hr Calcium 8.4 Magnesium Ferritin Total Bilirubin Direct Bilirubin AST ALT Alkaline Phosphatase Lactate Dehydrogenase Total Creatine Kinase Troponin I High Sens Total Protein Albumin COVID-19 ([facility]) [employer] ECG Attestation: I personally reviewed and interpreted this ECG as follows: Interpretation: EKG on admission shows underlying atrial fibrillation at a rate of 57/Min. Imaging Radiologist's impression: Impressions Head CT 08/30/20 14:46 IMPRESSION: No acute intracranial pathology. Chest X-Ray 08/30/20 14:47 IMPRESSION: Low lung volumes and bilateral infiltrates. Covid infection should be excluded. Assessment and Plan (1) Elevated troponin: Status: Acute (2) Rhabdomyolysis: Qualifiers: Rhabdomyolysis type: non-traumatic Qualified Code(s): M62.82 - Rhabdomyolysis Status: Acute (3) Pneumonia due to 2019-nCoV: Status: Acute (4) Persistent atrial fibrillation: Status: Acute Elevated troponin is most likely from the underlying rhabdomyolysis. Do not believe this is acute coronary syndrome. Anticoagulation as currently on. Blood pressure is running slightly high and may need additional meds. Otherwise, cardiac status seems stable. Procedures Date of Service Date of Service: 08/31/20
--- NOTE | 2020-08-31 11:00 | PC.NURSE ---
High fall risk Pt. A+Ox3, bilat arm tremors noted, pt. weak and requires 1 assist with walker for transfers to chair and commode, LS dim bilat, O2=2L NC, abd. soft and non-tender, voiding concentrated yellow urine, no edema noted, resting in bed, bed alarm on for safety
[2020-08-31 13:47] LABS: Troponin-I High Sensitivity 186.5 ng/L (<3.5-35.0)
[2020-08-31 14:32] LABS: Alanine Aminotransferase 150 U/L (0-40); Albumin Level 3.4 g/dL (3.5-5.0); Alkaline Phosphatase 68 U/L (39-117); Aspartate Amino Transferase 307 U/L (5-37); Bilirubin Direct 0.7 mg/dL (0.0-0.5); Bilirubin Total 1.5 mg/dL (0.0-1.0); Total Protein 5.6 g/dL (6.5-8.0)
--- NOTE | 2020-08-31 14:57 | P.CNID_ITS ---
History of Present Illness Data of Consult Service Date: 08/31/20 Requesting physician: Cam Garcia Primary Care Provider: Jeff Arreola MD [facility] Reason for consult: COVID He presents after being found on floor for 13 hours after fell due to weakness He has COVID diagnosed 08/27/2020 He has rhabdomyolysis on presentation and CPK and WBC elevated He has NHL and is weak due to this Review of Systems Review of Systems: Yes all other systems are reviewed and are negative COUNT INCLUDES THE [facility] Past Medical History Medical History (Updated 08/31/20 @ 15:09 by Charlotte Means MD) Afib Hepatitis Hypertension Hypertension Lymphoma Mass of appendix Persistent atrial fibrillation Family History Family History Father Medical history unknown Mother Medical history unknown Family history: reviewed and not pertinent Surgical History Surgical History History of biopsy History of cholecystectomy History of surgery Social History Social History Household Members: None Housing: Apartment Alcohol intake: unknown Smoking Status: Never smoker Smoked in Last 30 Days: No Use of substances other than those prescribed or required for medical reasons: No Have you been hit, kicked, punched, or otherwise hurt by someone within the past year? If so, by whom?: No Do you feel safe in your current relationship?: Yes Is there a partner from a previous relationship who is making you feel unsafe now?: No Are you made to feel afraid or neglected: No Advance Directives: Yes Advance Directives on File: Yes Advance Directives Date on File: 05/06/20 Do you have thoughts of harming others: None Do you have a plan to hurt others: No Plan Recently lost weight without trying: Unsure service: Yes Current occupational status: retired Meds Allergies Allergy/AdvReac Type Severity Reaction Status Date / Time No Known Allergies Allergy Verified 08/30/20 13:51 [No Known Allergies*] Active Medications: Current Medications Generic Name Dose Route Start Last Admin Trade Name Freq PRN Reason Stop Dose Admin Acetaminophen 650 mg 08/30/20 20:55 Acetaminophen 325 Mg Tablet PO Q6H PRN Pain, Mild (Pain Scale 1-3) Apixaban 5 mg 08/30/20 21:00 08/31/20 09:07 Apixaban 5 Mg Tablet PO 5 mg BID AMY Administration Dexamethasone 6 mg 08/31/20 09:00 08/31/20 09:07 Dexamethasone 6 Mg Tablet PO 6 mg DAILY AMY Administration Sodium Chloride 1,000 mls @ 100 mls/hr 08/30/20 21:00 08/31/20 07:30 Ns IVCONT 100 mls/hr .Q10H AMY Administration Latanoprost 1 drop 08/30/20 21:00 08/30/20 22:57 Latanoprost 0.005 % Ophth Jennifer 2.5 Ml Drops EYE-BOTH 1 drop BEDTIME AMY Administration Lorazepam 0.5 mg 08/30/20 20:58 Lorazepam 0.5 Mg Tablet PO BEDTIME PRN anxiety Losartan Potassium 100 mg 08/31/20 09:00 08/31/20 09:07 Losartan Potassium 50 Mg Tablet PO 100 mg DAILY AMY Administration Protocol Multivitamins/Minerals 1 tab 08/31/20 09:00 08/31/20 09:07 Multivitamin With Minerals Tablet PO 1 tab DAILY AMY Administration Sodium Chloride 3 ml 08/31/20 00:00 08/31/20 07:27 0.9 % Sodium Chloride Flush 3 Ml Syringe IVFLUSH 3 ml QSHIFT AMY Administration Home Medications Medication Instructions Recorded Confirmed Last Taken Type Eliquis 1 tab PO BID 05/05/20 08/30/20 1 Day Ago History ~08/29/20 latanoprost 1 drp OPHTHALMIC (EYE) BEDTIME 05/05/20 08/30/20 1 Day Ago History ~08/29/20 losartan 100 mg tablet 100 mg PO DAILY 05/26/20 08/30/20 1 Day Ago History ~08/29/20 acetaminophen 500 mg tablet 500 mg PO Q6H PRN 06/14/20 08/30/20 1 Day Ago History ~08/29/20 [id number]-[id number] tablet 1 tab PO DAILY 06/14/20 08/30/20 1 Day Ago History ~08/29/20 Physical Exam Vital Signs: Vital Signs: Last Vital Signs Temp 97.2 F 08/31/20 11:40 Pulse 68 08/31/20 11:40 Resp 20 08/31/20 11:40 BP 147/65 H 08/31/20 11:40 Pulse Ox 92 08/31/20 11:40 Body Mass Index 29.2 Const: General: cooperative HENMT: Head: Yes normal to inspection Mouth: Normal oral and palatal mucosa present Eyes: General: appearance normal, both eyes and all related structures Resp: Effort & Inspection: normal respiratory effort Cardio: Rate: regular rate Rhythm: regular rhythm GI: Palpation (GI): Soft to palpation and nontender : General: Yes no CVA tenderness Back/Spine/Pelvis: Back: no CVA tenderness Skin: General skin exam: no rashes or lesions noted Extrem: General: Yes normal to inspection Results Labs CBC & Chem 7: 08/31/20 05:44 08/31/20 05:44 Labs: Short CBC 08/30/20 08/31/20 Range/Units 16:42 05:44 WBC 9.7 11.0 H (4.8-10.8) X10*3/uL Hgb 15.5 14.0 (14.0-18.0) g/dl Hct 43.6 39.7 L (42-52) % Plt Count 172 149 L (160-400) X10*3/uL BMP 08/30/20 08/31/20 16:42 05:44 Sodium 136 140 Potassium 3.2 L 3.7 Chloride 98 104 Carbon Dioxide 26 24 BUN 36 H D 31 H Creatinine 0.92 0.80 Calcium 8.9 D 8.4 Cardiac Enzymes 08/30/20 08/31/20 Range/Units 16:42 13:03 Total Creatine Kinase 45550 H 73095 H D (38-174) U/L Liver Function 08/30/20 08/31/20 Range/Units 16:42 13:03 Total Bilirubin 2.2 H 1.5 H (0.0-1.0) mg/dL Direct Bilirubin 0.9 H 0.7 H (0.0-0.5) mg/dL AST 396 H 307 H (5-37) U/L ALT 145 H 150 H (0-40) U/L Alkaline Phosphatase 82 D 68 (39-117) U/L Albumin 4.0 3.4 L (3.5-5.0) g/dL Assessment and Plan (1) Pneumonia due to 2019-nCoV: Problem details: He has COVID recent onset (2/26) and is on 2 liters of oxygen and alert His renal function is unremarkable but however he has LFTs 10X normal with SGOT 396 There are no signs of bacterial infection Status: Acute Would stop antibiotics,no indication at this time Would not give Remdesivir as LFTs elevated Could give steroids (2) Elevated troponin: Status: Acute (3) Rhabdomyolysis: Qualifiers: Rhabdomyolysis type: non-traumatic Qualified Code(s): M62.82 - Rhabdomyolysis Status: Acute (4) Hepatitis: Status: Acute
--- NOTE | 2020-08-31 15:37 | MHC.CM.PN ---
IMM 08/31/20 MALE 74 DX COVID+ S/P FALL RHABDO. PT LIVES IN AN APT @ [facility]. He requires assist, and a walker. He is interested in STR. He declined to give preferences. His Dtr is looking into Rehabs per pt report. He will require a PT eval prior to discharge. If supplemental Oxygen can not be weaned, a home o2 eval will be needed. Dispo TBD by the Pts recovery. CM will follow to assess for discharge needs.
--- NOTE | 2020-08-31 15:55 | HO.PM.IMPN ---
Subjective Subjective Date of Service: 08/31/20 Interval History: Patient seen and examined at bedside patient was reporting feeling weak Review of Systems Constitutional : No Weight loss, No Fever, No Chills, pos Fatigue, pos Malaise ENT/Mouth : No sore throat, No Rhinorrhea Eyes: No Eye Pain, No Swelling, No Redness Cardiovascular : No Chest Pain, No SOB, No Dyspnea on Exertion, No Orthopnea, No Edema, No Palpitations Respiratory : No Cough, No Sputum, No Wheezing Gastrointestinal : No Nausea, No Vomiting, No Diarrhea, No Constipation, No abdominal Pain, No Hematochezia, No Melena Genitourinary : No Dysuria, No Urinary Frequency, No Hematuria, Musculoskeletal : No joint pain, pos Myalgias, No Joint Swelling Skin : No Skin Lesions, No rash Neuro : pos Weakness, No Numbness, No Dizziness, No Headache Psych : No Anxiety/Panic, No Depression Heme/Lymph: No Bruising, No Bleeding,No Lymphadenopathy Endocrine : No Polyuria, No Polydipsia All other systems reviewed and are negative Physical Exam Vital Signs: Vital Signs: Last Vital Signs Temp 98.4 F 08/31/20 15:20 Pulse 60 08/31/20 15:20 Resp 18 08/31/20 15:20 BP 121/55 L 08/31/20 15:20 Pulse Ox 96 08/31/20 15:20 Body Mass Index 29.2 Const: General: cooperative, comfortable and no acute distress Orientation/consciousness: patient oriented x3 HENMT: Other: Unremarkable Head: Yes normal to inspection Mouth: Normal oral and palatal mucosa present Eyes: General: appearance normal, both eyes and all related structures Neck: Neck: Yes normal visual inspection Chest: Chest palpation & inspection: normal inspection of the chest Resp: Effort & Inspection: normal respiratory effort Auscultation: clear to auscultation bilaterally, no crackles and no wheezes Cardio: Jugular venous distension: no JVD Palpation: normal PMI Rate: regular rate Rhythm: regular rhythm Heart sounds: S1 normal heart sound present, S2 normal heart sound present, no gallops, no murmurs and no rubs GI: Palpation (GI): Soft to palpation and nontender : General: Yes no CVA tenderness Back/Spine/Pelvis: Other: unremarkable Back: no CVA tenderness Skin: General skin exam: no rashes or lesions noted Neuro: General: patient oriented x3 Extrem: General: Yes normal to inspection and Yes no clubbing, cyanosis or edema Psych: Mental Status: mental status grossly normal Objective Data Current Medications Generic Name Dose Route Start Last Admin Trade Name Beto PRN Reason Stop Dose Admin Acetaminophen 650 mg 08/30/20 20:55 Acetaminophen 325 Mg Tablet PO Q6H PRN Pain, Mild (Pain Scale 1-3) Apixaban 5 mg 08/30/20 21:00 08/31/20 09:07 Apixaban 5 Mg Tablet PO 5 mg BID AMY Administration Dexamethasone 6 mg 08/31/20 09:00 08/31/20 09:07 Dexamethasone 6 Mg Tablet PO 6 mg DAILY AMY Administration Sodium Chloride 1,000 mls @ 100 mls/hr 08/30/20 21:00 08/31/20 07:30 Ns IVCONT 100 mls/hr .Q10H AMY Administration Latanoprost 1 drop 08/30/20 21:00 08/30/20 22:57 Latanoprost 0.005 % Ophth Jennifer 2.5 Ml Drops EYE-BOTH 1 drop BEDTIME AMY Administration Lorazepam 0.5 mg 08/30/20 20:58 Lorazepam 0.5 Mg Tablet PO BEDTIME PRN anxiety Losartan Potassium 100 mg 08/31/20 09:00 08/31/20 09:07 Losartan Potassium 50 Mg Tablet PO 100 mg DAILY AMY Administration Protocol Multivitamins/Minerals 1 tab 08/31/20 09:00 08/31/20 09:07 Multivitamin With Minerals Tablet PO 1 tab DAILY AMY Administration Sodium Chloride 3 ml 08/31/20 00:00 08/31/20 07:27 0.9 % Sodium Chloride Flush 3 Ml Syringe IVFLUSH 3 ml QSHIFT AMY Administration Labs CBC & Chem 7: 08/31/20 05:44 08/31/20 05:44 Assessment and Plan (1) Pneumonia due to 2019-nCoV: Status: Acute Assessment and Plan: 74-year-old male with a past medical history of hypertension, hyperlipidemia, history of non-Hodgkin's lymphoma, AFib on Eliquis presented to the hospital with a chief complaint of fall. Noted to have COVID-19 pneumonia/rhabdomyolysis/transaminitis. Admitted for further management. Acute hypoxic respiratory failure secondary to COVID-19 pneumonia continue oxygen supplementation continue isolation continue supportive management continue IV dexamethasone patient was seen by ID given significantly elevated LFT per ID patient is not candidate for remdesivir will monitor closely s/p Fall secondary to weakness and COVID infection CT head showed no acute findings. Fall precautions. PT evaluation once stable Rhabdomyolysis: Secondary to the fall CPK trending down continue IV fluids. Monitor CPK levels. Monitor renal function. Elevated troponins with flat trend likely secondary to rhabdomyolysis EKG nonischemic. Patient denies any chest pain seen by Cardiology reconciled medical management ACS less likely Transaminitis likely secondary to COVID infection LFTs little trended down monitor LFTs hepatitis panel pending ultrasound liver shows increased echogenicity History of hypertension continue losartan History of AFib: Rate controlled. Continue Eliquis. DVT prophylaxis: Eliquis Code status: DNR/DNI.
[2020-08-31 17:39] LABS: Glucose Urine UA 100 MG/DL (NEG); Leukocyte Esterase Urine NEG (NEG); Nitrite Urine NEG (NEG); PH 6.5 (5.0-8.0); Urine Blood 2+ (NEG); Urine Ketones NEG (NEG); Urine Protein TRACE MG/DL (NEG-TRACE)
[2020-08-31 17:49] LABS: Appearance Urine HAZY; Bacteria Urine 1+ /LPF; Color Urine YELLOW; RBC Urine 30-49 /HPF (0); Squamous Epithelial Cell Urine 1+ /LPF
[2020-08-31] MEDS: Latanoprost 0.005 % Ophth Sol 2.5 ML DROPS 1 DROP EYE-BOTH (21:11)
[2020-09-01] VITALS (9 sets, daily range): BP systolic 145–199; BP diastolic 67–87; PULSE 53–110; RESP 18–35; TEMP 36.1–37.6; O2SAT 89–100
[2020-09-01] MEDS: LORazepam 0.5 MG TABLET PO ×2 (01:19→22:24)
[2020-09-01] MEDS: 0.9 % Sodium Chloride 1,000 ML 100 ML IVCONT (02:22)
[2020-09-01 05:44] LABS: Alanine Aminotransferase 145 U/L (0-40); Albumin Level 3.2 g/dL (3.5-5.0); Alkaline Phosphatase 60 U/L (39-117); Anion Gap 11 (12-20); Aspartate Amino Transferase 241 U/L (5-37); Bilirubin Total 1.4 mg/dL (0.0-1.0); Blood Urea Nitrogen 29 mg/dL (9-16); Calcium 7.7 mg/dL (8.4-10.2); Carbon Dioxide 24 mmol/L (22-29); Chloride 105 mmol/L (96-108); Creatinine Clr Calc Pharmacy 87.9; Estimated Glomerular Filt Rate > 60; Glucose Random 136 mg/dL (60-115); Potassium 3.2 mmol/L (3.3-5.1); Sodium 137 mmol/L (135-145); Total Protein 5.4 g/dL (6.5-8.0)
[2020-09-01] MEDS: Losartan Potassium 50 MG TABLET 100 MG PO (08:15)
[2020-09-01] MEDS: Apixaban 5 MG TABLET PO ×2 (08:15→20:29)
[2020-09-01] MEDS: dexAMETHasone 6 MG TABLET PO (08:16)
[2020-09-01 08:17] LABS: HBc Num1 0.04 S/CO (0.00-0.79); Hepatitis A Antibody IgM 0.11 Index (0-0.79); Hepatitis B Core Antibody Nonreactive (Nonreactive); ~Hepatitis A Antibody IgM Nonreactive (Nonreactive); ~Hepatitis B Surface Antibody NONREACTIVE (Nonreactive)
[2020-09-01] MEDS: 0.9 % Sodium Chloride Flush 3 ML SYRINGE IVFLUSH ×2 (08:21→20:30)
[2020-09-01 08:59] LABS: HBsAGNum1 0.18 S/CO (0.00-0.99); Hepatitis B Surface Antigen Negative (Negative); ~HepC Num1 0.06 S/CO (0.00-0.79); ~Hepatitis C Antibody Nonreactive (Nonreactive)
--- NOTE | 2020-09-01 10:14 | PC.NURSE ---
Pt. A+Ox3, denies pain, LS dim bilat, was on venti mask at 55% but changed to 15L NC so patient could eat breakfast, sats in low 90s, OOB with 1 assist and walker, mild weakness noted, no edema, resting in recliner, will continue to monitor
[2020-09-01] MEDS: Fluticasone Propionate Nasal 16 GM SPRAY 2 SPRAY NOSTRIL-B (10:20)
[2020-09-01] MEDS: Potassium Chloride ER 20 MEQ TAB.ER.PRT 40 MEQ PO (10:20)
--- NOTE | 2020-09-01 10:34 | PM.PNNEP ---
Subjective Subjective Date of Service: 09/01/20 Interval history: Events ntoed Non Oliguric Physical Exam Vital Signs: Vital Signs: Last Vital Signs Temp 98.5 F 09/01/20 07:42 Pulse 65 09/01/20 08:15 Resp 31 H 09/01/20 07:42 BP 155/67 H 09/01/20 08:15 Pulse Ox 96 09/01/20 07:42 Body Mass Index 29.2 Objective Data Labs CBC & Chem 7: 08/31/20 05:44 09/01/20 04:25 Labs: Laboratory Results - last 24 hr 08/30/20 08/31/20 08/31/20 22:57 13:03 13:03 Sodium Potassium Chloride Carbon Dioxide Anion Gap BUN Creatinine Estim Creat Clear Calc Estimated GFR Random Glucose Calcium Total Bilirubin 1.5 H Direct Bilirubin 0.7 H AST 307 H ALT 150 H Alkaline Phosphatase 68 Total Creatine Kinase 25974 H D Troponin I High Sens 186.5 H Total Protein 5.6 L Albumin 3.4 L Urine Color Urine Appearance Urine pH Ur Specific [place] Urine Protein Urine Glucose (UA) Urine Ketones Urine Blood Urine Nitrite Ur Leukocyte Esterase Urine RBC Urine WBC Ur Squamous Epith Cells Urine Bacteria Hepatitis A IgM Ab Nonreactive Hep Bs Antigen Negative Hep Bs Antibody NONREACTIVE Hep B Core Total Ab Nonreactive Hepatitis C Ab (EIA) Nonreactive 08/31/20 09/01/20 Unknown 04:25 Sodium 137 Potassium 3.2 L Chloride 105 Carbon Dioxide 24 Anion Gap 11 L BUN 29 H Creatinine 0.73 Estim Creat Clear Calc 87.9 Estimated GFR > 60 Random Glucose 136 H Calcium 7.7 L D Total Bilirubin 1.4 H Direct Bilirubin AST 241 H ALT 145 H Alkaline Phosphatase 60 Total Creatine Kinase 7517 H Troponin I High Sens Total Protein 5.4 L Albumin 3.2 L Urine Color YELLOW Urine Appearance HAZY Urine pH 6.5 Ur Specific [place] 1.020 Urine Protein TRACE Urine Glucose (UA) 100 H Urine Ketones NEG Urine Blood 2+ H Urine Nitrite NEG Ur Leukocyte Esterase NEG Urine RBC 30-49 H Urine WBC 1-4 Ur Squamous Epith Cells 1+ Urine Bacteria 1+ Hepatitis A IgM Ab Hep Bs Antigen Hep Bs Antibody Hep B Core Total Ab Hepatitis C Ab (EIA) Microbiology Microbiology Results: Microbiology 08/30/20 16:59 Blood - Venous Blood Culture - Preliminary No growth after 24 hours. 08/30/20 16:42 Blood - Venous Blood Culture - Preliminary No growth after 24 hours. Assessment & Plan Assessment and plan (1) Rhabdomyolysis: Problem details: CPK is trending down Renal function is stable Replace K Shall stop following Thanks Status: Acute Time Spent With Patient Time: Total time spent is greater than 50% in coordination of care (as documented) at patient's floor/unit and/or counseling patient: Procedures Date of Service Date of Service: 09/01/20
--- NOTE | 2020-09-01 10:34 | CONS_ITS ---
DATE OF SERVICE: 08/31/2020 REASON FOR CONSULTATION: I was called to see this patient to assist in the management of rhabdomyolysis. HISTORY OF PRESENT ILLNESS: To summarize, Sean is well known to us. He has a history of hypertension and history of rhabdomyolysis in the past. His renal function has been stable. He comes into the hospital again because of a fall he says he was on the floor for almost 11 hours. At the time of admission, he had a serum CPK level of around 23,000, serum creatinine was at baseline around 0.6 to 0.8 mg/dL. He has been started on IV fluids and consultation requested for management of rhabdomyolysis. PAST MEDICAL HISTORY: Ongoing medical problems include history of hypertension, hyperlipidemia, atrial fibrillation on Eliquis, history of non-Hodgkin's lymphoma, history of rhabdomyolysis in the past. FAMILY HISTORY: Not significant for this admission. PAST SURGICAL HISTORY: Significant for cholecystectomy. SOCIAL HISTORY: He lives in apartment. No history of smoking or alcohol abuse. No drug abuse. ALLERGIES: NO KNOWN DRUG ALLERGIES DOCUMENTED. MEDICATIONS: Active medications include Tylenol, apixaban, lorazepam, losartan, multivitamins. REVIEW OF SYSTEMS: No headache, nausea, or vomiting. He has no urinary symptoms. No dark urine. No edema. No fever. No rash. No diarrhea. All other systems were reviewed. PHYSICAL EXAMINATION: GENERAL: Sean is an elderly man, who is comfortable, sitting up in a chair, not in any distress. NECK: Supple. No JVD. VITAL SIGNS: Blood pressure today was 170/98, pulse 92, temperature 97.9. NECK: Supple. No JVD. HEENT: Mucosa is dry. LUNGS: Air entry equal. No rales. HEART: S1, S2 heard. No gallop. No rub. ABDOMEN: Soft, nontender. EXTREMITIES: No significant edema. There are some bruits. NEUROLOGIC: Alert and awake. No asterixis. No focal deficits. LABORATORY DATA: WBC 11.0, hemoglobin 14.0, platelets 149,000. Sodium nl,, BUN 31, creatinine 0.8, lactic acid 2.6, calcium 8.4. Troponin 216. CPK level was [address]. IMPRESSION: 74-year-old man with hypertension and non-Hodgkin's lymphoma, comes in with a fall and has sustained rhabdomyolysis without any evidence of pigment nephropathy. RECOMMENDATIONS: My recommendation is to obtain a spot urine for urinalysis and urine protein-creatinine ratio. In the meantime, we will continue to hydrate him and keep intake more than the output. There is no clear role for IV bicarbonate at this time. We will certainly rule out hypophosphatemia and make sure his potassium will maintain in the normal range. We will continue to monitor renal function closely and trend the CPK over the next few days. Thank you for asking me to see this patient. Jarvis Hutson MD BPA/MODL / [id number] MTDD
--- NOTE | 2020-09-01 11:02 | MHC.CM.PN ---
Per ROUNDS discussion, Patient is not yet medically cleared for dc (Elevated LFT's, Significant amount of O2). STR is the goal for dc, pending PT eval and CM will continue to follow for possible need to adjust the dc plan.
--- NOTE | 2020-09-01 15:06 | P.PNIM_ITS ---
Subjective Subjective Date of Service: 09/01/20 Interval History: Patient seen and examined at bedside patient was reporting feeling weak patient became more hypoxic overnight currently requiring 15 L of Oxygen Review of Systems Constitutional : pos Fatigue, pos Malaise ENT/Mouth : No sore throat, No Rhinorrhea Eyes: No Eye Pain, No Swelling, No Redness Cardiovascular : No Chest Pain, No SOB, No Dyspnea on Exertion, No Orthopnea, No Edema, No Palpitations Respiratory : Cough, No Sputum, No Wheezing Gastrointestinal : No Nausea, No Vomiting, No Diarrhea, No Constipation, No abdominal Pain, No Hematochezia, No Melena Genitourinary : No Dysuria, No Urinary Frequency, No Hematuria, Musculoskeletal : No joint pain, pos Myalgias, No Joint Swelling Skin : No Skin Lesions, No rash Neuro : pos Weakness, No Numbness, No Dizziness, No Headache Psych : No Anxiety/Panic, No Depression Heme/Lymph: No Bruising, No Bleeding,No Lymphadenopathy Endocrine : No Polyuria, No Polydipsia All other systems reviewed and are negative Physical Exam Vital Signs: Vital Signs: Last Vital Signs Temp 99.6 F 09/01/20 11:14 Pulse 56 09/01/20 11:14 Resp 35 H 09/01/20 11:14 BP 153/67 H 09/01/20 12:26 Pulse Ox 98 09/01/20 11:20 Body Mass Index 29.2 Const: General: cooperative, comfortable and no acute distress Orientati on/consciousness: patient oriented x3 HENMT: Other: Unremarkable Head: Yes normal to inspection Mouth: Normal oral and palatal mucosa present Eyes: General: appearance normal, both eyes and all related structures Neck: Neck: Yes normal visual inspection Chest: Chest palpation & inspection: normal inspection of the chest Resp: Effort & Inspection: normal respiratory effort Auscultation: clear to auscultation bilaterally, no crackles and no wheezes Cardio: Jugular venous distension: no JVD Palpation: normal PMI Rate: regular rate Rhythm: regular rhythm Heart sounds: S1 normal heart sound present, S2 normal heart sound present, no gallops, no murmurs and no rubs GI: Palpation (GI): Soft to palpation and nontender : General: Yes no CVA tenderness Back/Spine/Pelvis: Other: unremarkable Back: no CVA tenderness Skin: General skin exam: no rashes or lesions noted Neuro: General: patient oriented x3 Extrem: General: Yes normal to inspection and Yes no clubbing, cyanosis or edema Psych: Mental Status: mental status grossly normal Objective Data Current Medications Generic Name Dose Route Start Last Admin Trade Name Beto PRN Reason Stop Dose Admin Acetaminophen 650 mg 08/30/20 20:55 Acetaminophen 325 Mg Tablet PO Q6H PRN Pain, Mild (Pain Scale 1-3) Apixaban 5 mg 08/30/20 21:00 09/01/20 08:15 Apixaban 5 Mg Tablet PO 5 mg BID AMY Administration Dexamethasone 6 mg 08/31/20 09:00 09/01/20 08:16 Dexamethasone 6 Mg Tablet PO 6 mg DAILY AMY Administration Fluticasone Propionate 2 spray 09/01/20 01:30 09/01/20 10:20 Fluticasone Propionate Nasal 16 Gm [place] NOSTRIL-B 2 spray DAILY AMY Administration Latanoprost 1 drop 08/30/20 21:00 08/31/20 21:11 Latanoprost 0.005 % Ophth Jennifer 2.5 Ml Drops EYE-BOTH 1 drop BEDTIME AMY Administration Lorazepam 0.5 mg 08/30/20 20:58 09/01/20 01:19 Lorazepam 0.5 Mg Tablet PO 0.5 mg BEDTIME PRN Administration anxiety Losartan Potassium 100 mg 08/31/20 09:00 09/01/20 08:15 Losartan Potassium 50 Mg Tablet PO 100 mg DAILY AMY Administration Protocol Multivitamins/Minerals 1 tab 08/31/20 09:00 09/01/20 08:16 Multivitamin With Minerals Tablet PO 1 tab DAILY AMY Administration Sodium Chloride 3 ml 08/31/20 00:00 09/01/20 14:50 0.9 % Sodium Chloride Flush 3 Ml Syringe IVFLUSH Not Given QSHIFT [facility] Labs CBC & Chem 7: 08/31/20 05:44 09/01/20 04:25 Microbiology Microbiology Results: Microbiology 08/30/20 16:59 Blood - Venous Blood Culture - Preliminary No growth after 24 hours. 08/30/20 16:42 Blood - Venous Blood Culture - Preliminary No growth after 24 hours. Assessment and Plan (1) Rhabdomyolysis: Status: Acute (2) Pneumonia due to 2019-nCoV: Status: Acute Assessment and Plan: 74-year-old male with a past medical history of hypertension, hyperlipidemia, history of non-Hodgkin's lymphoma, AFib on Eliquis presented to the hospital with a chief complaint of fall. Noted to have COVID-19 pneumonia/rhabdo myolysis/transaminitis. Admitted for further management. Acute hypoxic respiratory failure secondary to COVID-19 pneumonia continue oxygen supplementation overnight became more hypoxic placed on 15 L of oxygen continue isolation continue supportive management continue IV dexamethasone patient was seen by ID given significantly elevated LFT per ID patient is not candidate for remdesivir will monitor closely s/p Fall secondary to weakness and COVID infection CT head showed no acute findings. Fall precautions. PT evaluation once stable Rhabdomyolysis: Secondary to the fall improving [place] [address] to 7500 received IV fluid Monitor CPK levels. Monitor renal function. Elevated troponins with flat trend likely secondary to rhabdomyolysis EKG nonischemic. Patient denies any chest pain seen by Cardiology reconciled medical management ACS less likely Transaminitis likely secondary to COVID infection LFTs little trending down monitor LFTs hepatitis panel negative ultrasound liver shows increased echogenicity hypokalemia replaced monitor electrolytes History of hypertension continue losartan History of AFib: Rate controlled. Continue Eliquis. DVT prophylaxis: Eliquis Code status: DNR/DNI.
[2020-09-01] MEDS: Latanoprost 0.005 % Ophth Sol 2.5 ML DROPS 1 DROP EYE-BOTH (20:30)
[2020-09-02] VITALS (9 sets, daily range): BP systolic 158–178; BP diastolic 64–82; PULSE 50–75; RESP 18–36; TEMP 36–37.2; O2SAT 92–100; BMI 30.4
--- NOTE | 2020-09-02 02:27 | MHC.PIE ---
p - pt had mod amt of thick maroon sputum x1 approx 10pm s/p eloquis administered as ordered. then proceeded to have persistent dry npc i - notified hospitalist of bloody sputum & persistent cough. orders received for CTA of chest, robitussin & tesselon pearls & hold eloquis. once available, medicated with robitussin & tesselon pearls, nsg supv notified. e - will continue to monitor
--- NOTE | 2020-09-02 02:27 | PM.EVENT ---
Event Note Date of Service: 09/02/20 Event Note: Hemoptysis: Patient had an episode of hemoptysis. History stable. Vitals stable. Will continue to monitor. Will obtain CT chest. Consult pulmonology Will hold Eliquis until further input from pulmonology. Will sign out to the a.m. team.
[2020-09-02] MEDS: Benzonatate 100 MG CAPSULE PO ×2 (02:45→15:17)
[2020-09-02] MEDS: guaiFEN/Codeine SF 200/20/10ML 10 ML LIQUID 5 ML PO ×2 (02:56→15:17)
--- NOTE | 2020-09-02 03:26 | PC.NURSE ---
0315 attempt to bring pt to ct scan on 100% NRB portable tank @ 25L -pt did not tolerate, i.e., desat to 79-81% with shield pt reports unable to lie flat i - call to R.T. & return to room 471 & attached to wall o2 15L 100% nrb. e - continue to monitor - & attempt in am, providing pt does not expectorate bloody sputum again. s/p tessedaniel rdz & robitussin ac 5ml po, pt with somewhat slowing cough. continue to assess
[2020-09-02 07:15] LABS: Alanine Aminotransferase 149 U/L (0-40); Albumin Level 3.3 g/dL (3.5-5.0); Alkaline Phosphatase 92 U/L (39-117); Aspartate Amino Transferase 173 U/L (5-37); Bilirubin Total 1.5 mg/dL (0.0-1.0); Blood Urea Nitrogen 29 mg/dL (9-16); Creatinine Clr Calc Pharmacy 96.1; Estimated Glomerular Filt Rate > 60; Glucose Random 157 mg/dL (60-115); Total Protein 5.6 g/dL (6.5-8.0)
[2020-09-02 08:05] LABS: Anion Gap 16 (12-20); Carbon Dioxide 19 mmol/L (22-29); Chloride 107 mmol/L (96-108); Potassium 4.2 mmol/L (3.3-5.1); Sodium 138 mmol/L (135-145)
[2020-09-02] MEDS: 0.9 % Sodium Chloride Flush 3 ML SYRINGE IVFLUSH ×3 (08:12→20:06)
[2020-09-02] MEDS: Losartan Potassium 50 MG TABLET 100 MG PO (09:05)
[2020-09-02] MEDS: dexAMETHasone 6 MG TABLET PO (09:07)
[2020-09-02] MEDS: iohexoL 350 MG/ML 75 ML INFUS..BTL IV (10:56)
--- NOTE | 2020-09-02 13:39 | P.PNIM_ITS ---
Subjective Subjective Date of Service: 09/02/20 Interval History: Patient seen and examined at bedside patient was reporting feeling weak patient currently requiring high-flow Review of Systems Constitutional : pos Fatigue, pos Malaise ENT/Mouth : No sore throat, No Rhinorrhea Eyes: No Eye Pain, No Swelling, No Redness Cardiovascular : No Chest Pain, No SOB, No Dyspnea on Exertion, No Orthopnea, No Edema, No Palpitations Respiratory : Cough, No Sputum, No Wheezing Gastrointestinal : No Nausea, No Vomiting, No Diarrhea, No Constipation, No abdominal Pain, No Hematochezia, No Melena Genitourinary : No Dysuria, No Urinary Frequency, No Hematuria, Musculoskeletal : No joint pain, pos Myalgias, No Joint Swelling Skin : No Skin Lesions, No rash Neuro : pos Weakness, No Numbness, No Dizziness, No Headache Psych : No Anxiety/Panic, No Depression Heme/Lymph: No Bruising, No Bleeding,No Lymphadenopathy Endocrine : No Polyuria, No Polydipsia All other systems reviewed and are negative Physical Exam Vital Signs: Vital Signs: Last Vital Signs Temp 97.8 F 09/02/20 12:00 Pulse 63 09/02/20 12:00 Resp 36 H 09/02/20 12:00 BP 176/80 H 09/02/20 12:00 Pulse Ox 100 09/02/20 12:00 Body Mass Index 30.4 Const: General: cooperative, comfortable and no acute distress Orientation/consciousness: patient oriented x3 HENMT: Head: Yes normal to inspection Mouth: Normal oral and palatal mucosa present Eyes: General: appearance normal, both eyes and all related structures Neck: Neck: Yes normal visual inspection Chest: Chest palpation & inspection: normal inspection of the chest Resp: Effort & Inspection: normal respiratory effort Auscultation: clear to auscultation bilaterally, no crackles and no wheezes Cardio: Jugular venous distension: no JVD Palpation: normal PMI Rate: regular rate Rhythm: regular rhythm Heart sounds: S1 normal heart sound present, S2 normal heart sound present, no gallops, no murmurs and no rubs GI: Palpation (GI): Soft to palpation and nontender : General: Yes no CVA tenderness Back/Spine/Pelvis: Other: unremarkable Back: no CVA tenderness Skin: General skin exam: no rashes or lesions noted Neuro: General: patient oriented x3 Extrem: General: Yes normal to inspection and Yes no clubbing, cyanosis or edema Psych: Mental Status: mental status grossly normal Objective Data Current Medications Generic Name Dose Route Start Last Admin Trade Name Freq PRN Reason Stop Dose Admin Acetaminophen 650 mg 08/30/20 20:55 Acetaminophen 325 Mg Tablet PO Q6H PRN Pain, Mild (Pain Scale 1-3) Apixaban 5 mg 08/30/20 21:00 09/01/20 20:29 Apixaban 5 Mg Tablet PO 5 mg BID AMY Administration Benzonatate 100 mg 09/02/20 02:25 09/02/20 02:45 Benzonatate 100 Mg Capsule PO 100 mg TID PRN Administration Cough Dexamethasone 6 mg 08/31/20 09:00 09/02/20 09:07 Dexamethasone 6 Mg Tablet PO 6 mg DAILY AMY Administration Fluticasone Propionate 2 spray 09/01/20 01:30 09/02/20 09:58 Fluticasone Propionate Nasal 16 Gm [place] NOSTRIL-B Not Given DAILY [facility] Guaifenesin/Codeine Phosphate 5 ml 09/02/20 02:40 09/02/20 02:56 Guaifen/Codeine Sf 200/20/10ml 10 Ml Liquid PO 5 ml Q6H PRN Administration Cough Latanoprost 1 drop 08/30/20 21:00 09/01/20 20:30 Latanoprost 0.005 % Ophth Jennifer 2.5 Ml Drops EYE-BOTH 1 drop BEDTIME AMY Administration Lorazepam 0.5 mg 08/30/20 20:58 09/01/20 22:24 Lorazepam 0.5 Mg Tablet PO 0.5 mg BEDTIME PRN Administration anxiety Losartan Potassium 100 mg 08/31/20 09:00 09/02/20 09:05 Losartan Potassium 50 Mg Tablet PO 100 mg DAILY [facility] Administration Protocol Multivitamins/Minerals 1 tab 08/31/20 09:00 09/02/20 09:07 Multivitamin With Minerals Tablet PO 1 tab DAILY [facility] Administration Sodium Chloride 3 ml 08/31/20 00:00 09/02/20 08:12 0.9 % Sodium Chloride Flush 3 Ml Syringe IVFLUSH 3 ml QSHIFT [facility] Administration Labs CBC & Chem 7: 08/31/20 05:44 09/02/20 05:35 Microbiology Microbiology Results: Microbiology 08/30/20 16:59 Blood - Venous Blood Culture - Preliminary No growth after 48 hours. 08/30/20 16:42 Blood - Venous Blood Culture - Preliminary No growth after 48 hours. Assessment and Plan (1) Rhabdomyolysis: Status: Acute (2) Pneumonia due to 2019-nCoV: Status: Acute Assessment and Plan: 74-year-old male with a past medical history of hypertension, hyperlipidemia, history of non-Hodgkin's lymphoma, AFib on Eliquis presented to the hospital with a chief complaint of fall. Noted to have COVID-19 pneumonia/rhabdomyoly sis/transaminitis. Admitted for further management. Acute hypoxic respiratory failure secondary to COVID-19 pneumonia continue oxygen supplementation Continue high-flow continue isolation continue supportive management continue IV dexamethasone patient was seen by ID given significantly elevated LFT per ID patient is not candidate for remdesivir will monitor closely Pulmonology following CTA chest was done shows diffuse opacities but no pulmonary embolism s/p Fall secondary to weakness and COVID infection CT head showed no acute findings. Fall precautions. PT evaluation once stable Rhabdomyolysis: Secondary to the fall improving [place] [address] >7500 >4000 received IV fluid Monitor CPK levels. Monitor renal function. Elevated troponins with flat trend likely secondary to rhabdomyolysis EKG nonischemic. Patient denies any chest pain seen by Cardiology reconciled medical management ACS less likely Transaminitis likely secondary to COVID infection LFTs little trending down monitor LFTs hepatitis panel negative ultrasound liver shows increased echogenicity hypokalemia replaced improved monitor electrolytes History of hypertension continue losartan History of AFib: Rate controlled. Continue Eliquis. DVT prophylaxis: Eliquis Code status: DNR/DNI.
[2020-09-02] MEDS: methylPREDNISolone Sod Succ/PF 125 MG/2 ML VIAL IVPUSH ×2 (17:44→22:49)
[2020-09-02] MEDS: Doxycycline Hyclate 100 MG in 0.9 % Sodium Chloride 250 ML 166.67 MG IV (17:44)
--- NOTE | 2020-09-02 18:24 | MHC.PIE ---
Patient had a 6 beat of Vtach. Patient assessed , asymptomatic . Dr Garcia notified . Will continue monitor, and report any changes.
--- NOTE | 2020-09-02 18:48 | CONS_ITS ---
DATE OF SERVICE: 09/02/2020 CHIEF COMPLAINT: Fall and shortness of breath. HISTORY OF PRESENT ILLNESS: Mr. Hilton is a 74-year-old gentleman with known history of hypertension, hyperlipidemia, atrial fibrillation on Eliquis, in addition to history of non-Hodgkin's lymphoma, who apparently has been previously admitted at [facility] back on August 28 while developing weakness, cough, and fevers. The patient tested positive for COVID-19 and was treated appropriately at [facility]. Also of note, the patient did receive his initial COVID-19 vaccination. The patient subsequently discharged home, however, subsequently falling and he was brought back to the [facility]. Upon arrival to the ER, the patient was found to have rhabdomyolysis due to prolonged period down and also elevations in the cardiac enzymes and significant hypoxia. He was admitted to the COVID unit. Overnight, the patient did have episodes of coughing up blood and subsequently his Eliquis stopped. The CT scan of the chest was ordered and Pulmonary was consulted. When I did see him in the morning, the patient denies any further coughing up any blood. He is using the non-rebreather and is difficult to completely understand him. He did undergo a CT scan of the chest that was personally reviewed by me demonstrating extensive ground-glass opacities throughout the upper mid and lower lung zones. This appears to be extensive and to some degree concerning for some component of diffuse alveolar hemorrhage in addition to his COVID infection. The patient was started on Decadron, currently speaking in full sentences with a non-rebreather. REVIEW OF SYSTEMS: Ten systems reviewed. Complains of the constitutional symptoms as stated above. Complains of the respiratory symptoms as stated above. Denies any chest pains. Denies any GI or discomfort. Denies any musculoskeletal discomfort. The rest of 10-organ system is negative. Denies any rashes. PAST MEDICAL HISTORY: Atrial fibrillation on Eliquis, hypertension, hyperlipidemia, history of non-Hodgkin's lymphoma, and mass of the appendix, unclear the etiology. FAMILY HISTORY: Positive for high blood pressure. PAST SURGICAL HISTORY: History of biopsy, cholecystectomy. SOCIAL HISTORY: He is a never smoker. ALLERGIES: PLEASE REFER TO THE [facility] FOR THE FULL LIST INCLUDING NO KNOWN DRUG ALLERGIES. CURRENT MEDICATIONS: Please refer to the [facility] for the full list. His Eliquis is on hold. Lorazepam, losartan, multivitamins, fluticasone, benzonatate, guaifenesin with codeine, dexamethasone 6 mg daily IV. PHYSICAL EXAMINATION: VITAL SIGNS: Stable. Saturating initially low 90s on a non-rebreather. GENERAL: Pleasant gentleman, in no acute distress. HEENT: Pupils equal and reactive to light. Oropharynx is clear. NECK: Supple. LUNGS: Diminished. CARDIAC: Regular rhythm, regular rate. No extra heart sounds. ABDOMEN: Positive bowel sounds. Soft. EXTREMITIES: No clubbing or cyanosis. LABORATORY DATA: Again, his COVID-19 tested positive again. His white count is up to 11, platelet count 149. Hemoglobin is stable. He does have lymphopenia. Chemistries significant for a bicarb of 19 and anion gap of 16. CPK was elevated due to his fall. IMMUNOLOGY: Imaging studies perceived by me. CT scan of the chest negative for PE, negative for thoracic aortic dissection, bilateral diffuse patchy ground-glass opacities concerning due to the extent. I also has lymphadenopathy, but he also has history of non-Hodgkin's lymphoma. ASSESSMENT: Mr. Hilton is a 74-year-old gentleman, diagnosed with COVID-19 back at the end of August, now with worsening respiratory failure, found to have hemoptysis. IMPRESSION: 1. Acute hypoxic respiratory failure secondary to extensive airspace disease, likely from COVID, ARDS, although diffuse alveolar hemorrhage is also in differential. Although the patient did not have any significant hemoptysis, indeed he may have further amount of bleb burden in the airways and air sacs that cannot be appreciated at this time. 2. Hemoptysis as stated above, some component of bland DAH. 3. Lymphadenopathy likely from the non-Hodgkin's lymphoma history, although could also be reactive from a secondary infection. RECOMMENDATIONS: 1. Continue holding the Eliquis for now. Consider adding Lovenox 40mg daily for now 2. The patient may benefit from additional corticosteroid therapy and concern that is progressing fairly fast. Will change to pulse dose methylprednisolone x 3 days 3. Start doxycycline to treat for postviral bacterial infections. 4. Consider high flow if his condition is worsening. 5. The patient is already DNR/DNI, and we will continue monitoring the patient closely. MD ANAID Mackenzie/MARIA DE JESUS / [id number] JAYDA
[2020-09-02] MEDS: Latanoprost 0.005 % Ophth Sol 2.5 ML DROPS 1 DROP EYE-BOTH (20:04)
[2020-09-02] MEDS: LORazepam 0.5 MG TABLET PO (22:15)
--- NOTE | 2020-09-02 23:13 | P.EN_ITS ---
Event Note Date of Service: 09/03/20 Event Note: Rapid response note: At around 11:00 p.m. on 09/02/2020: RN called DIAPHRAGM BUILDER mentioned that patient unable to deviate his eyes to the left bilaterally. I went in and examined the patient. Patient is alert, awake, follows commands. Sensations intact, able to move the bilateral lower extremities equally, able to squeeze equally on bilateral hands; patient able to recognize right and left-sided. Pupils are equal and reactive. But patient unable to move eyes to the left side bilaterally. Patient able to count the fingers. Denies any headaches or blurry visions. Patient denied any chest pain palpitations lightheadedness or dizziness. pt denies nay eye pain; no Conjunctival hyperemia noted. On vitals patient noted to have systolic blood pressure in 190s. Saturating well on Ventimask. Does not seem to be in respiratory distress. per RN pt was last well know 10 min before episode. Patient is off Eliquis since episode of hemoptysis last night. ?lateral rectus palsy: Ordered a stat CT head with stroke protocol-no Acute findings noted. Spoke to on-call Neurology Dr Jolley-> mentioned given hemoptysis episode; NO tPA recommended. Neurology consult. at 12:10 AM on 09/03/20; RN reported that his symptoms Resolved and now able to deviate eyes to left side. HTN urgency: labetelol prn
[2020-09-02 23:46] LABS: Basophils Percent Auto 0.1 % (0-2); Hematocrit 39.5 % (42-52); Hemoglobin 13.9 g/dl (14.0-18.0); Imm Gran Abs Auto 0.12 X10*3/uL (0.00-0.03); Imm Gran Pct Auto 0.8 % (0.0-0.4); Lymphocytes Absolute Auto 0.4 X10*3/uL (1.2-4.9); Lymphocytes Percent Auto 2.3 % (20-40); MANUAL DIFF FLAG SCAN; Mean Corpuscular HGB Conc 35.2 g/dl (31.0-36.0); Mean Corpuscular Hemoglobin 31.8 pg (27.0-33.0); Mean Corpuscular Volume 90.4 fL (80-98); Monocytes Absolute Auto 0.4 X10*3/uL (0.1-1.2); Monocytes Percent Auto 2.6 % (2-11); Neutrophils Percent Auto 94.2 % (45-73); Platelet Count 101 X10*3/uL (160-400); Red Blood Count 4.37 X10*6/uL (4.60-5.80); Red Cell Distribution Width 13.4 % (11.0-16.0); SCAN SMEAR FLAG 1; White Blood Count 15.9 X10*3/uL (4.8-10.8)
[2020-09-03] VITALS (11 sets, daily range): BP systolic 139–204; BP diastolic 75–106; PULSE 66–92; RESP 18–36; TEMP 36–37.3; O2SAT 90–98; BMI 30.4
--- NOTE | 2020-09-03 | ECG_ITS ---
Test Reason : nsvt Blood Pressure : / mmHG Vent. Rate : 072 BPM Atrial Rate : 441 BPM P-R Int : 000 ms QRS Dur : 058 ms QT Int : 374 ms P-R-T Axes : 000 024 061 degrees QTc Int : 409 ms Atrial fibrillation Septal infarct (cited on or before 03-SEP-2020) Inferolateral injury pattern ACUTE [place] / STEMI Consider right ventricular involvement in acute inferior infarct Abnormal ECG When compared with ECG of 03-SEP-2020 03:15, Significant changes present Referred By: Raleigh Serra Electronically Signed By: MARCELINO MONTELONGO
--- NOTE | 2020-09-03 | ECG_ITS ---
Test Reason : STEMI Blood Pressure : / mmHG Vent. Rate : 074 BPM Atrial Rate : 070 BPM P-R Int : 000 ms QRS Dur : 060 ms QT Int : 378 ms P-R-T Axes : 000 004 028 degrees QTc Int : [address] elevation consider inferior injury or acute infarct ACUTE [place] / STEMI Abnormal ECG When compared with ECG of 03-SEP-2020 03:16, No significant changes seen Referred By: Marcelino Batista Electronically Signed By:MARCELINO BATISTA
[2020-09-03] MEDS: guaiFEN/Codeine SF 200/20/10ML 10 ML LIQUID 5 ML PO (00:01)
[2020-09-03] MEDS: Benzonatate 100 MG CAPSULE PO (00:01)
[2020-09-03 00:04] LABS: SLIDE REVIEW VERIFIED
--- NOTE | 2020-09-03 00:04 | PC.RT ---
rapid response called due to pt. couhging up blood and not able to follow commands. pt SATS in 90s during the rapid. possible stroke transported to ct scan.
[2020-09-03 00:11] LABS: Anion Gap 13 (12-20); Blood Urea Nitrogen 30 mg/dL (9-16); Calcium 8.6 mg/dL (8.4-10.2); Carbon Dioxide 22 mmol/L (22-29); Chloride 106 mmol/L (96-108); Creatinine Clr Calc Pharmacy 89.5; Estimated Glomerular Filt Rate > 60; Glucose Random 207 mg/dL (60-115); Potassium 4.1 mmol/L (3.3-5.1); Sodium 137 mmol/L (135-145)
[2020-09-03] MEDS: Labetalol HCL 100 MG/20 ML VIAL 10 MG IVPUSH (00:48)
[2020-09-03] MEDS: Melatonin 3 MG TABLET 6 MG PO (01:39)
--- NOTE | 2020-09-03 04:13 | PM.EVENT ---
Event Note Date of Service: 09/03/20 Event Note: Acute coronary syndrome: At around 3:20 a.m. on 09/03/2020: RN mentioned that patient had an episode of an SVT and telemetry looks abnormal. EKG was done which showed some ST changes. Followed by patient became tachypneic; patient is on non-rebreather saturating at 93%. Spoke to , who reviewed the EKGs and mention patient possibly had STEMI; given patient's current clinical status, hypoxic respiratory failure with COVID-19 pneumonia on non-rebreather, might not be a catheterization candidate at the movement; suggested transfer to ICU and to start the patient on nitro drip. Spoke to Dr. Garland again -> who recommended to start the patient on heparin drip. Mentioned that patient needs to be stabilized 1st his current respiratory status and less likes a catheterization candidate at the moment. Discussed with the ICU attending DR Wells, who mentioned that he reviewed the EKGs and suggested to give the patient heparin drip and rectal aspirin and mentioned not to give nitro drip-> given concerns for inferior NM. Troponin result elevated to 15,000. Dr. Wells also mentioned to reach the family, regarding treatment options and the direction they wanted to pursue. 4:40AM: I tried to call patient's significant other at the couple times but unsuccessful, left message. 5:10AM:-spoke to the patient's Natalee, who wanted me to talk to the patient's daughter to make a decision for invasive versus conservative management. 5:15:-Called pt's Daughter Yamini (Ph [phone]) couple time with no answer, left message. With a call back number. 6:30 a.m.: Have not heard back from the patient's or patient's daughter; currently being medically managed. Patient is high risk for transfer and given and DNR DNI status, family deciding if they agree for the catheterization 6:50AM: -> spoke to the patient's daughter Yamini; had an extensive discussion about the patient's current clinical situation. 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 She mentioned that 2 days ago she discussed with his father about the code status and possible intubation and which he adamantly denied and he wanted to be DNR DNI. And Yamini decided to go with conservative management/medical management and movement and not to go for cardiac catheterization. I also spoke to Dr. Levy, AM hospitalist; and updated the above plan of care. Agreed to be day only her leg going home has had fecal intake swallow 15 go 8:00 a.m. to X minutes before BT help me of S
[2020-09-03] MEDS: Doxycycline Hyclate 100 MG in 0.9 % Sodium Chloride 250 ML 166.67 MG IV (04:33)
[2020-09-03 05:18] LABS: Hemoglobin 12.9 g/dl (14.0-18.0); Mean Corpuscular HGB Conc 34.9 g/dl (31.0-36.0); Mean Corpuscular Hemoglobin 31.5 pg (27.0-33.0); Mean Corpuscular Volume 90.5 fL (80-98); Mean Platelet Volume 10.1 fL (9.4-12.4); Red Blood Count 4.09 X10*6/uL (4.60-5.80); Red Cell Distribution Width 13.4 % (11.0-16.0); White Blood Count 17.4 X10*3/uL (4.8-10.8)
[2020-09-03] MEDS: Heparin Sodium,Porcine/1/2NS 25,000 UNIT/250 ML IV.SOLN 10.22 UNIT IVCONT (05:19)
[2020-09-03 05:24] LABS: Platelet Count 56 X10*3/uL (160-400)
[2020-09-03] MEDS: Aspirin 300 MG SUPP.RECT PR (05:33)
[2020-09-03 05:45] LABS: INTERNATIONAL NORM RATIO 1.9 (0.9-1.1); Prothrombin Time 23.3 SEC (10.8-13.0)
[2020-09-03 05:48] LABS: PTT Heparin Drip 28.7 SEC (53-77.9)
[2020-09-03] MEDS: Morphine Sulfate 2 MG/ML CARTRIDGE 1 MG IVPUSH ×2 (05:54→09:00)
[2020-09-03 06:03] LABS: VBG Base Excess -2.5 mmol/L; VBG HCO3 19 mmol/L; VBG pCO2 27 mmHg; VBG pH 7.46 (7.32-7.43); VBG pO2 87 mmHg
[2020-09-03 07:10] LABS: Venous Blood Gas Refer to POC result
--- NOTE | 2020-09-03 07:23 | MHC.PIE ---
2300 p - pt last known neuro 2249 of restless, impulsive, fixated on urinary frequency, able to state name & place, but difficulty with expressing needs - somewhat covid fog . max assisted from recliner to bed @ 2200. 2300 pt in bed noted to have right eye deviation unable to track focus toward left. some nystagmus noted. still stating name, date of no facial droop. PERRL wiggles toes to commands, squeezed hands weak bilat pt i - rapid response called after pt coughed up small amt of halie red blood for R eye deviation- team arrived rapidly , R.T., yina turk, Dr. Serra, HEEL NAIL RASPER/ICU Angelita & assessed. CT scan stat & transported via stretcher emergently on 100% nrb & high flow portable - negative acute bp elevated 192/95 94% sat on high flow o2 60L/100% + NRB 100% e - continue to monitor, eloquis remains on hold 0040 p - bp 204/106 hr 92 - call i - call to Dr. Merrill hospitalist labetalol 10mg IV given as ordered with repeat bp 140/75 e - continue to monitor. 0300 p - on monitor pt continues to be afib/aflutter with 8bt run VT earlier (reported to hospitalist) now with st elevations on monitor. pt noted to be belly breathing (abdominal muscles) reported to hospitalist Dr. Serra & reqested bedside evaluation. i - ekg 12 lead ordered & done. lots of artifact due to pt attempting to reach for o2 high flow o2 turbulence. repeated ekg x2 after shaved & STEMI noted consult ICU back shoe cutter here & reviewed ekg - ? transfer to icu depending on neurobiologist review. Dr. Garland consulted & reviewed ekg. orders received for heparin drip per protocol (started at 0521 after stat ptt-hd drawn. abg & vbg d/t poor stick & asa 300mg pr. repeat stat pcxr. morphine 1mg iv given for discomfort
--- NOTE | 2020-09-03 07:57 | P.CONCC_ITS ---
History of Present Illness Data of Consult Service Date: 09/03/20 Requesting physician: Raleigh Serra Primary Care Provider: Jeff Arreola MD [facility] Reason for consult: Worsening respiratory failure 74-year-old male who presented with severe bilateral COVID-19 pneumonitis and ARDS and who expressed while in perfect mental health unequivocally that he did not want intubation or resuscitation should this process not work out his known to have chronic persistent atrial fibrillation and has been taking apixaban and is a hypertensive on losartan and hydrochlorothiazide and last night he had altered mental status some short-lived focal symptomatology but definitely diminished responsiveness and he had been thrombocytopenic but that is apparently worsened with a platelet level of 56,000 but clearly developed increased work of breathing and and tachypnea and I was called a comparative EKG showed new ST elevation in inferior lateral distribution consistent with an infarct in evolution and IS the hospitalist to please give him rectal suppository of aspirin start him on heparin and discuss with family does have desirous of aggressive treatment they were namely the clinical laboratory manager because the thrombocytopenia with preclude the use of a thrombolytics agent and at that time the head CT scan actual interpretation was still pending although I did not see anything in particular Review of his chest CT scan showed negative angiogram but the extensive ground- glass infiltrates bilaterally from apex to base with with large areas of consolidation consistent with very severe COVID a/ARDS and I asked for a blood gas which is compensated with a compensated pH some very early reduction of seru m bicarb yet undefined but a compensated pH so he was managing to compensate although tachypneic in increased accessory muscle effort and this was on 100% non-rebreather The troponin night as for that was elevated at 15,000 thousand confirming the acute nature of this infarct and I did bedside echocardiography which revealed not just an akinetic but a thin and akinetic inferior wall with an estimated ejection fraction 35-50% 35-40% and right ventricle was normal in size with normal systolic function no effusion no significant mitral regurgitation His neck veins were were not at all prominent and his carotid upstrokes were mildly diminished indicating diminish stroke work reserve as the echo implied he also had no primary valve disease of any sort and his skin showed no evidence of livedo no acrocyanosis Review of Systems Review of Systems: Yes Unobtainable due to mental status PMFSH Past Medical History Medical History (Updated 09/03/20 @ 08:05 by Juan Carlos Wells MD) Afib Hepatitis Hypertension Hypertension Lymphoma Mass of appendix Persistent atrial fibrillation Family History Family History Father Medical history unknown Mother Medical history unknown Family history: reviewed and not pertinent Surgical History Surgical History History of biopsy History of cholecystectomy History of surgery Social History Social History Household Members: None Housing: Apartment Alcohol intake: unknown Smoking Status: Never smoker Smoked in Last 30 Days: No Use of substances other than those prescribed or required for medical reasons: No Currently Displaying Signs/Symptoms of Drug Intoxication Withdrawal: No Have you been hit, kicked, punched, or otherwise hurt by someone within the past year? If so, by whom?: No Do you feel safe in your current relationship?: Yes Is there a partner from a previous relationship who is making you feel unsafe now?: No Are you made to feel afraid or neglected: No Advance Directives: Yes Advance Directives on File: Yes Advance Directives Date on File: 05/06/20 Do you have thoughts of harming others: None Do you have a plan to hurt others: No Plan Recently lost weight without trying: Unsure service: Yes Current occupational status: retired [employer] Allergies Allergy/AdvReac Type Severity Reaction Status Date / Time No Known Allergies Allergy Verified 08/30/20 13:51 [No Known Allergies*] Active Medications: Current Medications Generic Name Dose Route Start Last Admin Trade Name Freq PRN Reason Stop Dose Admin Apixaban 5 mg 08/30/20 21:00 09/01/20 20:29 Apixaban 5 Mg Tablet PO 5 mg BID AMY Administration Benzonatate 100 mg 09/02/20 02:25 09/03/20 00:01 Benzonatate 100 Mg Capsule PO 100 mg TID PRN Administration Cough Fluticasone Propionate 2 spray 09/01/20 01:30 09/02/20 09:58 Fluticasone Propionate Nasal 16 Gm [place] NOSTRIL-B Not Given DAILY AMY Guaifenesin/Codeine Phosphate 5 ml 09/02/20 02:40 09/03/20 00:01 Guaifen/Codeine Sf 200/20/10ml 10 Ml Liquid PO 5 ml Q6H PRN Administration Cough Doxycycline Hyclate 100 mg/ 250 mls @ 166.67 mls/hr 09/02/20 17:00 09/03/20 06:04 Sodium Chloride IV Infused Q12H AMY Infusion Heparin Sodium/Sodium Chloride 25,000 unit in 250 mls @ 0 mls/hr 09/03/20 04:45 09/03/20 05:19 IVCONT 11.97 units/kg/hr .Q0M AMY 10.22 mls/hr Administration Protocol Per Protocol Labetalol HCl 10 mg 09/03/20 00:26 09/03/20 00:48 Labetalol Hcl 100 Mg/20 Ml Vial IVPUSH 10 mg Q4H PRN Administration BP>180/90 Latanoprost 1 drop 08/30/20 21:00 09/02/20 20:04 Latanoprost 0.005 % Ophth Jennifer 2.5 Ml Drops EYE-BOTH 1 drop BEDTIME AMY Administration Lorazepam 0.5 mg 08/30/20 20:58 09/02/20 22:15 Lorazepam 0.5 Mg Tablet PO 0.5 mg BEDTIME PRN Administration anxiety Losartan Potassium 100 mg 08/31/20 09:00 09/02/20 09:05 Losartan Potassium 50 Mg Tablet PO 100 mg DAILY AMY Administration Protocol Methylprednisolone Sodium Succinate 125 mg 09/02/20 16:15 09/02/20 22:49 Methylprednisolone Sod Succ/Pf 125 Mg/2 Ml Vial IVPUSH 125 mg Q8H AMY Administration Morphine Sulfate 1 mg 09/03/20 05:38 09/03/20 05:54 Morphine Sulfate 2 Mg/Ml Cartridge IVPUSH 1 mg Q6H PRN Administration Anxiety Multivitamins/Minerals 1 tab 08/31/20 09:00 09/02/20 09:07 Multivitamin With Minerals Tablet PO 1 tab DAILY AMY Administration Sodium Chloride 3 ml 08/31/20 00:00 09/02/20 20:06 0.9 % Sodium Chloride Flush 3 Ml Syringe IVFLUSH 3 ml QSHIFT AMY Administration Home Medications Medication Instructions Recorded Confirmed Last Taken Type Eliquis 1 tab PO BID 05/05/20 08/30/20 1 Day Ago History ~08/29/20 latanoprost 1 drp OPHTHALMIC (EYE) BEDTIME 05/05/20 08/30/20 1 Day Ago History ~08/29/20 losartan 100 mg tablet 100 mg PO DAILY 05/26/20 08/30/20 1 Day Ago History ~08/29/20 acetaminophen 500 mg tablet 500 mg PO Q6H PRN 06/14/20 08/30/20 1 Day Ago History ~08/29/20 mwiabhmuvydu-ylydrcym-bvnsxo tablet 1 tab PO DAILY 06/14/20 08/30/20 1 Day Ago History ~08/29/20 Physical Exam Vital Signs: Vital Signs: Last Vital Signs Temp 99.1 F 09/03/20 07:46 Pulse 78 09/03/20 07:46 Resp 35 H 09/03/20 07:46 BP 139/78 09/03/20 07:46 Pulse Ox 97 09/03/20 07:46 Body Mass Index 30.4 Results Labs CBC & Chem 7: 09/03/20 05:00 09/02/20 23:26 Labs: Short CBC 09/02/20 09/03/20 Range/Units 23:26 05:00 WBC 15.9 H 17.4 H (4.8-10.8) X10*3/uL Hgb 13.9 L 12.9 L (14.0-18.0) g/dl Hct 39.5 L 37.0 L (42-52) % Plt Count 101 L D 56 L D (160-400) X10*3/uL BMP 09/02/20 09/02/20 05:35 23:26 Sodium 138 137 Potassium 4.2 D 4.1 Chloride 107 106 Carbon Dioxide 19 L 22 BUN 30 H Creatinine 0.73 Calcium 8.6 D Microbiology Microbiology Results: Microbiology 08/30/20 16:59 Blood - Venous Blood Culture - Preliminary No growth after 48 hours. 08/30/20 16:42 Blood - Venous Blood Culture - Preliminary No growth after 48 hours. Assessment and Plan (1) Pneumonia due to 2019-nCoV: Status: Acute (2) Hepatitis: Status: Acute (3) Persistent atrial fibrillation: Status: Acute (4) Rhabdomyolysis: Qualifiers: Rhabdomyolysis type: non-traumatic Qualified Code(s): M62.82 - Rhabdomyolysis Status: Acute (5) Elevated troponin: Status: Acute (6) Weakness: Status: Acute (7) Hematuria: Problem details: 20 min reviewing chart evaluating patient and documenting; sent to er Status: Acute (8) Hypertension: Problem details: cont same regimen; 20 min reviewing chart, evaluating patient and documenting Status: Acute (9) Bradycardia: Status: Acute (10) Intestinal infection: Problem details: cont same meds; seeing his oncologist Status: Acute (11) Abdominal pain: Qualifiers: Abdominal location: generalized Qualified Code(s): R10.84 - Generalized abdominal pain Status: Acute (12) ARDS (adult respiratory distress syndrome): Status: Acute (13) Thrombocytopenia: Status: Acute (14) Acute [place] inferior lateral first episode care: Status: Acute Knowing that then not interested in advanced care and that he he has significant enough comorbidity namely they thrombocytopenia he is not a comfortable candidate for lysis and we also are not really aware of whether not he might have extensive brain injury and therefore pose a bleeding risk I would just continue heparin an aspirin but express possible need the no for comfort measures because and this just adds an insurmountable gravity to his prognosis which is already fairly apparent from the extent of the COVID pneumonia
--- NOTE | 2020-09-03 08:42 | PM.PNCARD ---
Subjective Subjective Date of Service: 09/03/20 Interval history: Patient not able to respond and give any answers. Review of Systems Review of Systems Yes Unobtainable due to mental status Physical Exam Vital Signs: Last Vital Signs Temp 99.1 F 09/03/20 07:46 Pulse 78 09/03/20 07:46 Resp 35 H 09/03/20 07:46 BP 139/78 09/03/20 07:46 Pulse Ox 97 09/03/20 07:46 Body Mass Index 30.4 Const General: lethargic and patient obtunded Orientation/consciousness: patient obtunded and lethargic [facility] Other: Unremarkable Neck Neck: Yes normal visual inspection Chest Chest palpation & inspection: normal inspection of the chest Resp Auscultation: crackles and diminished lung sounds Cardio Jugular venous distension: no JVD Palpation: normal PMI Heart sounds: S1 normal heart sound present, S2 normal heart sound present, no gallops, no murmurs and no rubs GI Palpation (GI): Soft to palpation Back/Spine/Pelvis Other: unremarkable Skin General skin exam: no rashes or lesions noted Neuro General: patient obtunded Extrem General: Yes no clubbing, cyanosis or edema Psych Mental Status: other Results Labs and Meds Result diagrams: 09/03/20 05:00 09/02/20 23:26 Lab results: Laboratory Results - last 24 hr 09/02/20 09/02/20 09/03/20 23:26 23:26 03:44 WBC 15.9 H RBC 4.37 L Hgb 13.9 L Hct 39.5 L MCV 90.4 MCH 31.8 MCHC 35.2 RDW 13.4 Plt Count 101 L D MPV 10.0 Immature Gran % (Auto) 0.8 H Neut % (Auto) 94.2 H Lymph % (Auto) 2.3 L [place] % (Auto) 2.6 Eos % (Auto) 0.0 Baso % (Auto) 0.1 Lymph # (Auto) 0.4 L [place] # (Auto) 0.4 Eos # (Auto) 0.0 Baso # (Auto) 0.0 Abs Immat Gran (auto) 0.12 H Absolute Neuts (auto) 15.0 H Absolute Nucleated RBC 0.000 Nucleated RBC % (auto) 0.0 Smear Tech's Comments VERIFIED PT INR PTT (Heparin Protocol) VBG pH VBG pCO2 VBG pO2 VBG HCO3 VBG O2 Saturation VBG Base Excess Sodium 137 Potassium 4.1 Chloride 106 Carbon Dioxide 22 Anion Gap 13 BUN 30 H Creatinine 0.73 Estim Creat Clear Calc 89.5 Estimated GFR > 60 Random Glucose 207 H Calcium 8.6 D Troponin I High Sens 70776.0 H D 09/03/20 09/03/20 09/03/20 05:00 05:00 05:54 WBC 17.4 H RBC 4.09 L Hgb 12.9 L Hct 37.0 L MCV 90.5 MCH 31.5 MCHC 34.9 RDW 13.4 Plt Count 56 L D MPV 10.1 Immature Gran % (Auto) Neut % (Auto) Lymph % (Auto) [place] % (Auto) Eos % (Auto) Baso % (Auto) Lymph # (Auto) [place] # (Auto) Eos # (Auto) Baso # (Auto) Abs Immat Gran (auto) Absolute Neuts (auto) Absolute Nucleated RBC 0.000 Nucleated RBC % (auto) 0.0 Smear Tech's Comments PT 23.3 H INR 1.9 H PTT (Heparin Protocol) 28.7 L VBG pH 7.46 H VBG pCO2 27 VBG pO2 87 VBG HCO3 19 VBG O2 Saturation 98.0 VBG Base Excess -2.5 Sodium Potassium Chloride Carbon Dioxide Anion Gap BUN Creatinine Estim Creat Clear Calc Estimated GFR Random Glucose Calcium Troponin I High Sens ECG Attestation: I personally reviewed and interpreted this ECG as follows: Interpretation: EKG with evidence of ST elevation in the inferior leads. This is suggestive of inferior STEMI. Imaging Radiologist's impression: Impressions Chest CTA 09/02/20 10:20 IMPRESSION: 1. No pulmonary embolism or thoracic aortic dissection. 2. Diffuse patchy bilateral groundglass opacities with confluence upper, mid, and lower zones. 3. No pneumothorax or pneumomediastinum. No effusion. 4. Mediastinal adenopathy. VTE: negative Head CT 09/02/20 23:42 IMPRESSION: Suboptimal assessment due to motion artifact. No acute findings identified. This critical result was discussed with Dr. Serra on 09/03/2020 12:02 AM, and it was ascertained that the content and urgency of the report was understood at the time of direct communication. Chest X-Ray 09/03/20 04:45 IMPRESSION: Redemonstrated diffuse heterogeneous airspace opacities, similar to recent prior. Progress Note: A&P Assessment and plan (1) Acute [place] inferior lateral first episode care: Status: Acute (2) Thrombocytopenia: Status: Acute (3) ARDS (adult respiratory distress syndrome): Status: Acute (4) Pneumonia due to 2019-nCoV: Status: Acute (5) Persistent atrial fibrillation: Status: Acute (6) Rhabdomyolysis: Status: Acute Assessment and Plan: EKG is a suggestive of acute ST-elevation infarction inferior wall and possibly lateral wall as well. High sensitivity troponins markedly elevated at more than 15,000. Patient is very ill however with COVID infection and worsening respiratory status and not able to even communicate. He is also requiring a lot of oxygen and tachypneic. Discussed in detail with the patient's daughter who came to the bedside. Explained that cardiac catheterization is not appropriate in this setting. She would like the same and states that patient is also not someone who would like any invasive procedures. Hence no plans for cardiac catheterization or any invasive care. Further decisions need to be made regarding continuing medical therapy versus comfort care only. Discussed in detail with the overnight hospitalist several times, tree chipper, nursing staff, daytime hospitalist. Total time spent in this critically ill patient-60 minutes. Fall Risk Details Current Medications: Current Medications Generic Name Dose Route Start Last Admin Trade Name Freq PRN Reason Stop Dose Admin Benzonatate 100 mg 09/02/20 02:25 09/03/20 00:01 Benzonatate 100 Mg Capsule PO 100 mg TID PRN Administration Cough Fluticasone Propionate 2 spray 09/01/20 01:30 09/02/20 09:58 Fluticasone Propionate Nasal 16 Gm [place] NOSTRIL-B Not Given DAILY AMY Guaifenesin/Codeine Phosphate 5 ml 09/02/20 02:40 09/03/20 00:01 Guaifen/Codeine Sf 200/20/10ml 10 Ml Liquid PO 5 ml Q6H PRN Administration Cough Doxycycline Hyclate 100 mg/ 250 mls @ 166.67 mls/hr 09/02/20 17:00 09/03/20 06:04 Sodium Chloride IV Infused Q12H AMY Infusion Heparin Sodium/Sodium Chloride 25,000 unit in 250 mls @ 0 mls/hr 09/03/20 04:45 09/03/20 05:19 IVCONT 11.97 units/kg/hr .Q0M AMY 10.22 mls/hr Administration Protocol Per Protocol Labetalol HCl 10 mg 09/03/20 00:26 09/03/20 00:48 Labetalol Hcl 100 Mg/20 Ml Vial IVPUSH 10 mg Q4H PRN Administration BP>180/90 Latanoprost 1 drop 08/30/20 21:00 09/02/20 20:04 Latanoprost 0.005 % Ophth Jennifer 2.5 Ml Drops EYE-BOTH 1 drop BEDTIME AMY Administration Lorazepam 0.5 mg 08/30/20 20:58 09/02/20 22:15 Lorazepam 0.5 Mg Tablet PO 0.5 mg BEDTIME PRN Administration anxiety Losartan Potassium 100 mg 08/31/20 09:00 09/02/20 09:05 Losartan Potassium 50 Mg Tablet PO 100 mg DAILY AMY Administration Protocol Methylprednisolone Sodium Succinate 125 mg 09/02/20 16:15 09/02/20 22:49 Methylprednisolone Sod Succ/Pf 125 Mg/2 Ml Vial IVPUSH 125 mg Q8H AMY Administration Morphine Sulfate 1 mg 09/03/20 05:38 09/03/20 05:54 Morphine Sulfate 2 Mg/Ml Cartridge IVPUSH 1 mg Q6H PRN Administration Anxiety Multivitamins/Minerals 1 tab 08/31/20 09:00 09/02/20 09:07 Multivitamin With Minerals Tablet PO 1 tab DAILY AMY Administration Sodium Chloride 3 ml 08/31/20 00:00 09/02/20 20:06 0.9 % Sodium Chloride Flush 3 Ml Syringe IVFLUSH 3 ml QSHIFT AMY Administration Time Spent With Patient Time: Total time spent is greater than 50% in coordination of care (as documented) at patient's floor/unit and/or counseling patient: Time with patient: less than 15 minutes Procedures Date of Service Date of Service: 09/03/20
[2020-09-03 10:24] LABS: Troponin-I High Sensitivity 18017.8 ng/L (<3.5-35.0)
--- NOTE | 2020-09-03 13:05 | PM.DDS ---
Discharge Sum: Prov Provider Primary care physician: Jeff Arreola MD Consults: 08/30/20 20:55 Consult to Nephrology Routine Consulting Provider: Alex Benítez Reason for consultation: rhabdomyolosis 08/30/20 21:07 Consult to Cardiology Routine Consulting Provider: Dalton Gomez Reason for consultation: elevated troponin Consult to Infectious Diseases Routine Consulting Provider: Charlotte Means Reason for consultation: covid pna 09/02/20 02:26 Consult to Pulmonology Routine Consulting Provider: Seb Younger Reason for consultation: hemoptysis; p/w COVID pNA 09/03/20 00:18 Consult to Neurology Routine Consulting Provider: [facility] Reason for consultation: ?lateral rectus palsy 09/03/20 04:27 Consult to Critical Care Stat Consulting Provider: Juan Carlos Wells Reason for consultation: PAradoxical abd breathing; COVID PNA; Hypopxia. Discharge Sum: Diag PCOD Cause of : 2019 novel coronavirus disease (COVID-19) Contributing Factors (1) Acute AL inferior lateral first episode care: (2) Thrombocytopenia: (3) ARDS (adult respiratory distress syndrome): (4) Pneumonia due to 2019-nCoV: (5) Persistent atrial fibrillation: (6) Rhabdomyolysis: Discharge Sum: Summary Date and Time Date of admission: 08/30/20 20:55 Summary Details: HPI 74 year-old male with a past medical history of hypertension, hyperlipidemia, AFib on Eliquis, history of non-Hodgkin's lymphoma presented to the hospital with a chief complaint of fall. Patient reported that he went to the bathroom and subsequently when he is trying to come back he has slipped as he was wearing socks and fell on the floor and was not able to get up because he felt weak all over. Denies any pain in the hips or back. Denies any numbness tingling. Denies any headaches. Denies any head strike or loss of consciousness. Denies any seizure-like activity. Patient denied any chest pain palpitations lightheadedness or dizziness at the time of the episode. Denied any of these symptoms at the time of interview as well. Denies any urinary complaints. Review of all other systems is negative except mentioned above ER course: Per ER team patient exam was nonfocal CT head showed no acute findings lab showed rhabdomyolysis, normal renal function, also noted to have elevated troponins and liver enzymes presumed to be in the setting of rhabdomyolysis. Patient came back positive for COVID-19 pneumonia saturating at 92% on room air and subsequently placed on 2 L of oxygen. Per RN in the ER patient was desaturating to 86% with minimal like activity. Subsequently placed on nasal cannula. Patient appears comfortable breathing comfortably. No evidence of respiratory distress. No leukocytosis or fevers. Admitted to the hospital for further management. Hospital course 74-year-old male admitted with COVID pneumonia acute hypoxic respiratory failure and rhabdomyolysis, patient was started on IV dexamethasone, supportive management and oxygen supplement, CPK level was significantly high on admission likely secondary to fall, patient received IV fluid, CPK level was trending down, patient also found to have significant transaminitis on admission, hepatitis panel was negative, ultrasound liver shows increased echogenicity, transaminitis was likely secondary to COVID, patient was seen by infectious disease recommended not a candidate of remdesivir given significantly elevated LFT, patient's rhabdomyolysis was resolving , patient became more hypoxic placed on high-flow, on 09/02/2020 at night patient developed possible stroke and developed STEMI, troponin were significantly elevated in 15,000 range , cardiology was consulted , patient's mental status was worse , goals of care discussed with patient's daughter recommended medical management , patient was not a candidate for tPA given significant thrombocytopenia , patient's mental status worsend patient's breathing was labored, patient was DNR DNI, patient was made comfort care after family decided, patient on 09/03/2020 at 09:40am , family was at bedside Additional Data Attending physician: Cam Garcia MD
== END 2020-09-03 11:14 | disposition expired | DRG 177 ==
LOC: HO.ED 16:56 → HO.EDOVER 21:23 → HO.IMC 21:24
PROVIDERS: Emergency Medicine; Admitting Provider Hospitalist; Emergency Provider Emergency Medicine; PCP Internal Medicine; Visit Provider Internal Medicine
DX: U07.1 COVID-19 (principal); J12.82 Pneumonia due to coronavirus disease 2019; J80 Acute respiratory distress syndrome; I21.9 Acute myocardial infarction, unspecified; I48.19 Other persistent atrial fibrillation; R04.2 Hemoptysis; I47.1 Supraventricular tachycardia; E78.5 Hyperlipidemia, unspecified; T79.6XXA Traumatic ischemia of muscle, initial encounter; R74.01 Elevation of levels of liver transaminase levels; E87.6 Hypokalemia; W19.XXXA Unspecified fall, initial encounter; Y93.9 Activity, unspecified; Y92.003 Bedroom of unspecified non-institutional (private) residence as the place of occurrence of the external cause; Y99.9 Unspecified external cause status; Z79.01 Long term (current) use of anticoagulants; Z79.899 Other long term (current) drug therapy; Z66 Do not resuscitate
CPT/HCPCS: 36415; 36600; 70450; 71045; 71275; 76705; 80048; 80053; 80076; 81001; 82550; 82728; 83605; 83615; 83735; 84484; 85025; 85027; 85610; 85730; 86704; 86706; 86709; 86803; 87040; 87340; 87635; 93005; 94799; 99285; C1758; J2270; J2930; J8540; Q9967